=== PATIENT | female | born 1995 | race Caucasian/White ===

== ENCOUNTER 2017-02-25 19:06 | Emergency (ER) | payer MEDICAID ==
[2017-02-25] MEDS ORDERED: Zofran 4 MG/2 ML VIAL IV ONE (20:08)
[2017-02-25] MEDS ORDERED: TORAdol 30 mg Injection IV ONE (20:08)
[2017-02-25] MEDS ORDERED: Pepcid 20 MG VIAL IV ONE ×3 (20:08→20:23)
[2017-02-25] MEDS ORDERED: Zofran 4 MG/2 ML VIAL ONE ×2 (20:15→20:23)
[2017-02-25] MEDS ORDERED: TORAdol 30 mg Injection ONE ×2 (20:15→20:23)
[2017-02-25 20:37] LABS: BASOPHIL % 0.1 % (0.0-0.4); Eosinophil % 0.1 % (0.00-5.0); Granulocytes % 88.4 % (36.0-66.0); Lymphocytes % 6.4 % (24.0-44.0); Mean Cell Volume 87.2 fl (78-100); Mean Corpuscular Hemoglobin 28.2 pg (26-32); Mean Platelet Volume 10.1 fl (6-9.5); Platelet Count 272 K/mm3 (150-450); Red Blood Count 4.68 M/mm3 (4.1-5.4); White Blood Count 14.8 K/mm3 (4.0-10.5)
[2017-02-25 20:43] LABS: Bilirubin NEGATIVE (NEGATIVE); Blood TRACE NON-HEM Ery/ul (0-5); COMPLETE URINE MICROSCOPIC? YES; Collection Type VOID; Glucose NEGATIVE (NEGATIVE); Leukocyte Esterase NEGATIVE (NEGATIVE); Mucus MODERATE /HPF (NEGATIVE); WBC 0-2 /HPF (0-5)
[2017-02-25 20:44] LABS: ADD URINE CULTURE? YES (NO); Bacteria MODERATE /HPF (NEGATIVE); Epithelial Cells MODERATE /HPF (FEW)
--- NOTE | 2017-02-25 20:49 | ERPHSYRPT ---
- History of Present Illness Time Seen by Provider: 02/25/17 19:35 Historian: patient Exam Limitations: no limitations Patient Subjective Stated Complaint: alert. has a bunch of concerns. vomiting and nausea. states low abdominal pain with vaginal odor. states talked with MD office and they were suppose to call out a prescription for clindamycin and diflucan. states RX was not there. vaginal drainage yellow. has burning with urinating. Triage Nursing Assessment: alert with low abdominal pain. period at thanksgiving. has had vaginal odor. abdomen soft non tender. + BSx4 states dysuria. able to obtain a small urine. Physician History: Pt started c/o lower abdominal cramps 4 days ago, started vomiting today, developed diarrhea, also c/o foul smelling vaginal discharge for few days. She apparently called her doctor, and antibiotics and Diflucan was called in , she was unable to fill. She denies fever, bloody or black stools, urinary complaints , her last MP was 2 weeks ago, normal, denies current vaginal bleeding. Timing/Duration: day(s) (4), intermittent Activities at Onset: none Quality: cramping Abdominal Pain Onset Location: periumbilical Pain Radiation: no radiation Severity of Pain-Max: severe Severity of Pain-Current: mild Modifying Factors: Improves With: nothing Associated Symptoms: diarrhea, nausea, vomiting Previous symptoms: no prior history Allergies/Adverse Reactions: amitriptyline [From Elavil] Allergy (Verified 02/25/17 20:03) amoxicillin [Amoxicillin] Allergy (Verified 02/25/17 20:03) metronidazole [From Flagyl] Allergy (Verified 02/25/17 20:03) Metronidazole HCl [From Flagyl] Allergy (Verified 02/25/17 20:03) ofloxacin [From Floxin] Allergy (Verified 02/25/17 20:03) Stcakmx-[id number]-[id number] Reductase Inhibitor Allergy (Verified 02/25/17 20:04) caffeine Adverse Reaction (Verified 02/25/17 20:03) codeine Adverse Reaction (Verified 02/25/17 20:03) Home Medications: Famotidine 20 mg [Pepcid 20 MG] 20 mg PO BID 02/25/17 [History] Hctz/Triamteren 37.5 mg/25 mg* [Maxzide-25MG Tablet] 1 tab PO DAILY 02/25/17 [History] Hydroxychloroquine Sulfate [Plaquenil] 200 mg PO BID 02/25/17 [History] Oxcarbazepine [Trileptal] 600 mg PO BID 02/25/17 [History] PANTOPRAZOLE 40 mg Tablet [Protonix 40MG Tablet] 40 mg PO QPM 02/25/17 [ History] Propranolol HCl 80 mg PO BID 02/25/17 [History] Sertraline HCl [Zoloft] 150 mg PO DAILY 02/25/17 [History] Trazodone HCl [Desyrel] 75 mg PO DAILY 02/25/17 [History] Verapamil HCl [Verapamil ER] 240 mg PO DAILY 02/25/17 [History] Hx Tetanus, Diphtheria Vaccination/Date Given: Yes Hx Influenza Vaccination/Date Given: No Hx Pneumococcal Vaccination/Date Given: No Immunizations Up to Date: (unknown) - Review of Systems Constitutional: No Symptoms Abdominal/Gastrointestinal: Abdominal Pain, Nausea, Vomiting, Diarrhea Genitourinary Symptoms: Vaginal Discharge All Other Systems: Reviewed and Negative - Past Medical History Pertinent Past Medical History: Yes Neurological History: No Pertinent History ENT History: No Pertinent History Cardiac History: High Cholesterol, Hypertension Respiratory History: No Pertinent History Endocrine Medical History: No Pertinent History Musculoskeletal History: No Pertinent History GI Medical History: Other History: No Pertinent History Psycho-Social History: Anxiety, Bipolar, Depression Female Reproductive Disorders: No Pertinent History - Past Surgical History Past Surgical History: Yes Neuro Surgical History: No Pertinent History Cardiac: No Pertinent History Respiratory: No Pertinent History Gastrointestinal: No Pertinent History Genitourinary: No Pertinent History Musculoskeletal: No Pertinent History Female Surgical History: No Pertinent History Other Surgical History: EAR SURG - Social History Smoking Status: Never smoker Exposure to second hand smoke: No Drug Use: none Patient Lives Alone: No Significant Family History: no pertinent family hx - Female History Hx Last Menstrual Period: 01/12/2017 Hx Now: No - Nursing Vital Signs Nursing Vital Signs: Initial Vital Signs Temperature 98.7 F 02/25/17 19:44 Pulse Rate 94 H 02/25/17 19:44 Respiratory Rate 18 02/25/17 19:44 Blood Pressure 126/75 02/25/17 19:44 O2 Sat by Pulse Oximetry 97 02/25/17 19:44 Pain Scale Pain Intensity 5 - Physical Exam General Appearance: no apparent distress Eye Exam: eyes nml inspection Ears, Nose, Throat Exam: normal ENT inspection Neck Exam: normal inspection, non-tender, supple Respiratory Exam: normal breath sounds, lungs clear Cardiovascular Exam: regular rate/rhythm, normal heart sounds, normal peripheral pulses, No murmur Gastrointestinal/Abdomen Exam: soft, normal bowel sounds, tenderness (diffuse, mild), No ecchymosis, No rebound, No hernia, No organomegaly Pelvic Exam: normal external exam, adnexal tenderness (mild, right), vaginal discharge (mild, white, thick), other (no foreign body found), No adnexal mass, No cervical motion tenderness, No vaginal bleeding, No uterine tenderness Extremity Exam: normal inspection, No calf tenderness Neurologic Exam: alert, oriented x 3, normal mood/affect Skin Exam: normal color, warm, dry, No rash Lymphatic Exam: No adenopathy SpO2: 97 Oxygen Delivery: Room Air - CT Exams Abdomen/Pelvis CT Interpretation: Negative Ordered Tests: Active Orders 24 hr Category Date Time Status Clean Catch Urine Specimen STAT Care 02/25/17 20:06 Active ABDOMEN AND PELVIS W CONTRAST [CT] Stat Exams 02/25/17 20:06 Taken CBC W DIFF Stat Lab 02/25/17 20:34 Completed CMP Stat Lab 02/25/17 20:34 Completed CULTURE,URINE Stat Lab 02/25/17 20:15 Received HCG,QUALITATIVE URINE Stat Lab 02/25/17 20:15 Completed LIPASE Stat Lab 02/25/17 20:34 Completed UA W/ MICROSCOPIC Stat Lab 02/25/17 20:15 Completed Wet Prep Stat Lab 02/25/17 22:00 Completed Medication Summary Discontinued Medications Generic Name Dose Route Start Last Admin Trade Name Emmy PRN Reason Stop Dose Admin Azithromycin 1,000 mg 02/25/17 22:23 02/25/17 22:26 Zithromax 250 Mg Tablet PO 02/25/17 22:24 1,000 mg STAT ONE Administration Azithromycin Confirm 02/25/17 22:25 Zithromax 250 Mg Tablet Administered 02/25/17 22:26 Dose 1,000 mg .ROUTE .STK-MED ONE Famotidine 20 mg 02/25/17 20:08 02/25/17 20:42 Pepcid 20 Mg Vial IV 02/25/17 20:09 20 mg STAT ONE Administration Famotidine Confirm 02/25/17 20:15 Pepcid 20 Mg Vial Administered 02/25/17 20:16 Dose 20 mg IV .STK-MED ONE Famotidine Confirm 02/25/17 20:23 Pepcid 20 Mg Vial Administered 02/25/17 20:24 Dose 20 mg IV .STK-MED ONE Ketorolac Tromethamine 30 mg 02/25/17 20:08 02/25/17 20:42 Toradol 30 Mg Injection IV 02/25/17 20:09 30 mg STAT ONE Administration Ketorolac Tromethamine Confirm 02/25/17 20:15 Toradol 30 Mg Injection Administered 02/25/17 20:16 Dose 30 mg .ROUTE .STK-MED ONE Ketorolac Tromethamine Confirm 02/25/17 20:23 Toradol 30 Mg Injection Administered 02/25/17 20:24 Dose 30 mg .ROUTE .STK-MED ONE Ondansetron HCl 4 mg 02/25/17 20:08 02/25/17 20:42 Zofran 4 Mg/2 Ml Vial IV 02/25/17 20:09 4 mg STAT ONE Administration Ondansetron HCl Confirm 02/25/17 20:15 Zofran 4 Mg/2 Ml Vial Administered 02/25/17 20:16 Dose 4 mg .ROUTE .STK-MED ONE Ondansetron HCl Confirm 02/25/17 20:23 Zofran 4 Mg/2 Ml Vial Administered 02/25/17 20:24 Dose 4 mg .ROUTE .STK-MED ONE Lab/Rad Data: Laboratory Result Diagrams 02/25/17 20:34 02/25/17 20:34 Laboratory Results 02/25/17 02/25/17 02/25/17 Range/Units 22:00 20:34 20:34 WBC 14.8 H (4.0-10.5) K/mm3 RBC 4.68 (4.1-5.4) M/mm3 Hgb 13.2 (12.0-16.0) gm/dl Hct 40.8 (35-47) % MCV 87.2 (78-100) fl MCH 28.2 (26-32) pg MCHC 32.4 (32-36) g/dl RDW 14.0 (11.5-14.0) % Plt Count 272 (150-450) K/mm3 MPV 10.1 H (6-9.5) fl Gran % 88.4 H (36.0-66.0) % Lymphocytes % 6.4 L (24.0-44.0) % Monocytes % 5.0 (0.0-12.0) % Eosinophils % 0.1 (0.00-5.0) % Basophils % 0.1 (0.0-0.4) % Basophils # 0.02 (0-0.4) Sodium 139 (136-145) mEq/L Potassium 3.7 (3.5-5.1) mEq/L Chloride 104 (98-107) mEq/L Carbon Dioxide 21.0 (21-32) mEq/L Anion Gap 17.6 H (5-15) MEQ/L BUN 11 (9-20) mg/dL Creatinine 0.92 (0.55-1.30) mg/dl Estimated GFR > 60 ML/MIN Glucose 92 (70-110) MG/DL Calcium 9.2 (8.5-10.1) mg/dL Total Bilirubin 0.50 (0.2-1.0) mg/dL AST 22 (15-37) U/L ALT 13 (12-78) U/L Alkaline Phosphatase 86 (46-116) U/L Serum Total Protein 7.8 (6.4-8.2) gm/dL Albumin 3.7 (3.4-5.0) g/dL Lipase 123 (73-393) U/L Ur Collection Type Urine Color (YELLOW) Urine Appearance (CLEAR) Urine pH (5-6) Ur Specific [place] (1.005-1.025) Urine Protein (Negative) Urine Ketones (NEGATIVE) Urine Blood (0-5) Lon/ul Urine Nitrite (NEGATIVE) Urine Bilirubin (NEGATIVE) Urine Urobilinogen (0-1) mg/dL Ur Leukocyte Esterase (NEGATIVE) Urine Microscopic RBC (0-2) /HPF Urine Microscopic WBC (0-5) /HPF Ur Epithelial Cells (FEW) /HPF Urine Bacteria (NEGATIVE) /HPF Urine Mucus (NEGATIVE) /HPF Urine Culture Reflexed (NO) Urine Glucose (NEGATIVE) mg/dL Urine HCG, Qual (Negative) WBC (Wet Prep) Rare RBC (Wet Prep) None Seen Epi Cells (Wet Prep) Few Bacteria (Wet Prep) Few Clue Cells (Wet Prep) Rare Trichomonas (Wet Prep) None Seen Budding Yeast (Wet Prp) None Seen Specimen Received 02/25/17 02/25/17 Range/Units 20:15 20:15 WBC (4.0-10.5) K/mm3 RBC (4.1-5.4) M/mm3 Hgb (12.0-16.0) gm/dl Hct (35-47) % MCV (78-100) fl MCH (26-32) pg MCHC (32-36) g/dl RDW (11.5-14.0) % Plt Count (150-450) K/mm3 MPV (6-9.5) fl Gran % (36.0-66.0) % Lymphocytes % (24.0-44.0) % Monocytes % (0.0-12.0) % Eosinophils % (0.00-5.0) % Basophils % (0.0-0.4) % Basophils # (0-0.4) Sodium (136-145) mEq/L Potassium (3.5-5.1) mEq/L Chloride (98-107) mEq/L Carbon Dioxide (21-32) mEq/L Anion Gap (5-15) MEQ/L BUN (9-20) mg/dL Creatinine (0.55-1.30) mg/dl Estimated GFR ML/MIN Glucose (70-110) MG/DL Calcium (8.5-10.1) mg/dL Total Bilirubin (0.2-1.0) mg/dL AST (15-37) U/L ALT (12-78) U/L Alkaline Phosphatase (46-116) U/L Serum Total Protein (6.4-8.2) gm/dL Albumin (3.4-5.0) g/dL Lipase (73-393) U/L Ur Collection Type VOID Urine Color YELLOW (YELLOW) Urine Appearance CLEAR (CLEAR) Urine pH 5.0 (5-6) Ur Specific [place] 1.020 (1.005-1.025) Urine Protein TRACE (Negative) Urine Ketones NEGATIVE (NEGATIVE) Urine Blood TRACE NON-HEM (0-5) Lon/ul Urine Nitrite NEGATIVE (NEGATIVE) Urine Bilirubin NEGATIVE (NEGATIVE) Urine Urobilinogen NORMAL (0-1) mg/dL Ur Leukocyte Esterase NEGATIVE (NEGATIVE) Urine Microscopic RBC 2-5 (0-2) /HPF Urine Microscopic WBC 0-2 (0-5) /HPF Ur Epithelial Cells MODERATE (FEW) /HPF Urine Bacteria MODERATE (NEGATIVE) /HPF Urine Mucus MODERATE (NEGATIVE) /HPF Urine Culture Reflexed YES (NO) Urine Glucose NEGATIVE (NEGATIVE) mg/dL Urine HCG, Qual NEGATIVE (Negative) WBC (Wet Prep) RBC (Wet Prep) Epi Cells (Wet Prep) Bacteria (Wet Prep) Clue Cells (Wet Prep) Trichomonas (Wet Prep) Budding Yeast (Wet Prp) Specimen Received 02/25/172019 - Progress Progress: improved Progress Note: 02/25/17 22:29 Improved, did not vomit, afebrile, PO Zithromax given, pt is allergic to Flagyl , discussed results with her and her mother, she agreed with the plan to discharge her on PO Doxycycline, and to follow up with [facility]. - Departure Time of Disposition: 22:30 Departure Disposition: Home Clinical Impression: Pelvic inflammatory disease (PID) Condition: Stable Critical Care Time: No Referrals: HANNAH AMAYA [Primary Care Provider] - Instructions: Pelvic Inflammatory Disease Additional Instructions: Rest x 2-3 days, drink plenty of fluids, return if severe pain, bleeding, vomiting, fever> 103 F, follow up with [facility] in 1 week!
[2017-02-25 21:03] LABS: ALBUMIN 3.7 g/dL (3.4-5.0); ALKALINE PHOSPHATASE 86 U/L (46-116); ANION GAP 17.6 MEQ/L (5-15); BLOOD UREA NITROGEN 11 mg/dL (9-20); CHLORIDE 104 mEq/L (98-107); Glucose 92 MG/DL (70-110); LIPASE 123 U/L (73-393); Potassium 3.7 mEq/L (3.5-5.1); SGOT/AST 22 U/L (15-37); SGPT/ALT 13 U/L (12-78); SODIUM 139 mEq/L (136-145); Total Protein 7.8 gm/dL (6.4-8.2)
[2017-02-25 22:04] VITALS: BP 117/55; PULSE 78
[2017-02-25 22:15] LABS: Bacteria Few; Clue Cells Rare; Trichomonas None Seen; Yeast None Seen
[2017-02-25] MEDS ORDERED: Zithromax 250 MG TABLET PO ONE (22:23)
[2017-02-25] MEDS ORDERED: Zithromax 250 MG TABLET ONE (22:25)
[2017-02-25 22:32] VITALS: O2SAT 97
[2017-02-25 23:34] LABS: CHLAMYDIA DNA NEGATIVE
--- NOTE | 2017-02-26 08:36 | XRAY ---
Indication: Upper abdominal pain, nausea, vomiting, and diarrhea. Multiple contiguous axial images obtained through the abdomen and pelvis using 80 cc Isovue 370 contrast only. Comparison: October 06, 2016. Lung bases are clear. Heart is not enlarged. Noncontrasted stomach and bowel loops appear nonobstructed. Normal appendix. No free fluid/air. Minimal sigmoid diverticulosis. Previous cholecystectomy. Spleen is borderline enlarged measuring 12.1 cm in greatest axial dimension. Remaining liver, pancreas, spleen, adrenal glands, kidneys, ureters, bladder, uterus, and aorta appear unremarkable. No pathologic retroperitoneal lymphadenopathy. Osseous structures intact. Impression: 1. Minimal sigmoid diverticulosis and borderline splenomegaly. 2. Remaining CT abdomen/pelvis with contrast exam is negative. CT DI 23.68
== END 2017-02-25 22:36 | disposition home or self-care (01) ==
LOC: ED 19:06
DX: N73.9 Female pelvic inflammatory disease, unspecified (principal); R11.2 Nausea with vomiting, unspecified; R10.30 Lower abdominal pain, unspecified; R19.7 Diarrhea, unspecified
CPT/HCPCS: 36000; 36415; 74177; 80053; 81000; 83690; 84703; 85025; 87086; 87210; 87490; 87590; 99284; J1885; J2405; A9270-GY

== ENCOUNTER 2017-08-28 11:25 | Emergency (ER) | payer MEDICAID ==
[2017-08-28 11:35] VITALS: BP 144/79; PULSE 60
[2017-08-28 11:44] VITALS: O2SAT 98
--- NOTE | 2017-08-28 12:12 | ERPHSYRPT ---
- History of Present Illness Time Seen by Provider: 08/28/17 12:02 Source: patient Exam Limitations: no limitations Patient Subjective Stated Complaint: Right Ear and Jaw Pain, itching skin around neck and upper back. Triage Nursing Assessment: Pt presents to the ED with complaints of rash to face and neck. No obvious rash noted. Pt states "I can feel a rash but I can't see anything." Pt states onset yesterday. Pt also states right ear and jaw pain x2 days. No distress noted, denies SOB, skin PWD. Physician History: 22-year-old white female who states she has a history of lupus, hyperlipidemia, anxiety, high blood pressure, depression She arrives with complaints that she has a rash on the side of her face on her ears and on her neck symptoms since yesterday. She also states that she feels like she has swelling inferior to her right ear and posterior to the angle of her right mandible symptoms for 2 days. Patient has not had a fever. Past medical history includes hyperlipidemia, high blood pressure, anxiety, depression. Past surgical history includes ear surgery Patient states she is on her menstrual period at this time. Timing/Duration: yesterday Severity: mild Associated Symptoms: rash (stated rash), No denies symptoms, No nausea, No vomiting, No abdominal pain, No shortness of breath, No heartburn, No diaphoresis, No cough, No chills, No chest pain, No fever, No headaches, No loss of appetite, No syncope, No seizure, No weakness Allergies/Adverse Reactions: amitriptyline [From Elavil] Allergy (Verified 02/25/17 20:03) amoxicillin [Amoxicillin] Allergy (Verified 02/25/17 20:03) metronidazole [From Flagyl] Allergy (Verified 02/25/17 20:03) Metronidazole HCl [From Flagyl] Allergy (Verified 02/25/17 20:03) ofloxacin [From Floxin] Allergy (Verified 02/25/17 20:03) Okmpcvp-Ezo-Hyc Reductase Inhibitor Allergy (Verified 02/25/17 20:04) caffeine Adverse Reaction (Verified 02/25/17 20:03) codeine Adverse Reaction (Verified 02/25/17 20:03) Home Medications: Famotidine 20 mg [Pepcid 20 MG] 20 mg PO BID 02/25/17 [History] Hctz/Triamteren 37.5 mg/25 mg* [Maxzide-25MG Tablet] 1 tab PO DAILY 02/25/17 [History] Oxcarbazepine [Trileptal] 600 mg PO BID 02/25/17 [History] PANTOPRAZOLE 40 mg Tablet [Protonix 40MG Tablet] 40 mg PO QPM 02/25/17 [ History] Propranolol HCl 80 mg PO BID 02/25/17 [History] Sertraline HCl [Zoloft] 150 mg PO DAILY 02/25/17 [History] Trazodone HCl [Desyrel] 75 mg PO DAILY 02/25/17 [History] Verapamil HCl [Verapamil ER] 240 mg PO DAILY 02/25/17 [History] Hx Tetanus, Diphtheria Vaccination/Date Given: Yes (2014) Hx Influenza Vaccination/Date Given: No Hx Pneumococcal Vaccination/Date Given: No Immunizations Up to Date: No - Review of Systems Constitutional: No Fever, No Chills Eyes: No Symptoms Ears, Nose, & Throat: Other (patient with sensation of swelling posterior to the mandible and inferior to right ear), No Ear Pain, No Ear Discharge, No Hearing Changes, No Tinnitus, No Nose Pain, No Nose Congestion, No Nose Discharge, No Sinus Drainage, No Epistaxis, No Mouth Pain, No Mouth Swelling, No Loose Teeth, No Throat Pain, No Throat Swelling, No Hoarse, No Painful Swallowing, No Snoring, No Stridor Respiratory: No Cough, No Dyspnea Cardiac: No Chest Pain, No Edema, No Syncope Abdominal/Gastrointestinal: No Abdominal Pain, No Nausea, No Vomiting, No Diarrhea Genitourinary Symptoms: No Dysuria Musculoskeletal: No Back Pain, No Neck Pain Skin: Rash (patient states she has a rash on her ears, on her neck in on the right side of her face) Neurological: No Dizziness, No Focal Weakness, No Sensory Changes Psychological: No Symptoms Endocrine: No Symptoms All Other Systems: Reviewed and Negative - Past Medical History Pertinent Past Medical History: Yes Neurological History: No Pertinent History ENT History: No Pertinent History Cardiac History: High Cholesterol, Hypertension Respiratory History: No Pertinent History Endocrine Medical History: No Pertinent History Musculoskeletal History: No Pertinent History GI Medical History: Other History: No Pertinent History Psycho-Social History: Anxiety, Bipolar, Depression Female Reproductive Disorders: No Pertinent History - Past Surgical History Past Surgical History: Yes Neuro Surgical History: No Pertinent History Cardiac: No Pertinent History Respiratory: No Pertinent History Gastrointestinal: No Pertinent History Genitourinary: No Pertinent History Musculoskeletal: No Pertinent History Female Surgical History: No Pertinent History Other Surgical History: EAR SURG - Social History Smoking Status: Never smoker Exposure to second hand smoke: No Drug Use: none Patient Lives Alone: No Significant Family History: no pertinent family hx - Female History Hx Last Menstrual Period: 08/25/2017 Hx Now: No - Nursing Vital Signs Nursing Vital Signs: Initial Vital Signs Temperature 98.2 F 08/28/17 11:31 Pulse Rate 60 08/28/17 11:31 Respiratory Rate 16 08/28/17 11:31 Blood Pressure 144/79 08/28/17 11:31 O2 Sat by Pulse Oximetry 97 08/28/17 11:31 Pain Scale Pain Intensity 8 - Physical Exam General Appearance: no apparent distress, alert Eye Exam: PERRL/EOMI, eyes nml inspection Ears, Nose, Throat Exam: normal ENT inspection, TMs normal, pharynx normal, moist mucous membranes, other (mild tenderness inferior to right ear and posterior to mandible with palpation questionable slight edema in this area) Neck Exam: normal inspection, non-tender, supple, full range of motion Respiratory Exam: normal breath sounds, lungs clear, No respiratory distress Cardiovascular Exam: regular rate/rhythm, normal heart sounds, normal peripheral pulses Gastrointestinal/Abdomen Exam: soft, normal bowel sounds, No tenderness, No mass Back Exam: normal inspection, normal range of motion, No CVA tenderness, No vertebral tenderness Extremity Exam: normal inspection, normal range of motion, pelvis stable Neurologic Exam: alert, oriented x 3, cooperative, tactical/mobile watch officer II-XII nml as tested, normal mood/affect, nml cerebellar function, nml station & gait, sensation nml, No motor deficits Skin Exam: normal color, warm, dry, other (I really do not appreciate a rash), No rash SpO2 Interpretation: normal (98%) SpO2: 98 Oxygen Delivery: Room Air - Course Nursing assessment & vital signs reviewed: Yes - Progress Progress: improved Progress Note: 08/28/17 12:13 This is a 22-year-old white female she arrives with complaint of a rash which she states she feels on the top of her ears on the side of her face and on her neck I do not really appreciate this and I cannot see a rash. She has some tenderness just posterior to the angle of the mandible on the right side of her neck. She feels like this is a swollen, I really am having a hard time seeing this as well however possibly could have a trace enlargement in the nodes in this area. Patient really stable vital signs she has no fever. She does have a carious tooth however this really does not appear to be bothering her in the right mandibular region and she has no tenderness corresponding to the tooth on the side of the mandible corresponding to this. Patient could have a mild viral infection with some adenopathy. Will have patient return home Benadryl 50 mg orally every 6 hours as needed for 2-3 days for rash, plenty of fluids, Tylenol every 4-6 hours as needed for pain. - Departure Time of Disposition: 12:16 Departure Disposition: Home Clinical Impression: subjective rash face/neck, Cervical lymphadenopathy Condition: Fair Critical Care Time: No Referrals: HANNAH AMAYA [Primary Care Provider] - Additional Instructions: Return home Benadryl 50 mg orally every 6 hours as needed for 2-3 days. Plenty of fluids. Tylenol every 4 hours as needed for pain. Follow-up with your family doctor if symptoms are worse, no better in 48 hours, or persist longer than one week. Return for acute distress or for severe symptoms.
== END 2017-08-28 12:26 | disposition home or self-care (01) ==
LOC: ED 11:25
DX: R21 Rash and other nonspecific skin eruption (principal); R59.1 Generalized enlarged lymph nodes; Z79.899 Other long term (current) drug therapy
CPT/HCPCS: 99283

== ENCOUNTER 2018-10-05 11:17 | Emergency (ER) | payer MEDICAID ==
[2018-10-05 12:06] LABS: BASOPHIL % 0.2 % (0.0-0.4); Basophil (Absolute #) 0.02 (0-0.4); Eosinophil % 1.3 % (0.00-5.0); Eosinophil (Absolute #) 0.14 (0-0.5); Granulocyte Absolute (ANC) 7.46 (1.4-6.9); Hematocrit 41.3 % (35-47); Hemoglobin 14.1 gm/dl (12.0-16.0); Lymphocyte (Absolute #) 2.72 (1.0-4.6); Lymphocytes % 24.8 % (24.0-44.0); Mean Cell Volume 89.2 fl (78-100); Mean Corpuscular Hemoglobin 30.5 pg (26-32); Mean Corpuscular Hgb Concent. 34.1 g/dl (32-36); Mean Platelet Volume 9.4 fl (6-9.5); Monocyte (Absolute #) 0.63 (0.0-1.3); Monocytes % 5.7 % (0.0-12.0); Platelet Count 249 K/mm3 (150-450); Red Blood Count 4.63 M/mm3 (4.1-5.4); Red Cell Distribution Width 13.8 % (11.5-14.0)
[2018-10-05 12:21] LABS: ALBUMIN 4.2 g/dL (3.5-5.0); ALKALINE PHOSPHATASE 89 U/L (38-126); ANION GAP 11.7 MEQ/L (5-15); BLOOD UREA NITROGEN 16 mg/dL (7-17); CHLORIDE 108 mmol/L (98-107); Calcium 9.6 mg/dL (8.4-10.2); Carbon Dioxide 26 mmol/L (22-30); Creatinine 1 0.74 mg/dL (0.52-1.04); Glucose 98 mg/dL (74-106); Potassium 4.5 mmol/L (3.5-5.1); SGOT/AST 25 U/L (14-36); SGPT/ALT 27 U/L (0-35); SODIUM 141 mmol/L (137-145); Total Protein 7.6 g/dL (6.3-8.2)
--- NOTE | 2018-10-05 16:11 | ERPHSYRPT ---
- History of Present Illness Historian: patient Exam Limitations: no limitations Patient Subjective Stated Complaint: STATES STARTED HAVING CHEST PAIN APPROX ONE HOUR AGO. HX LUPUS BUT STATES THIS PAIN IS DIFFERENT Triage Nursing Assessment: AMBULATED TO ROOM PER SELF. SKIN W/D, COLOR NORMAL, RESP NONLABORED. STATES PAIN IS INTERMITTENT. Physician History: Pt is a 23 y/o that presented to the ED with chest pain. The pain is reproducible, and is radiating to L arm and back. Pt denies F/C/S. No SOB or cough. No N/V/D or abdominal pain. Pt denies dysuria, frequency and urgency. Timing/Duration: today Activities at Onset: none Quality: aching, stabbing, throbbing Location: shoulder (Left chest) Severity of Pain-Max: moderate Severity of Pain-Current: mild Modifying Factors: Improves With: breathing, lying down, change in position Associated Symptoms: denies symptoms Prior Chest Pain/Cardiac Workup: no prior cardiac workup Nitro Today/Relief: no nitro taken today Aspirin Treatment Today: no aspirin today Allergies/Adverse Reactions: amitriptyline [From Elavil] Allergy (Verified 10/05/18 11:44) amoxicillin [Amoxicillin] Allergy (Verified 10/05/18 11:44) metronidazole [From Flagyl] Allergy (Verified 10/05/18 11:44) Metronidazole HCl [From Flagyl] Allergy (Verified 10/05/18 11:44) ofloxacin [From Floxin] Allergy (Verified 10/05/18 11:44) Ctymxfr-Wyr-Fmn Reductase Inhibitor Allergy (Verified 10/05/18 11:44) caffeine Adverse Reaction (Verified 10/05/18 11:44) codeine Adverse Reaction (Verified 10/05/18 11:44) Home Medications: Famotidine 20 mg [Pepcid 20 MG] 20 mg PO BID 02/25/17 [History] Oxcarbazepine [Trileptal] 600 mg PO BID 02/25/17 [History] PANTOPRAZOLE 40 mg Tablet [Protonix 40MG Tablet] 40 mg PO QPM 02/25/17 [ History] Propranolol HCl 80 mg PO BID 02/25/17 [History] Trazodone HCl [Desyrel] 75 mg PO DAILY 02/25/17 [History] Verapamil HCl [Verapamil ER] 240 mg PO DAILY 02/25/17 [History] Fluvoxamine Maleate [Fluvoxamine Maleate ER] 100 mg PO DAILY 10/05/18 [History] Hx Tetanus, Diphtheria Vaccination/Date Given: Yes Hx Influenza Vaccination/Date Given: No Hx Pneumococcal Vaccination/Date Given: No - Review of Systems Constitutional: No Fever, No Chills Eyes: No Symptoms Ears, Nose, & Throat: No Symptoms Respiratory: No Cough, No Dyspnea Cardiac: Chest Pain Abdominal/Gastrointestinal: No Abdominal Pain, No Nausea, No Vomiting, No Diarrhea Genitourinary Symptoms: No Dysuria Musculoskeletal: Other (Pain over L chest and arm) Skin: No Rash Neurological: No Dizziness, No Focal Weakness, No Sensory Changes - Past Medical History Pertinent Past Medical History: Yes Neurological History: No Pertinent History ENT History: No Pertinent History Cardiac History: High Cholesterol, Hypertension Respiratory History: No Pertinent History Endocrine Medical History: No Pertinent History Musculoskeletal History: No Pertinent History GI Medical History: Other History: No Pertinent History Psycho-Social History: Anxiety, Bipolar, Depression Female Reproductive Disorders: No Pertinent History Other Medical History: LUPUS - Past Surgical History Past Surgical History: Yes Neuro Surgical History: No Pertinent History Cardiac: No Pertinent History Respiratory: No Pertinent History Gastrointestinal: Cholecystectomy Genitourinary: No Pertinent History Musculoskeletal: Orthopedic Surgery Female Surgical History: No Pertinent History Other Surgical History: EAR SURG, FOOT SURGERY - Social History Smoking Status: Never smoker Exposure to second hand smoke: No Drug Use: none Patient Lives Alone: No Significant Family History: no pertinent family hx - Female History Hx Last Menstrual Period: TWO WEEKS AGO Hx Now: No - Nursing Vital Signs Nursing Vital Signs: Initial Vital Signs Temperature 98.3 F 10/05/18 11:31 Pulse Rate 80 10/05/18 11:31 Respiratory Rate 16 10/05/18 11:31 Blood Pressure 111/92 10/05/18 11:31 O2 Sat by Pulse Oximetry 98 10/05/18 11:31 Pain Scale Pain Intensity 6 - Physical Exam General Appearance: mild distress Eye Exam: PERRL/EOMI, eyes nml inspection Ears, Nose, Throat Exam: normal ENT inspection, moist mucous membranes Neck Exam: normal inspection, non-tender, supple, full range of motion Respiratory Exam: normal breath sounds, lungs clear, No respiratory distress Cardiovascular Exam: regular rate/rhythm, normal heart sounds Gastrointestinal/Abdomen Exam: soft, No tenderness, No mass Back Exam: normal inspection, No CVA tenderness, No vertebral tenderness Extremity Exam: normal inspection, normal range of motion Neurologic Exam: alert, oriented x 3, cooperative, normal mood/affect, sensation nml, No motor deficits SpO2 Interpretation: normal SpO2: 99 O2 Delivery: Room Air - Course Nursing assessment & vital signs reviewed: Yes EKG Interpreted by Me: RATE (72bpm), Sinus Rhythm, NORMAL INTERVALS, NORMAL QRS , NORMAL ST-T Ordered Tests: Active Orders 24 hr Category Date Time Status CBC W DIFF Stat Lab 10/05/18 11:55 Completed CMP Stat Lab 10/05/18 11:55 Completed D-DIMER QUANTITATION Stat Lab 10/05/18 11:55 Completed HCG,QUALITATIVE URINE Stat Lab 10/05/18 12:13 Completed TROPONIN Q3H Lab 10/05/18 11:55 Completed TROPONIN Q3H Lab 10/05/18 15:00 Completed TROPONIN Q3H Lab 10/05/18 18:00 Ordered TROPONIN Q3H Lab 10/05/18 21:00 Ordered TROPONIN Q3H Lab 10/06/18 00:00 Ordered Lab/Rad Data: Laboratory Result Diagrams 10/05/18 11:55 10/05/18 11:55 Laboratory Results 10/05/18 10/05/18 10/05/18 Range/Units 15:00 12:13 11:55 WBC (4.0-10.5) K/mm3 RBC (4.1-5.4) M/mm3 Hgb (12.0-16.0) gm/dl Hct (35-47) % MCV (78-100) fl MCH (26-32) pg MCHC (32-36) g/dl RDW (11.5-14.0) % Plt Count (150-450) K/mm3 MPV (6-9.5) fl Gran % (36.0-66.0) % Eos # (Auto) (0-0.5) Absolute Lymphs (auto) (1.0-4.6) Absolute Monos (auto) (0.0-1.3) Lymphocytes % (24.0-44.0) % Monocytes % (0.0-12.0) % Eosinophils % (0.00-5.0) % Basophils % (0.0-0.4) % Absolute Granulocytes (1.4-6.9) Basophils # (0-0.4) D-Dimer (215-500) ng/mL Sodium (137-145) mmol/L Potassium (3.5-5.1) mmol/L Chloride (98-107) mmol/L Carbon Dioxide (22-30) mmol/L Anion Gap (5-15) MEQ/L BUN (7-17) mg/dL Creatinine (0.52-1.04) mg/dL Estimated GFR ML/MIN Glucose (74-106) mg/dL Calcium (8.4-10.2) mg/dL Total Bilirubin (0.2-1.3) mg/dL AST (14-36) U/L ALT (0-35) U/L Alkaline Phosphatase (38-126) U/L Troponin I < 0.012 < 0.012 (0.000-0.034) ng/mL Serum Total Protein (6.3-8.2) g/dL Albumin (3.5-5.0) g/dL Urine HCG, Qual NEGATIVE (Negative) 10/05/18 10/05/18 10/05/18 Range/Units 11:55 11:55 11:55 WBC 11.0 H (4.0-10.5) K/mm3 RBC 4.63 (4.1-5.4) M/mm3 Hgb 14.1 (12.0-16.0) gm/dl Hct 41.3 (35-47) % MCV 89.2 (78-100) fl MCH 30.5 (26-32) pg MCHC 34.1 (32-36) g/dl RDW 13.8 (11.5-14.0) % Plt Count 249 (150-450) K/mm3 MPV 9.4 (6-9.5) fl Gran % 68.0 H (36.0-66.0) % Eos # (Auto) 0.14 (0-0.5) Absolute Lymphs (auto) 2.72 (1.0-4.6) Absolute Monos (auto) 0.63 (0.0-1.3) Lymphocytes % 24.8 (24.0-44.0) % Monocytes % 5.7 (0.0-12.0) % Eosinophils % 1.3 (0.00-5.0) % Basophils % 0.2 (0.0-0.4) % Absolute Granulocytes 7.46 H (1.4-6.9) Basophils # 0.02 (0-0.4) D-Dimer 437 (215-500) ng/mL Sodium 141 (137-145) mmol/L Potassium 4.5 (3.5-5.1) mmol/L Chloride 108 H (98-107) mmol/L Carbon Dioxide 26 (22-30) mmol/L Anion Gap 11.7 (5-15) MEQ/L BUN 16 (7-17) mg/dL Creatinine 0.74 (0.52-1.04) mg/dL Estimated GFR > 60.0 ML/MIN Glucose 98 (74-106) mg/dL Calcium 9.6 (8.4-10.2) mg/dL Total Bilirubin 0.40 (0.2-1.3) mg/dL AST 25 (14-36) U/L ALT 27 (0-35) U/L Alkaline Phosphatase 89 (38-126) U/L Troponin I (0.000-0.034) ng/mL Serum Total Protein 7.6 (6.3-8.2) g/dL Albumin 4.2 (3.5-5.0) g/dL Urine HCG, Qual (Negative) - Progress Progress: improved Air Movement: good Progress Note: 10/05/18 16:09 Pt was seen and examined. She had chest pain that was reproducible in the area between deltoid and chest. EKG was normal. Lab work was normal, with a little elevation of WBCs (maybe because of pt's SLE). Pt is safe for d/c and should f/ u with her PCP. Blood Culture(s) Obtained: No Antibiotics given: No Discussed with : Sharon Amaya Will see patient in: office Counseled pt/family regarding: need for follow-up - Departure Departure Disposition: Home Clinical Impression: Chest pain Condition: Stable Critical Care Time: No Referrals: HANNAH AMAYA [Primary Care Provider] - Additional Instructions: F/U with PCP.
[2018-10-05 16:26] VITALS: BP 129/68; PULSE 88; O2SAT 98
== END 2018-10-05 16:27 | disposition home or self-care (01) ==
LOC: ED 11:17
DX: R07.9 Chest pain, unspecified (principal); Z79.899 Other long term (current) drug therapy
CPT/HCPCS: 36000; 36415; 80053; 84484; 84703; 85025; 85379; 99284

== ENCOUNTER 2019-03-10 10:44 | Emergency (ER) | payer MEDICAID ==
--- NOTE | 2019-03-10 10:54 | ERPHSYRPT ---
- History of Present Illness Time Seen by Provider: 03/10/19 10:54 Source: patient Exam Limitations: no limitations Physician History: 23 y/o obese white female presents with 4 day h/o head cold including mild nasal congestion and cough. those sx resolved. however, 2 days ago, pt began having vomiting and diarrhea with associated mild cramping. denies cp, denies soa and denies abd pain. Timing/Duration: day(s) (4) Cough Quality/Degree: no cough Possible Cause: no prior episodes Associated Symptoms: fever, muscle aches, No chest pain/soreness, No cough, No shortness of breath Allergies/Adverse Reactions: amitriptyline [From Elavil] Allergy (Verified 03/10/19 11:13) amoxicillin [Amoxicillin] Allergy (Verified 03/10/19 11:13) metronidazole [From Flagyl] Allergy (Verified 03/10/19 11:13) Metronidazole HCl [From Flagyl] Allergy (Verified 03/10/19 11:13) ofloxacin [From Floxin] Allergy (Verified 03/10/19 11:13) Liydios-Fmg-Rzw Reductase Inhibitor Allergy (Verified 03/10/19 11:13) caffeine Adverse Reaction (Verified 03/10/19 11:13) codeine Adverse Reaction (Verified 03/10/19 11:13) Home Medications: Famotidine 20 mg [Pepcid 20 MG] 20 mg PO BID 02/25/17 [History] Oxcarbazepine [Trileptal] 1,200 mg PO HS 02/25/17 [History] PANTOPRAZOLE 40 mg Tablet [Protonix 40MG Tablet] 40 mg PO QPM 02/25/17 [ History] Propranolol HCl 40 mg PO BID 02/25/17 [History] Trazodone HCl [Desyrel] 75 mg PO DAILY 02/25/17 [History] Verapamil HCl [Verapamil ER] 240 mg PO DAILY 02/25/17 [History] Fluvoxamine Maleate [Fluvoxamine Maleate ER] 150 mg PO DAILY 10/05/18 [History] Cariprazine HCl [Vraylar] 1.5 mg PO DAILY 03/10/19 [History] Etonogestrel [Nexplanon] 68 mg SQ UD 03/10/19 [History] Hx Tetanus, Diphtheria Vaccination/Date Given: Yes Hx Influenza Vaccination/Date Given: No Hx Pneumococcal Vaccination/Date Given: No - Review of Systems Constitutional: Fever Eyes: No Symptoms Ears, Nose, & Throat: Nose Congestion Respiratory: No Symptoms Cardiac: No Symptoms Abdominal/Gastrointestinal: Abdominal Pain (mild diffuse cramping), Nausea, Vomiting, Diarrhea Genitourinary Symptoms: No Symptoms Musculoskeletal: Arthralgias, Myalgias Skin: No Symptoms Neurological: No Symptoms Psychological: No Symptoms Endocrine: No Symptoms Hematologic/Lymphatic: No Symptoms Immunological/Allergic: No Symptoms All Other Systems: Reviewed and Negative - Past Medical History Pertinent Past Medical History: Yes Neurological History: No Pertinent History ENT History: No Pertinent History Cardiac History: High Cholesterol, Hypertension Respiratory History: No Pertinent History Endocrine Medical History: No Pertinent History Musculoskeletal History: No Pertinent History GI Medical History: Other History: No Pertinent History Psycho-Social History: Anxiety, Bipolar, Depression Female Reproductive Disorders: No Pertinent History Other Medical History: LUPUS - Past Surgical History Past Surgical History: Yes Neuro Surgical History: No Pertinent History Cardiac: No Pertinent History Respiratory: No Pertinent History Gastrointestinal: Cholecystectomy Genitourinary: No Pertinent History Musculoskeletal: Orthopedic Surgery Female Surgical History: No Pertinent History Other Surgical History: EAR SURG, FOOT SURGERY - Social History Smoking Status: Never smoker Exposure to second hand smoke: No Drug Use: none Patient Lives Alone: No Significant Family History: no pertinent family hx - Nursing Vital Signs Nursing Vital Signs: Initial Vital Signs Temperature 98.5 F 03/10/19 10:55 Pulse Rate 99 H 03/10/19 10:55 Respiratory Rate 18 03/10/19 10:55 Blood Pressure 138/92 03/10/19 10:55 O2 Sat by Pulse Oximetry 98 03/10/19 10:55 Pain Scale Pain Intensity 0 - Physical Exam General Appearance: no apparent distress, alert, anxiety Eye Exam: PERRL/EOMI, eyes nml inspection Ears, Nose, Throat Exam: normal ENT inspection, moist mucous membranes Neck Exam: normal inspection, non-tender, supple, full range of motion Respiratory Exam: normal breath sounds, lungs clear, airway intact, No chest tenderness, No respiratory distress Cardiovascular Exam: regular rate/rhythm, normal heart sounds, normal peripheral pulses Gastrointestinal/Abdomen Exam: soft, normal bowel sounds, No tenderness, No guarding, No rebound Pelvic Exam: not done Rectal Exam: not done Back Exam: normal inspection, normal range of motion, No CVA tenderness, No vertebral tenderness Extremity Exam: normal inspection, normal range of motion, pelvis stable Neurologic Exam: alert, oriented x 3, cooperative, handcrew foreman II-XII nml as tested Skin Exam: normal color, warm, dry Lymphatic Exam: No adenopathy SpO2 Interpretation: normal O2 Delivery: Room Air - Course Nursing assessment & vital signs reviewed: Yes Ordered Tests: Active Orders 24 hr Category Date Time Status IV Insertion STAT Care 03/10/19 11:00 Active AMYLASE Stat Lab 03/10/19 11:00 Completed CBC W DIFF Stat Lab 03/10/19 11:00 Completed CMP Stat Lab 03/10/19 11:00 Completed CULTURE,URINE Stat Lab 03/10/19 12:30 Received HCG,QUALITATIVE URINE Stat Lab 03/10/19 12:45 Completed LIPASE Stat Lab 03/10/19 11:00 Completed Lactic Acid Stat Lab 03/10/19 11:15 Completed Manual Differential NC Stat Lab 03/10/19 11:00 Completed [place] Screen Stat Lab 03/10/19 11:00 Completed UA W/RFX UR CULTURE Stat Lab 03/10/19 12:30 Completed Medication Summary Generic Name Dose Route Start Last Admin Trade Name Freq PRN Reason Stop Dose Admin Sodium Chloride 1,000 mls @ 999 mls/hr 03/10/19 12:23 03/10/19 12:44 Sodium Chloride 0.9% 1000 Ml IV 03/10/19 13:23 999 mls/hr .Q1H1M STA Administration Discontinued Medications Generic Name Dose Route Start Last Admin Trade Name Freq PRN Reason Stop Dose Admin Sodium Chloride 1,000 mls @ 999 mls/hr 03/10/19 11:00 03/10/19 12:09 Sodium Chloride 0.9% 1000 Ml IV 03/10/19 12:00 Infused .Q1H1M STA Infusion Sodium Chloride Confirm 03/10/19 11:06 Sodium Chloride 0.9% 1000 Ml Administered 03/10/19 11:07 Dose 1,000 mls @ ud .ROUTE .STK-MED ONE Sodium Chloride Confirm 03/10/19 12:37 Sodium Chloride 0.9% 1000 Ml Administered 03/10/19 12:38 Dose 1,000 mls @ ud .ROUTE .STK-MED ONE Ondansetron HCl 4 mg 03/10/19 11:00 03/10/19 11:07 Zofran 4 Mg/2 Ml Vial IV 03/10/19 11:01 4 mg STAT ONE Administration Ondansetron HCl Confirm 03/10/19 11:06 Zofran 4 Mg/2 Ml Vial Administered 03/10/19 11:07 Dose 4 mg .ROUTE .STK-MED ONE Lab/Rad Data: Laboratory Result Diagrams 03/10/19 11:00 03/10/19 11:00 Laboratory Results 03/10/19 03/10/19 03/10/19 Range/Units 12:45 12:30 11:25 WBC (4.0-10.5) K/mm3 RBC (4.1-5.4) M/mm3 Hgb (12.0-16.0) gm/dl Hct (35-47) % MCV (78-100) fl MCH (26-32) pg MCHC (32-36) g/dl RDW (11.5-14.0) % Plt Count (150-450) K/mm3 MPV (6-9.5) fl Segmented Neutrophils (36.0-66.0) % Band Neutrophils (0.0-2.0) % Lymphocytes (Manual) (24-44) % Monocytes (Manual) (0.0-12.0) % Platelet Estimate (NORMAL) RBC Morphology Sodium (137-145) mmol/L Potassium (3.5-5.1) mmol/L Chloride (98-107) mmol/L Carbon Dioxide (22-30) mmol/L Anion Gap (5-15) MEQ/L BUN (7-17) mg/dL Creatinine (0.52-1.04) mg/dL Estimated GFR ML/MIN Glucose (74-106) mg/dL Lactic Acid (0.4-2.0) Calcium (8.4-10.2) mg/dL Total Bilirubin (0.2-1.3) mg/dL AST (14-36) U/L ALT (0-35) U/L Alkaline Phosphatase (38-126) U/L Serum Total Protein (6.3-8.2) g/dL Albumin (3.5-5.0) g/dL Amylase (30-110) U/L Lipase (23-300) U/L Urine Color YELLOW (YELLOW) Urine Appearance SLIGHTLY CLOUDY (CLEAR) Urine pH 8.0 (5-6) Ur Specific Gillespie 1.021 (1.005-1.025) Urine Protein NEGATIVE (Negative) Urine Ketones NEGATIVE (NEGATIVE) Urine Blood NEGATIVE (0-5) Lon/ul Urine Nitrite NEGATIVE (NEGATIVE) Urine Bilirubin NEGATIVE (NEGATIVE) Urine Urobilinogen NEGATIVE (0-1) mg/dL Ur Leukocyte Esterase TRACE (NEGATIVE) Urine WBC (Auto) 0-2 (0-5) /HPF Urine RBC (Auto) 0-2 (0-2) /HPF U Epithel Cells (Auto) FEW (FEW) /HPF Urine Bacteria (Auto) MODERATE (NEGATIVE) /HPF Urine Mucus (Auto) SLIGHT (NEGATIVE) /HPF Urine Culture Reflexed YES (NO) Urine Glucose NEGATIVE (NEGATIVE) mg/dL Urine HCG, Qual NEGATIVE (Negative) Monoscreen (Negative) Influenza Type A Ag NEGATIVE (NEGATIVE) Influenza Type B Ag NEGATIVE (NEGATIVE) RSV (PCR) NEGATIVE (Negative) Group A Strep Antibody NEGATIVE (NEGATIVE) 03/10/19 03/10/19 03/10/19 Range/Units 11:15 11:00 11:00 WBC (4.0-10.5) K/mm3 RBC (4.1-5.4) M/mm3 Hgb (12.0-16.0) gm/dl Hct (35-47) % MCV (78-100) fl MCH (26-32) pg MCHC (32-36) g/dl RDW (11.5-14.0) % Plt Count (150-450) K/mm3 MPV (6-9.5) fl Segmented Neutrophils (36.0-66.0) % Band Neutrophils (0.0-2.0) % Lymphocytes (Manual) (24-44) % Monocytes (Manual) (0.0-12.0) % Platelet Estimate (NORMAL) RBC Morphology Sodium 141 (137-145) mmol/L Potassium 4.3 (3.5-5.1) mmol/L Chloride 107 (98-107) mmol/L Carbon Dioxide 24 (22-30) mmol/L Anion Gap 14.5 (5-15) MEQ/L BUN 10 (7-17) mg/dL Creatinine 0.75 (0.52-1.04) mg/dL Estimated GFR > 60.0 ML/MIN Glucose 100 (74-106) mg/dL Lactic Acid 0.9 (0.4-2.0) Calcium 9.9 (8.4-10.2) mg/dL Total Bilirubin 0.60 (0.2-1.3) mg/dL AST 25 (14-36) U/L ALT 20 (0-35) U/L Alkaline Phosphatase 111 (38-126) U/L Serum Total Protein 8.4 H (6.3-8.2) g/dL Albumin 4.5 (3.5-5.0) g/dL Amylase 96 (30-110) U/L Lipase 65 (23-300) U/L Urine Color (YELLOW) Urine Appearance (CLEAR) Urine pH (5-6) Ur Specific Gillespie (1.005-1.025) Urine Protein (Negative) Urine Ketones (NEGATIVE) Urine Blood (0-5) Lon/ul Urine Nitrite (NEGATIVE) Urine Bilirubin (NEGATIVE) Urine Urobilinogen (0-1) mg/dL Ur Leukocyte Esterase (NEGATIVE) Urine WBC (Auto) (0-5) /HPF Urine RBC (Auto) (0-2) /HPF U Epithel Cells (Auto) (FEW) /HPF Urine Bacteria (Auto) (NEGATIVE) /HPF Urine Mucus (Auto) (NEGATIVE) /HPF Urine Culture Reflexed (NO) Urine Glucose (NEGATIVE) mg/dL Urine HCG, Qual (Negative) Monoscreen NEGATIVE (Negative) Influenza Type A Ag (NEGATIVE) Influenza Type B Ag (NEGATIVE) RSV (PCR) (Negative) Group A Strep Antibody (NEGATIVE) 03/10/19 Range/Units 11:00 WBC 11.6 H (4.0-10.5) K/mm3 RBC 4.98 (4.1-5.4) M/mm3 Hgb 14.0 (12.0-16.0) gm/dl Hct 43.7 (35-47) % MCV 87.8 (78-100) fl MCH 28.1 (26-32) pg MCHC 32.0 (32-36) g/dl RDW 14.6 H (11.5-14.0) % Plt Count 264 (150-450) K/mm3 MPV 10.1 H (6-9.5) fl Segmented Neutrophils 62 (36.0-66.0) % Band Neutrophils 2 (0.0-2.0) % Lymphocytes (Manual) 33 (24-44) % Monocytes (Manual) 3 (0.0-12.0) % Platelet Estimate NORMAL (NORMAL) RBC Morphology NORMAL Sodium (137-145) mmol/L Potassium (3.5-5.1) mmol/L Chloride (98-107) mmol/L Carbon Dioxide (22-30) mmol/L Anion Gap (5-15) MEQ/L BUN (7-17) mg/dL Creatinine (0.52-1.04) mg/dL Estimated GFR ML/MIN Glucose (74-106) mg/dL Lactic Acid (0.4-2.0) Calcium (8.4-10.2) mg/dL Total Bilirubin (0.2-1.3) mg/dL AST (14-36) U/L ALT (0-35) U/L Alkaline Phosphatase (38-126) U/L Serum Total Protein (6.3-8.2) g/dL Albumin (3.5-5.0) g/dL Amylase (30-110) U/L Lipase (23-300) U/L Urine Color (YELLOW) Urine Appearance (CLEAR) Urine pH (5-6) Ur Specific Gillespie (1.005-1.025) Urine Protein (Negative) Urine Ketones (NEGATIVE) Urine Blood (0-5) Lon/ul Urine Nitrite (NEGATIVE) Urine Bilirubin (NEGATIVE) Urine Urobilinogen (0-1) mg/dL Ur Leukocyte Esterase (NEGATIVE) Urine WBC (Auto) (0-5) /HPF Urine RBC (Auto) (0-2) /HPF U Epithel Cells (Auto) (FEW) /HPF Urine Bacteria (Auto) (NEGATIVE) /HPF Urine Mucus (Auto) (NEGATIVE) /HPF Urine Culture Reflexed (NO) Urine Glucose (NEGATIVE) mg/dL Urine HCG, Qual (Negative) Monoscreen (Negative) Influenza Type A Ag (NEGATIVE) Influenza Type B Ag (NEGATIVE) RSV (PCR) (Negative) Group A Strep Antibody (NEGATIVE) - Progress Progress: improved Air Movement: good Progress Note: 03/10/19 13:13 pt states she has taken keflex in the past with occas nausea. no vomiting and no rash or resp issues when taking it. Blood Culture(s) Obtained: No Antibiotics given: No Counseled pt/family regarding: lab results, diagnosis, need for follow-up - Departure Departure Disposition: Home Clinical Impression: Vomiting and diarrhea, UTI (urinary tract infection) Condition: Stable Critical Care Time: No Referrals: HANNAH AMAYA [Primary Care Provider] - Additional Instructions: drink plenty of clear liquids. tylenol and ibuprofen for pain and fever. follow up with primary doctor for further management Prescriptions: Ondansetron ODT 4 MG [Zofran Odt 4 mg] 4 mg PO Q6H PRN PRN #10 tab.rapdis PRN Reason: Vomiting Cephalexin Mh 500 mg [Keflex 500 mg] 500 mg PO TID #21 capsule
[2019-03-10] MEDS ORDERED: Zofran 4 MG/2 ML VIAL IV ONE (11:00)
[2019-03-10] MEDS ORDERED: Sodium Chloride 0.9% 1000 ML 1,000 ML IV STA ×2 (11:00→12:23)
[2019-03-10] MEDS ORDERED: Zofran 4 MG/2 ML VIAL ONE (11:06)
[2019-03-10] MEDS ORDERED: Sodium Chloride 0.9% 1000 ML 1,000 ML ONE ×2 (11:06→12:37)
[2019-03-10 11:32] LABS: Hematocrit 43.7 % (35-47); Mean Cell Volume 87.8 fl (78-100); Mean Corpuscular Hemoglobin 28.1 pg (26-32); Mean Platelet Volume 10.1 fl (6-9.5); Platelet Count 264 K/mm3 (150-450); Red Blood Count 4.98 M/mm3 (4.1-5.4); Red Cell Distribution Width 14.6 % (11.5-14.0); White Blood Count 11.6 K/mm3 (4.0-10.5)
[2019-03-10 11:43] LABS: ALBUMIN 4.5 g/dL (3.5-5.0); ALKALINE PHOSPHATASE 111 U/L (38-126); AMYLASE 96 U/L (30-110); ANION GAP 14.5 MEQ/L (5-15); BLOOD UREA NITROGEN 10 mg/dL (7-17); CHLORIDE 107 mmol/L (98-107); Calcium 9.9 mg/dL (8.4-10.2); Carbon Dioxide 24 mmol/L (22-30); Creatinine 1 0.75 mg/dL (0.52-1.04); Glucose 100 mg/dL (74-106); LIPASE 65 U/L (23-300); Potassium 4.3 mmol/L (3.5-5.1); SGOT/AST 25 U/L (14-36); SGPT/ALT 20 U/L (0-35); SODIUM 141 mmol/L (137-145); Total Protein 8.4 g/dL (6.3-8.2)
[2019-03-10 11:53] VITALS: O2SAT 100
[2019-03-10 12:08] LABS: Group A Strep NEGATIVE (NEGATIVE)
[2019-03-10 12:14] LABS: INFLUENZA A NEGATIVE (NEGATIVE); INFLUENZA B NEGATIVE (NEGATIVE); RESPIRATORY SYNCTIAL VIRUS NEGATIVE (Negative)
[2019-03-10 12:37] LABS: BAND 2 % (0.0-2.0); Lymphocytes 33 % (24-44); Monocyte 3 % (0.0-12.0); Neutrophils 62 % (36.0-66.0); Platelet Estimate NORMAL (NORMAL); Total Cells Counted 100
[2019-03-10 12:49] VITALS: BP 127/81; PULSE 77
[2019-03-10 12:56] LABS: Appearance SLIGHTLY CLOUDY (CLEAR); Bacteria MODERATE /HPF (NEGATIVE); Bilirubin NEGATIVE (NEGATIVE); Blood NEGATIVE Ery/ul (0-5); Epithelial Cells FEW /HPF (FEW); Glucose NEGATIVE (NEGATIVE); Ketones NEGATIVE (NEGATIVE); Leukocyte Esterase TRACE (NEGATIVE); Mucus SLIGHT /HPF (NEGATIVE); Nitrite NEGATIVE (NEGATIVE); Protein,Urine Dip NEGATIVE (Negative); RBC 0-2 /HPF (0-2); Specific Gravity 1.021 (1.005-1.025); Urobilinogen NEGATIVE mg/dL (0-1); WBC 0-2 /HPF (0-5)
== END 2019-03-10 13:41 | disposition home or self-care (01) ==
LOC: ED 10:44
DX: R11.10 Vomiting, unspecified (principal); R19.7 Diarrhea, unspecified; N39.0 Urinary tract infection, site not specified; R50.9 Fever, unspecified; Z79.899 Other long term (current) drug therapy
CPT/HCPCS: 36000; 36415; 80053; 81001; 82150; 83605; 83690; 84703; 85025; 86308; 87086; 87631; 87651; 96360; 96361; 96374; 99284; J2405

== ENCOUNTER 2019-03-31 17:04 | Emergency (ER) | payer MEDICAID ==
--- NOTE | 2019-03-31 17:27 | ERPHSYRPT ---
- History of Present Illness Source: patient Exam Limitations: no limitations Timing/Duration: week(s) (3), intermittent, worse Cough Quality/Degree: moderate, dry cough Possible Cause: occasional episodes Modifying Factors: Improves With: coughing Associated Symptoms: cough, muscle aches Hx Tetanus, Diphtheria Vaccination/Date Given: Yes Hx Influenza Vaccination/Date Given: No Hx Pneumococcal Vaccination/Date Given: No <JARED ZAPATA - Last Filed: 03/31/19 18:52> <AYLEEN JOHNSON - Last Filed: 03/31/19 20:29> - History of Present Illness Time Seen by Provider: 03/31/19 17:27 Physician History: 23 y/o white female presents with 3 week h/o intermittent coughing, sore throat , n/v/d. pt here on 03/10/19 for similar complaints. at the visit, pt was dx with uti and given an rx for zofran and keflex. sx improved but in the last 3 to 4 days pts sx of weakness, coughing, headache and sore throat and aches all over. pt has multiple drug allergies but states she can take z pack , steroids, hydrocodone cough medicine, and rocephin/keflex. (JARED ZAPATA) Allergies/Adverse Reactions: amitriptyline [From Elavil] Allergy (Verified 03/10/19 11:13) amoxicillin [Amoxicillin] Allergy (Verified 03/10/19 11:13) metronidazole [From Flagyl] Allergy (Verified 03/10/19 11:13) Metronidazole HCl [From Flagyl] Allergy (Verified 03/10/19 11:13) ofloxacin [From Floxin] Allergy (Verified 03/10/19 11:13) Awtabld-Tye-Anm Reductase Inhibitor Allergy (Verified 03/10/19 11:13) caffeine Adverse Reaction (Verified 03/10/19 11:13) codeine Adverse Reaction (Verified 03/10/19 11:13) Home Medications: Famotidine 20 mg [Pepcid 20 MG] 20 mg PO BID 02/25/17 [History] Oxcarbazepine [Trileptal] 1,200 mg PO HS 02/25/17 [History] PANTOPRAZOLE 40 mg Tablet [Protonix 40MG Tablet] 40 mg PO QPM 12/06/17 [ History] Propranolol HCl 40 mg PO BID 02/25/17 [History] Trazodone HCl [Desyrel] 75 mg PO DAILY 02/25/17 [History] Verapamil HCl [Verapamil ER] 240 mg PO DAILY 02/25/17 [History] Fluvoxamine Maleate [Fluvoxamine Maleate ER] 150 mg PO DAILY 10/05/18 [History] Cariprazine HCl [Vraylar] 1.5 mg PO DAILY 03/10/19 [History] Etonogestrel [Nexplanon] 68 mg SQ UD 03/10/19 [History] - Review of Systems Constitutional: Fever, Weakness Eyes: No Symptoms Ears, Nose, & Throat: Throat Pain Respiratory: Cough, No Stridor, No Wheezing Cardiac: No Symptoms Abdominal/Gastrointestinal: No Symptoms, Nausea Genitourinary Symptoms: No Symptoms Musculoskeletal: No Symptoms Skin: No Symptoms Neurological: No Symptoms Psychological: No Symptoms Endocrine: No Symptoms Hematologic/Lymphatic: No Symptoms Immunological/Allergic: No Symptoms All Other Systems: Reviewed and Negative <JARED ZAPATA - Last Filed: 03/31/19 18:52> - Past Medical History Pertinent Past Medical History: Yes Neurological History: No Pertinent History ENT History: No Pertinent History Cardiac History: High Cholesterol, Hypertension Respiratory History: No Pertinent History Endocrine Medical History: No Pertinent History Musculoskeletal History: No Pertinent History GI Medical History: Other History: No Pertinent History Psycho-Social History: Anxiety, Bipolar, Depression Female Reproductive Disorders: No Pertinent History Other Medical History: LUPUS - Past Surgical History Past Surgical History: Yes Neuro Surgical History: No Pertinent History Cardiac: No Pertinent History Respiratory: No Pertinent History Gastrointestinal: Cholecystectomy Genitourinary: No Pertinent History Musculoskeletal: Orthopedic Surgery Female Surgical History: No Pertinent History Other Surgical History: EAR SURG, FOOT SURGERY - Social History Smoking Status: Never smoker Exposure to second hand smoke: No Drug Use: none Patient Lives Alone: No Significant Family History: no pertinent family hx <JARED ZAPATA - Last Filed: 03/31/19 18:52> - Physical Exam General Appearance: mild distress, alert, anxiety, obese Eye Exam: PERRL/EOMI, eyes nml inspection Ears, Nose, Throat Exam: normal ENT inspection, moist mucous membranes, No pharyngeal erythema, No tonsillar exudate Neck Exam: normal inspection, non-tender, supple, full range of motion Respiratory Exam: normal breath sounds, lungs clear, No chest tenderness, No respiratory distress, No accessory muscle use, No rhonchi, No wheezing, No stridor Cardiovascular Exam: regular rate/rhythm, normal heart sounds, normal peripheral pulses Gastrointestinal/Abdomen Exam: soft, normal bowel sounds, No tenderness Pelvic Exam: not done Rectal Exam: not done Back Exam: normal inspection, normal range of motion, No CVA tenderness, No vertebral tenderness Extremity Exam: normal inspection, normal range of motion, No pelvis stable Neurologic Exam: alert, oriented x 3, cooperative, 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 Skin Exam: normal color, warm, dry Lymphatic Exam: No adenopathy SpO2 Interpretation: normal O2 Delivery: Room Air <JARED ZAPATA - Last Filed: 03/31/19 18:52> - Nursing Vital Signs Nursing Vital Signs: Initial Vital Signs Temperature 98.8 F 03/31/19 17:36 Pulse Rate 93 H 03/31/19 17:36 Respiratory Rate 16 03/31/19 17:36 Blood Pressure 132/99 03/31/19 17:36 O2 Sat by Pulse Oximetry 99 03/31/19 17:36 Pain Scale Pain Intensity 5 - Course Nursing assessment & vital signs reviewed: Yes <JARED ZAPATA - Last Filed: 03/31/19 18:52> Ordered Tests: Active Orders 24 hr Category Date Time Status IV Insertion STAT Care 03/31/19 18:35 Active CHEST 1 VIEW (PORTABLE) Stat Exams 03/31/19 19:15 Taken BLOOD CULTURE Stat Lab 03/31/19 19:11 Received HCG,QUALITATIVE URINE Stat Lab 03/31/19 19:55 Completed Lactic Acid Stat Lab 03/31/19 18:35 Ordered UA W/RFX UR CULTURE Stat Lab 03/31/19 19:55 Ordered Medication Summary Discontinued Medications Generic Name Dose Route Start Last Admin Trade Name Freq PRN Reason Stop Dose Admin Sodium Chloride 1,000 mls @ 999 mls/hr 03/31/19 18:35 03/31/19 18:57 Sodium Chloride 0.9% 1000 Ml IV 03/31/19 19:35 999 mls/hr .Q1H1M STA Administration Sodium Chloride Confirm 03/31/19 18:49 Sodium Chloride 0.9% 1000 Ml Administered 03/31/19 18:50 Dose 1,000 mls @ ud .ROUTE .STK-MED ONE Sodium Chloride 1,000 mls @ 999 mls/hr 03/31/19 19:22 03/31/19 20:00 Sodium Chloride 0.9% 1000 Ml IV 03/31/19 20:22 999 mls/hr .Q1H1M STA Administration Sodium Chloride Confirm 03/31/19 19:59 Sodium Chloride 0.9% 1000 Ml Administered 03/31/19 20:00 Dose 1,000 mls @ ud .ROUTE .STK-MED ONE Ondansetron HCl 4 mg 03/31/19 18:35 03/31/19 18:57 Zofran 4 Mg/2 Ml Vial IV 03/31/19 18:36 4 mg STAT STA Administration Ondansetron HCl Confirm 03/31/19 18:49 Zofran 4 Mg/2 Ml Vial Administered 03/31/19 18:50 Dose 4 mg .ROUTE .STK-MED ONE Lab/Rad Data: Laboratory Results 03/31/19 03/31/19 Range/Units 19:55 19:11 Urine HCG, Qual NEGATIVE (Negative) Influenza Type A Ag POSITIVE (NEGATIVE) Influenza Type B Ag NEGATIVE (NEGATIVE) RSV (PCR) NEGATIVE (Negative) Group A Strep Antibody NEGATIVE (NEGATIVE) <JARED ZAPATA - Last Filed: 03/31/19 18:52> - Progress Air Movement: good <AYLEEN JOHNSON - Last Filed: 03/31/19 20:29> - Progress Progress Note: 03/31/19 18:[address] Johnson. he accepts (JARED ZAPATA) 03/31/19 20:27 On reevalutation, patient is feeling improved. negative and influenza A positive. She is out of the tamiflu window. We will not start this today. ( AYLEEN JOHNSON) <JARED ZAPATA - Last Filed: 03/31/19 18:52> - Departure Departure Disposition: Home Critical Care Time: No <AYLEEN JOHNSON - Last Filed: 03/31/19 20:29> - Departure Clinical Impression: Influenza A Condition: Stable Referrals: HANNAH AMAYA [Primary Care Provider] - Instructions: Cough, Adult (DC)
[2019-03-31] MEDS ORDERED: Zofran 4 MG/2 ML VIAL IV STA (18:35)
[2019-03-31] MEDS ORDERED: Sodium Chloride 0.9% 1000 ML 1,000 ML IV STA ×2 (18:35→19:22)
[2019-03-31] MEDS ORDERED: Zofran 4 MG/2 ML VIAL ONE (18:49)
[2019-03-31] MEDS ORDERED: Sodium Chloride 0.9% 1000 ML 1,000 ML ONE ×2 (18:49→19:59)
[2019-03-31 19:47] LABS: INFLUENZA A POSITIVE (NEGATIVE); INFLUENZA B NEGATIVE (NEGATIVE); RESPIRATORY SYNCTIAL VIRUS NEGATIVE (Negative)
[2019-03-31 20:27] LABS: Appearance SLIGHTLY CLOUDY (CLEAR); Bacteria RARE /HPF (NEGATIVE); Bilirubin NEGATIVE (NEGATIVE); Blood NEGATIVE Ery/ul (0-5); Epithelial Cells FEW /HPF (FEW); Glucose NEGATIVE (NEGATIVE); Ketones NEGATIVE (NEGATIVE); Leukocyte Esterase TRACE (NEGATIVE); Mucus SLIGHT /HPF (NEGATIVE); Nitrite NEGATIVE (NEGATIVE); Protein,Urine Dip NEGATIVE (Negative); RBC 0-2 /HPF (0-2); Specific Gravity 1.024 (1.005-1.025); Urobilinogen NEGATIVE mg/dL (0-1); WBC 0-2 /HPF (0-5)
[2019-03-31 21:26] VITALS: BP 105/89; PULSE 87; O2SAT 98
--- NOTE | 2019-04-01 08:40 | XRAY ---
Indication: Fever and cough 3 weeks. Comparison: December 28, 2018. Portable apical lordotic chest again demonstrates normal heart, lungs, and bony thorax.
== END 2019-03-31 21:26 | disposition home or self-care (01) ==
LOC: ED 17:04
DX: J09.X2 Influenza due to identified novel influenza A virus with other respiratory manifestations (principal)
CPT/HCPCS: 36000; 36415; 71045; 81001; 84703; 87040; 87631; 87651; 96360; 96361; 96374; 99284; J2405

== ENCOUNTER 2019-06-17 19:18 | Emergency (ER) | payer MEDICAID ==
[2019-06-17 19:39] VITALS: O2SAT 98
[2019-06-17] MEDS ORDERED: SODIUM SULAMYD EYE DROPS 15 ML OP ONE ×2 (20:04→20:05)
--- NOTE | 2019-06-17 20:16 | ERPHSYRPT ---
- History of Present Illness Time Seen by Provider: 06/17/19 19:51 Source: patient Exam Limitations: no limitations Patient Subjective Stated Complaint: pt states she was diagnosed with bronchitis yesterday, states she has had drainage and pain from her lt eye since yesterday and ahs increased pain today. Triage Nursing Assessment: pt alert and oriented, answers questions approp. pt ambulatory with steady gait noted. respirations nonlabored with occasional nonproductive cough noted. skin pink warm and dry. redness noted to lt alexander with green thick discharge. Physician History: 24 years old presented in the ER with a chief complaint of left eye redness and discharge gradually worsening for the last 3 days. Patient reports foreign body sensation in sensitivity to light but some blurry vision. Patient reports matting of lids and yellow-green discharge. She is recently been seen outpatient in the ER, diagnosed with bronchitis and currently on antibiotics. She was also running fever until this morning and is better now. Timing/Duration: day(s) (3) Location: left eye Severity: moderate Apparent Injury: no Associated Symptoms: pain, burning, itching, sensitivity to light, redness, matting, foreign body sensation, No decreased vision, No blurred vision Visual Assistive Devices: None Chemical Exposure: No Trauma: No Welding Arc/Tanning Bed Exposure: No Allergies/Adverse Reactions: amitriptyline [From Elavil] Allergy (Verified 06/17/19 19:40) amoxicillin [Amoxicillin] Allergy (Verified 06/17/19 19:40) metronidazole [From Flagyl] Allergy (Verified 06/17/19 19:40) Metronidazole HCl [From Flagyl] Allergy (Verified 06/17/19 19:40) ofloxacin [From Floxin] Allergy (Verified 06/17/19 19:40) Aczanfw-Nza-Sct Reductase Inhibitor Allergy (Verified 06/17/19 19:40) caffeine Adverse Reaction (Verified 06/17/19 19:40) codeine Adverse Reaction (Verified 06/17/19 19:40) Home Medications: Famotidine 20 mg [Pepcid 20 MG] 20 mg PO BID 02/25/17 [History] OXcarbazepine [Trileptal] 1,200 mg PO HS 02/25/17 [History] PANTOPRAZOLE 40 mg Tablet [Protonix 40MG Tablet] 40 mg PO QPM 02/25/17 [ History] Propranolol HCl 40 mg PO DAILY 02/25/17 [History] Trazodone HCl [Desyrel] 75 mg PO DAILY 02/25/17 [History] Fluvoxamine Maleate [Fluvoxamine Maleate ER] 150 mg PO DAILY 10/05/18 [History] Cariprazine HCl [Vraylar] 1.5 mg PO DAILY 03/10/19 [History] Etonogestrel [Nexplanon] 68 mg SQ UD 03/10/19 [History] Cephalexin Mh 500 mg [Keflex 500 mg] 500 mg PO QID 06/17/19 [History] Methylprednisolone Packet [Medrol Dosepack] 4 mg PO UD 06/17/19 [History] Hx Tetanus, Diphtheria Vaccination/Date Given: Yes Hx Influenza Vaccination/Date Given: No Hx Pneumococcal Vaccination/Date Given: No Immunizations Up to Date: Yes Travel Risk - International Travel Have you traveled outside of the country in past 3 weeks: No Have you or anyone close to you been diagnosed with or: No Do your reside in a community with a known COVID-19 case?: Yes If Yes where:: [facility] - Coronavirus Screening Has patient experienced Coronavirus symptoms: Yes Symptoms experienced: fever(equal or > 100.4 F), respiratory symptoms ( i.e.[place],shortness of breath) Date of fever onset:: 06/13/19 Date of respiratory symptoms onset:: 06/13/19 - Review of Systems Constitutional: Fever, Chills, Fatigue, Malaise Eyes: Eye Pain, Eye Redness, Itchy, Photophobia, Vision Changes, Foreign Body Sensation Ears, Nose, & Throat: Nose Congestion, Throat Pain Respiratory: Cough Abdominal/Gastrointestinal: No Symptoms Genitourinary Symptoms: No Symptoms Musculoskeletal: No Symptoms Skin: No Symptoms Neurological: No Symptoms Psychological: No Symptoms Endocrine: No Symptoms Hematologic/Lymphatic: No Symptoms Immunological/Allergic: No Symptoms - Past Medical History Pertinent Past Medical History: Yes Neurological History: No Pertinent History ENT History: No Pertinent History Cardiac History: High Cholesterol, Hypertension Respiratory History: No Pertinent History Endocrine Medical History: No Pertinent History Musculoskeletal History: No Pertinent History GI Medical History: Other History: No Pertinent History Psycho-Social History: Anxiety, Bipolar, Depression Female Reproductive Disorders: No Pertinent History Other Medical History: LUPUS - Past Surgical History Past Surgical History: Yes Neuro Surgical History: No Pertinent History Cardiac: No Pertinent History Respiratory: No Pertinent History Gastrointestinal: Cholecystectomy Genitourinary: No Pertinent History Musculoskeletal: Orthopedic Surgery Female Surgical History: No Pertinent History Other Surgical History: EAR SURG, FOOT SURGERY - Social History Smoking Status: Never smoker Exposure to second hand smoke: Yes Drug Use: none Patient Lives Alone: No Significant Family History: no pertinent family hx - Female History Hx Last Menstrual Period: nexplanon- irreg Hx Now: No - Nursing Vital Signs Nursing Vital Signs: Initial Vital Signs Temperature 98.1 F 06/17/19 19:27 Pulse Rate 83 06/17/19 19:27 Respiratory Rate 16 06/17/19 19:27 Blood Pressure 140/75 06/17/19 19:27 O2 Sat by Pulse Oximetry 98 06/17/19 19:27 Pain Scale Pain Intensity 5 - Physical Exam General Appearance: no apparent distress, alert Vision Acuity Degree Evaluation Phase: Corrected Vision Acuity Right Eye: 20/30 Vision Acuity Left Eye: 20/70 Eye Exam: right eye: normal inspection, PERRL, EOMI, left eye: conjunctival hemorrhage, conjunctival inflammation, vision changes, other (Yellowish-green discharge) Ears, Nose, Throat Exam: pharyngeal erythema Neck Exam: normal inspection, non-tender, supple, full range of motion Respiratory Exam: normal breath sounds, lungs clear Cardiovascular Exam: regular rate/rhythm, normal heart sounds Gastrointestinal Exam: soft Extremity Exam: normal inspection Neurologic: alert, oriented x 3, cooperative, bar roller II-XII nml as tested Skin Exam: normal color SpO2 Interpretation: normal SpO2: 98 O2 Delivery: Room Air - Course Nursing assessment & vital signs reviewed: Yes Ordered Tests: Medication Summary Discontinued Medications Generic Name Dose Route Start Last Admin Trade Name Freq PRN Reason Stop Dose Admin Sulfacetamide Sodium 15 ml 06/17/19 20:04 06/17/19 20:12 Sodium Sulamyd Eye Drops 15 Ml OP 06/17/19 20:05 15 ml STAT ONE Administration Sulfacetamide Sodium Confirm 06/17/19 20:05 Sodium Sulamyd Eye Drops 15 Ml Administered 06/17/19 20:06 Dose 15 ml OP .STK-MED ONE - Progress Progress: pain not gone completely Progress Note: 06/17/19 20:1 I believe patient has bacterial6 conjunctivitis. Started on Polytrim eyedrops. Recommended continue with antibiotics and steroids which she is on. She is recommended social distancing, droplet/contact precautions for 14 days and outpatient follow-up. Discussed signs symptoms of worsening needing return to ER which she seems understanding. - Departure Departure Disposition: Home Clinical Impression: Bacterial conjunctivitis of left eye Condition: Stable Critical Care Time: No Referrals: HANNAH AMAYA [Primary Care Provider] - Follow Up with PCP/3 days Instructions: Conjunctivitis ([place]) Additional Instructions: With primary care physician for reevaluation. Keep eyes clean. Frequent wash. Continue with antibiotics orally and eyedrops. Stay at home for 14 days with social distancing, contact and droplet precautions. Return to ER for any worsening.
[2019-06-17 20:41] VITALS: BP 114/81; PULSE 71
== END 2019-06-17 20:31 | disposition home or self-care (01) ==
LOC: ED 19:18
DX: H10.32 Unspecified acute conjunctivitis, left eye (principal); I10 Essential (primary) hypertension; E78.00 Pure hypercholesterolemia, unspecified; F41.9 Anxiety disorder, unspecified; F31.9 Bipolar disorder, unspecified
CPT/HCPCS: 99283; A9270-GY

== ENCOUNTER 2019-09-11 21:41 | Inpatient (IN) | payer MEDICAID ==
[2019-09-11] MEDS ORDERED: Zofran 4 MG/2 ML VIAL IM ONE (22:09)
[2019-09-11] MEDS ORDERED: Zofran 4 MG/2 ML VIAL ONE (22:18)
[2019-09-11 22:28] LABS: Appearance CLOUDY (CLEAR); Bilirubin NEGATIVE (NEGATIVE); Blood NEGATIVE Ery/ul (0-5); Epithelial Cells RARE /HPF (FEW); Glucose NEGATIVE (NEGATIVE); Ketones NEGATIVE (NEGATIVE); Leukocyte Esterase TRACE (NEGATIVE); Mucus SLIGHT /HPF (NEGATIVE); Nitrite NEGATIVE (NEGATIVE); Protein,Urine Dip NEGATIVE (Negative); Specific Gravity 1.019 (1.005-1.025); Urobilinogen NEGATIVE mg/dL (0-1)
[2019-09-11 22:31] LABS: Budding Yeast Few /HPF (NEGATIVE)
--- NOTE | 2019-09-11 23:02 | ERPHSYRPT ---
- History of Present Illness Time Seen by Provider: 09/11/19 21:48 Historian: patient Exam Limitations: no limitations Patient Subjective Stated Complaint: pt states that she was woke up with back pain late night, pt states that the rt side of her back has been in creasing with pain the past couple of days, pt states that she orginially thought she had slept on it wrong, pt states that she has had no relief with tylenol, pt states that pain is dull ache and then sharp, pt states that when pain is severe she vomits, pt states that she has burning with urination Triage Nursing Assessment: pt ambulated into ther er, pt is axo x3, pt c/o rt back pain, pt denies any injury to back, c/o burning with urination, c/o N/V, pain with palpation to rt back, c/o dull pain to lower abdomen, hypertensive, pain 8/10 to rt back Physician History: 24-year-old patient ending to the ED for evaluation of right-sided back pain for the past 4 days Patient states that she was on vacation when her back started hurting, thought it could be musculoskeletal in origin and had tried some Flexeril and ibuprofen which helped some but the pain States that 2 days ago she developed burning with urination-she started taking cranberry juice Rates the back pain is 8/10, remittent sharp pain that increases with movement, no relieving factors, associated with dysuria, denies frequency of urination or hematuria, associated with nausea no vomiting Patient denies fever Patient states that she has an Implanon and denies history of kidney stones At this time she does not want anything for pain but she would like something for vomiting Timing/Duration: day(s) (3) Activities at Onset: none Quality: dullness Abdominal Pain Onset Location: flank Pain Radiation: no radiation Severity of Pain-Max: severe Severity of Pain-Current: moderate Modifying Factors: Improves With: analgesics Associated Symptoms: denies symptoms Previous symptoms: no prior history Allergies/Adverse Reactions: amitriptyline [From Elavil] Allergy (Verified 06/17/19 19:40) amoxicillin [Amoxicillin] Allergy (Verified 06/17/19 19:40) metronidazole [From Flagyl] Allergy (Verified 06/17/19 19:40) Metronidazole HCl [From Flagyl] Allergy (Verified 06/17/19 19:40) ofloxacin [From Floxin] Allergy (Verified 06/17/19 19:40) Fsxqbyv-Qph-Wam Reductase Inhibitor Allergy (Verified 06/17/19 19:40) caffeine Adverse Reaction (Verified 06/17/19 19:40) codeine Adverse Reaction (Verified 06/17/19 19:40) Home Medications: Famotidine 20 mg [Pepcid 20 MG] 20 mg PO BID 02/25/17 [History] OXcarbazepine [Trileptal] 1,200 mg PO HS 02/25/17 [History] PANTOPRAZOLE 40 mg Tablet [Protonix 40MG Tablet] 40 mg PO QPM 02/25/17 [History] Propranolol HCl 40 mg PO DAILY 02/25/17 [History] Trazodone HCl [Desyrel] 75 mg PO DAILY 02/25/17 [History] Fluvoxamine Maleate [Fluvoxamine Maleate ER] 150 mg PO DAILY 10/05/18 [History] Cariprazine HCl [Vraylar] 1.5 mg PO DAILY 03/10/19 [History] Etonogestrel [Nexplanon] 68 mg SQ UD 03/10/19 [History] Cephalexin Mh 500 mg [Keflex 500 mg] 500 mg PO QID 06/17/19 [History] Methylprednisolone Packet [Medrol Dosepack] 4 mg PO UD 06/17/19 [History] Hx Tetanus, Diphtheria Vaccination/Date Given: Yes Hx Influenza Vaccination/Date Given: No Hx Pneumococcal Vaccination/Date Given: No Travel Risk - International Travel Have you traveled outside of the country in past 3 weeks: No - Coronavirus Screening Are you exhibiting any of the following symptoms?: No Close contact with a COVID-19 positive Pt in past 14-21 Days: No - Review of Systems Constitutional: No Symptoms Eyes: No Symptoms Ears, Nose, & Throat: No Symptoms Respiratory: No Symptoms Cardiac: No Symptoms Abdominal/Gastrointestinal: Abdominal Pain, Nausea, No Vomiting, No Diarrhea, No Constipation, No Appetite Changes Genitourinary Symptoms: Dysuria, No Frequency, No Hematuria, No , No Vaginal Bleeding, No Vaginal Discharge Musculoskeletal: No Symptoms Skin: No Symptoms Neurological: No Symptoms Psychological: No Symptoms Endocrine: No Symptoms All Other Systems: Reviewed and Negative - Past Medical History Pertinent Past Medical History: Yes Neurological History: No Pertinent History ENT History: No Pertinent History Cardiac History: High Cholesterol, Hypertension Respiratory History: No Pertinent History Endocrine Medical History: No Pertinent History Musculoskeletal History: No Pertinent History GI Medical History: Other History: No Pertinent History Psycho-Social History: Anxiety, Bipolar, Depression Female Reproductive Disorders: No Pertinent History Other Medical History: LUPUS - Past Surgical History Past Surgical History: Yes Neuro Surgical History: No Pertinent History Cardiac: No Pertinent History Respiratory: No Pertinent History Gastrointestinal: Cholecystectomy Genitourinary: No Pertinent History Musculoskeletal: Orthopedic Surgery Female Surgical History: No Pertinent History Other Surgical History: EAR SURG, FOOT SURGERY - Social History Smoking Status: Never smoker Exposure to second hand smoke: Yes Drug Use: none Patient Lives Alone: No Significant Family History: no pertinent family hx - Female History Hx Now: No (has implanon) - Nursing Vital Signs Nursing Vital Signs: Initial Vital Signs Temperature 98 F 09/11/19 22:26 Pulse Rate 70 09/11/19 22:26 Respiratory Rate 22 09/11/19 22:26 Blood Pressure 176/87 09/11/19 22:26 O2 Sat by Pulse Oximetry 97 09/11/19 22:26 Pain Scale Pain Intensity [Right 8 Posterior Back] Pain Intensity 8 - Physical Exam General Appearance: no apparent distress Eye Exam: PERRL/EOMI, eyes nml inspection Ears, Nose, Throat Exam: normal ENT inspection, TMs normal, pharynx normal Neck Exam: normal inspection, non-tender, supple, full range of motion Respiratory Exam: normal breath sounds Cardiovascular Exam: regular rate/rhythm, normal heart sounds, normal peripheral pulses Gastrointestinal/Abdomen Exam: soft, normal bowel sounds, tenderness (LLQ, suprapubic and RLQ) Back Exam: normal inspection, normal range of motion, No CVA tenderness Extremity Exam: normal inspection, normal range of motion Neurologic Exam: alert, oriented x 3, cooperative, market president II-XII nml as tested Skin Exam: normal color, warm, dry Lymphatic Exam: No adenopathy SpO2 Interpretation: normal SpO2: 97 O2 Delivery: Room Air Ordered Tests: Active Orders 24 hr Category Date Time Status ABDOMEN AND PELVIS W/0 CONTRAS [CT] Stat Exams 09/11/19 22:10 Ordered CBC W DIFF Stat Lab 09/11/19 23:05 Completed CMP Stat Lab 09/11/19 23:05 Completed CULTURE,URINE Stat Lab 09/11/19 22:15 Received HCG QUALITATIVE,SERUM Stat Lab 09/11/19 23:05 Completed LIPASE Stat Lab 09/11/19 23:05 Completed UA W/RFX UR CULTURE Stat Lab 09/11/19 22:15 Completed Medication Summary Discontinued Medications Generic Name Dose Route Start Last Admin Trade Name Hayednq PRN Reason Stop Dose Admin Ondansetron HCl 4 mg 09/11/19 22:09 09/11/19 22:20 Zofran 4 Mg/2 Ml Vial IM 09/11/19 22:10 4 mg STAT ONE Administration Ondansetron HCl Confirm 09/11/19 22:18 Zofran 4 Mg/2 Ml Vial Administered 09/11/19 22:19 Dose 4 mg .ROUTE .STK-MED ONE Lab/Rad Data: Laboratory Result Diagrams 09/11/19 23:05 09/11/19 23:05 Laboratory Results 09/11/19 09/11/19 09/11/19 Range/Units 23:05 23:05 23:05 WBC 15.2 H (4.0-10.5) K/mm3 RBC 4.61 (4.1-5.4) M/mm3 Hgb 13.2 (12.0-16.0) gm/dl Hct 41.3 (35-47) % MCV 89.6 (78-100) fl MCH 28.6 (26-32) pg MCHC 32.0 (32-36) g/dl RDW 14.1 H (11.5-14.0) % Plt Count 254 (150-450) K/mm3 MPV 9.7 (7.5-11.0) fl Gran % 64.2 (36.0-66.0) % Eos # (Auto) 0.17 (0-0.5) Absolute Lymphs (auto) 4.36 (1.0-4.6) Absolute Monos (auto) 0.90 (0.0-1.3) Lymphocytes % 28.6 (24.0-44.0) % Monocytes % 5.9 (0.0-12.0) % Eosinophils % 1.1 (0.00-5.0) % Basophils % 0.2 (0.0-0.4) % Absolute Granulocytes 9.77 H (1.4-6.9) Basophils # 0.03 (0-0.4) Sodium 140 (137-145) mmol/L Potassium 3.8 (3.5-5.1) mmol/L Chloride 105 (98-107) mmol/L Carbon Dioxide 26 (22-30) mmol/L Anion Gap 13.2 (5-15) MEQ/L BUN 13 (7-17) mg/dL Creatinine 0.76 (0.52-1.04) mg/dL Estimated GFR > 60.0 ML/MIN Glucose 91 (74-106) mg/dL Calcium 9.5 (8.4-10.2) mg/dL Total Bilirubin 0.30 (0.2-1.3) mg/dL AST 24 (14-36) U/L ALT 25 (0-35) U/L Alkaline Phosphatase 101 (38-126) U/L Serum Total Protein 7.4 (6.3-8.2) g/dL Albumin 4.1 (3.5-5.0) g/dL Lipase 89 (23-300) U/L Serum , Qual NEGATIVE (Negative) Urine Color (YELLOW) Urine Appearance (CLEAR) Urine pH (5-6) Ur Specific [place] (1.005-1.025) Urine Protein (Negative) Urine Ketones (NEGATIVE) Urine Blood (0-5) Lon/ul Urine Nitrite (NEGATIVE) Urine Bilirubin (NEGATIVE) Urine Urobilinogen (0-1) mg/dL Ur Leukocyte Esterase (NEGATIVE) Urine WBC (Auto) (0-5) /HPF Urine RBC (Auto) (0-2) /HPF U Epithel Cells (Auto) (FEW) /HPF Urine Bacteria (Auto) (NEGATIVE) /HPF Urine Mucus (Auto) (NEGATIVE) /HPF Urine Yeast (Budding) (NEGATIVE) /HPF Urine Culture Reflexed (NO) Urine Glucose (NEGATIVE) mg/dL 09/11/19 Range/Units 22:15 WBC (4.0-10.5) K/mm3 RBC (4.1-5.4) M/mm3 Hgb (12.0-16.0) gm/dl Hct (35-47) % MCV (78-100) fl MCH (26-32) pg MCHC (32-36) g/dl RDW (11.5-14.0) % Plt Count (150-450) K/mm3 MPV (7.5-11.0) fl Gran % (36.0-66.0) % Eos # (Auto) (0-0.5) Absolute Lymphs (auto) (1.0-4.6) Absolute Monos (auto) (0.0-1.3) Lymphocytes % (24.0-44.0) % Monocytes % (0.0-12.0) % Eosinophils % (0.00-5.0) % Basophils % (0.0-0.4) % Absolute Granulocytes (1.4-6.9) Basophils # (0-0.4) Sodium (137-145) mmol/L Potassium (3.5-5.1) mmol/L Chloride (98-107) mmol/L Carbon Dioxide (22-30) mmol/L Anion Gap (5-15) MEQ/L BUN (7-17) mg/dL Creatinine (0.52-1.04) mg/dL Estimated GFR ML/MIN Glucose (74-106) mg/dL Calcium (8.4-10.2) mg/dL Total Bilirubin (0.2-1.3) mg/dL AST (14-36) U/L ALT (0-35) U/L Alkaline Phosphatase (38-126) U/L Serum Total Protein (6.3-8.2) g/dL Albumin (3.5-5.0) g/dL Lipase (23-300) U/L Serum , Qual (Negative) Urine Color YELLOW (YELLOW) Urine Appearance CLOUDY (CLEAR) Urine pH 7.0 (5-6) Ur Specific [place] 1.019 (1.005-1.025) Urine Protein NEGATIVE (Negative) Urine Ketones NEGATIVE (NEGATIVE) Urine Blood NEGATIVE (0-5) Lon/ul Urine Nitrite NEGATIVE (NEGATIVE) Urine Bilirubin NEGATIVE (NEGATIVE) Urine Urobilinogen NEGATIVE (0-1) mg/dL Ur Leukocyte Esterase TRACE (NEGATIVE) Urine WBC (Auto) 6-10 (0-5) /HPF Urine RBC (Auto) NONE (0-2) /HPF U Epithel Cells (Auto) RARE (FEW) /HPF Urine Bacteria (Auto) NONE (NEGATIVE) /HPF Urine Mucus (Auto) SLIGHT (NEGATIVE) /HPF Urine Yeast (Budding) Few (NEGATIVE) /HPF Urine Culture Reflexed YES (NO) Urine Glucose NEGATIVE (NEGATIVE) mg/dL - Progress Progress Note: 09/11/19 23:00 24-year-old patient presenting to the ED for evaluation of right flank pain Seen and evaluated in ED room 10 Vital signs stable on arrival Workup Labs: CBC, CMP, lipase, UA, test Results:CBC reveals leukocytosis with WBC 15.2, all other labs WNL Imaging CT abdomen pelvis witout contrast no renal stones, no diverticulitis, s/p cholecystectomy, no appendicitis Medications given - 4 mg IM zofran 09/12/19 00:25 Discussed labs and imaging with patient, given leukocytosis, abdominal pain, pt. requesting admission d/w who has agreed to take over further care- pt. will be admitted for abdominal pain, leukocytosis, possible UTI given symptom of dysuria Discussed with Dr.: Sandy Will see patient in: hospital (observation) - Departure Departure Disposition: Observation Clinical Impression: Abdominal pain, Leukocytosis, Dysuria Condition: Stable Critical Care Time: No Referrals: HANNAH AMAYA [Primary Care Provider] -
[2019-09-11 23:16] LABS: Absolute Neutrophil Ct (ANC) 9.77 (1.4-6.9); BASOPHIL % 0.2 % (0.0-0.4); Basophil (Absolute #) 0.03 (0-0.4); Eosinophil % 1.1 % (0.00-5.0); Eosinophil (Absolute #) 0.17 (0-0.5); Hematocrit 41.3 % (35-47); Hemoglobin 13.2 gm/dl (12.0-16.0); Lymphocyte (Absolute #) 4.36 (1.0-4.6); Lymphocytes % 28.6 % (24.0-44.0); Mean Cell Volume 89.6 fl (78-100); Mean Corpuscular Hemoglobin 28.6 pg (26-32); Mean Platelet Volume 9.7 fl (7.5-11.0); Monocytes % 5.9 % (0.0-12.0); Neutrophil % 64.2 % (36.0-66.0); Platelet Count 254 K/mm3 (150-450); Red Blood Count 4.61 M/mm3 (4.1-5.4); Red Cell Distribution Width 14.1 % (11.5-14.0); White Blood Count 15.2 K/mm3 (4.0-10.5)
[2019-09-11 23:29] LABS: ALBUMIN 4.1 g/dL (3.5-5.0); ALKALINE PHOSPHATASE 101 U/L (38-126); ANION GAP 13.2 MEQ/L (5-15); BLOOD UREA NITROGEN 13 mg/dL (7-17); CHLORIDE 105 mmol/L (98-107); Calcium 9.5 mg/dL (8.4-10.2); Carbon Dioxide 26 mmol/L (22-30); Creatinine 1 0.76 mg/dL (0.52-1.04); Glucose 91 mg/dL (74-106); LIPASE 89 U/L (23-300); Potassium 3.8 mmol/L (3.5-5.1); SGOT/AST 24 U/L (14-36); SGPT/ALT 25 U/L (0-35); SODIUM 140 mmol/L (137-145); Total Protein 7.4 g/dL (6.3-8.2)
[2019-09-12] MEDS ORDERED: Macrobid 100MG Capsule PO ONE (00:37)
[2019-09-12] MEDS ORDERED: Macrobid 100MG Capsule ONE (00:42)
[2019-09-12 05:13] LABS: Absolute Neutrophil Ct (ANC) 8.53 (1.4-6.9); BASOPHIL % 0.1 % (0.0-0.4); Basophil (Absolute #) 0.02 (0-0.4); Eosinophil % 1.4 % (0.00-5.0); Hematocrit 40.3 % (35-47); Hemoglobin 12.7 gm/dl (12.0-16.0); Lymphocyte (Absolute #) 4.48 (1.0-4.6); Mean Corpuscular Hemoglobin 28.3 pg (26-32); Mean Corpuscular Hgb Concent. 31.5 g/dl (32-36); Monocyte (Absolute #) 0.79 (0.0-1.3); Monocytes % 5.6 % (0.0-12.0); Neutrophil % 60.9 % (36.0-66.0); Platelet Count 235 K/mm3 (150-450); Red Blood Count 4.48 M/mm3 (4.1-5.4)
[2019-09-12 05:42] LABS: ALKALINE PHOSPHATASE 94 U/L (38-126); ANION GAP 13.2 MEQ/L (5-15); BLOOD UREA NITROGEN 13 mg/dL (7-17); CHLORIDE 105 mmol/L (98-107); Calcium 9.2 mg/dL (8.4-10.2); Carbon Dioxide 25 mmol/L (22-30); Creatinine 1 0.77 mg/dL (0.52-1.04); Glucose 112 mg/dL (74-106); Potassium 3.5 mmol/L (3.5-5.1); SGOT/AST 23 U/L (14-36); SGPT/ALT 24 U/L (0-35); SODIUM 139 mmol/L (137-145); Total Protein 7.2 g/dL (6.3-8.2)
--- NOTE | 2019-09-12 09:15 | XRAY ---
Indication: Right flank/back pain. Dysuria, nausea, and emesis. Multiple contiguous axial images obtained through the abdomen and pelvis without contrast as ordered. Comparison: February 25, 2017. Lung bases clear of infiltrate/effusion. Minimal bibasilar fibrosis/scarring and stable tiny left costophrenic angle noncalcified nodule. Heart is not enlarged. Noncontrasted stomach and bowel loops appear nonobstructed. Normal appendix. Mild scattered colonic fecal debris throughout with stable minimal sigmoid diverticulosis and cholecystectomy. New 1.6 cm right ovary cyst. No free fluid/air. Again incidental borderline splenomegaly today measuring 12.4 cm. Remaining liver, pancreas, spleen, adrenal glands, kidneys, ureters, bladder, uterus, and aorta appear unremarkable for noncontrast exam. Osseous structures intact. No ventral or inguinal hernias. Impression: 1. Mild fecal stasis without obstruction. 2. New 1.6 cm right ovary cyst. Pelvic sonogram may yield further information if clinically warranted. 3. Again minimal sigmoid diverticulosis, borderline splenomegaly, and benign left costophrenic angle noncalcified micronodule. Comment: Preliminary interpretation was made by [facility]. No critical discrepancy.
[2019-09-12] MEDS: TORAdol 30 mg Injection IM PRN (09:30)
[2019-09-12] MEDS: ZOFRAN ODT 4 MG PO PRN ×2 (10:16→18:49)
[2019-09-12] MEDS ORDERED: ETONOGESTREL 68 MG SQ SCH (12:45)
[2019-09-12] MEDS ORDERED: MEDICATION INTERVENTION MC SCH ×2 (13:00)
[2019-09-12] MEDS: Pepcid 20 MG PO SCH (13:07)
[2019-09-12] MEDS: Inderal 20 MG PO SCH (13:08)
[2019-09-12] MEDS: Cyclobenzaprine 10 MG PO PRN ×2 (13:11→18:46)
[2019-09-12] MEDS: Trileptal 300 MG Tablet PO SCH (21:56)
[2019-09-12] MEDS: Protonix 40MG Tablet PO SCH ×2 (21:56→21:57)
[2019-09-12] MEDS: DESYREL 50 MG PO SCH (21:58)
[2019-09-12] MEDS ORDERED: OXCARBAZEPINE 1200 MG PO SCH (22:00)
--- NOTE | 2019-09-12 22:12 | PCM.NOTE ---
Date and Time: 09/12/192210 OBJECTIVE DATA Vital Signs: Vital Signs - 24 hr Temp Pulse Resp BP Pulse Ox 09/12/19 20:00 98.4 F 66 20 130/74 96 09/12/19 12:00 99.0 F 74 16 136/73 09/12/19 07:38 98.5 F 77 16 129/75 97 09/12/19 04:00 98 F 74 170/93 97 09/12/19 01:37 98 F 74 170/93 97 09/12/19 01:30 98.4 F 72 18 132/69 98 09/12/19 00:28 97 09/12/19 00:18 74 170/93 100 09/11/19 22:26 98 F 70 22 176/87 97 Pain Assessment - Last Documented Pain Intensity [Right 8 Posterior Back] Pain Intensity 0 Pain Scale Used FLACC Intake and Output: Intake & Output 09/10/19 09/11/19 09/12/19 09/13/19 11:59 11:59 11:59 11:59 Intake Total 340 360 Balance 340 360 Weight 111 kg Lab Results: Lab Results-Last 24 Hours 09/11/19 09/11/19 09/11/19 Range/Units 22:15 23:05 23:05 WBC 15.2 H (4.0-10.5) K/mm3 RBC 4.61 (4.1-5.4) M/mm3 Hgb 13.2 (12.0-16.0) gm/dl Hct 41.3 (35-47) % MCV 89.6 (78-100) fl MCH 28.6 (26-32) pg MCHC 32.0 (32-36) g/dl RDW 14.1 H (11.5-14.0) % Plt Count 254 (150-450) K/mm3 MPV 9.7 (7.5-11.0) fl Gran % 64.2 (36.0-66.0) % Eos # (Auto) 0.17 (0-0.5) Absolute Lymphs (auto) 4.36 (1.0-4.6) Absolute Monos (auto) 0.90 (0.0-1.3) Lymphocytes % 28.6 (24.0-44.0) % Monocytes % 5.9 (0.0-12.0) % Eosinophils % 1.1 (0.00-5.0) % Basophils % 0.2 (0.0-0.4) % Absolute Granulocytes 9.77 H (1.4-6.9) Basophils # 0.03 (0-0.4) Sodium 140 (137-145) mmol/L Potassium 3.8 (3.5-5.1) mmol/L Chloride 105 (98-107) mmol/L Carbon Dioxide 26 (22-30) mmol/L Anion Gap 13.2 (5-15) MEQ/L BUN 13 (7-17) mg/dL Creatinine 0.76 (0.52-1.04) mg/dL Estimated GFR > 60.0 ML/MIN Glucose 91 (74-106) mg/dL Calcium 9.5 (8.4-10.2) mg/dL Total Bilirubin 0.30 (0.2-1.3) mg/dL AST 24 (14-36) U/L ALT 25 (0-35) U/L Alkaline Phosphatase 101 (38-126) U/L Serum Total Protein 7.4 (6.3-8.2) g/dL Albumin 4.1 (3.5-5.0) g/dL Lipase 89 (23-300) U/L Serum , Qual (Negative) Urine Color YELLOW (YELLOW) Urine Appearance CLOUDY (CLEAR) Urine pH 7.0 (5-6) Ur Specific [place] 1.019 (1.005-1.025) Urine Protein NEGATIVE (Negative) Urine Ketones NEGATIVE (NEGATIVE) Urine Blood NEGATIVE (0-5) Lon/ul Urine Nitrite NEGATIVE (NEGATIVE) Urine Bilirubin NEGATIVE (NEGATIVE) Urine Urobilinogen NEGATIVE (0-1) mg/dL Ur Leukocyte Esterase TRACE (NEGATIVE) Urine WBC (Auto) 6-10 (0-5) /HPF Urine RBC (Auto) NONE (0-2) /HPF U Epithel Cells (Auto) RARE (FEW) /HPF Urine Bacteria (Auto) NONE (NEGATIVE) /HPF Urine Mucus (Auto) SLIGHT (NEGATIVE) /HPF Urine Yeast (Budding) Few (NEGATIVE) /HPF Urine Culture Reflexed YES (NO) Urine Glucose NEGATIVE (NEGATIVE) mg/dL 09/11/19 09/12/19 09/12/19 Range/Units 23:05 04:28 04:28 WBC 14.0 H (4.0-10.5) K/mm3 RBC 4.48 (4.1-5.4) M/mm3 Hgb 12.7 (12.0-16.0) gm/dl Hct 40.3 (35-47) % MCV 90.0 (78-100) fl MCH 28.3 (26-32) pg MCHC 31.5 L (32-36) g/dl RDW 14.0 (11.5-14.0) % Plt Count 235 (150-450) K/mm3 MPV 10.0 (7.5-11.0) fl Gran % 60.9 (36.0-66.0) % Eos # (Auto) 0.20 (0-0.5) Absolute Lymphs (auto) 4.48 (1.0-4.6) Absolute Monos (auto) 0.79 (0.0-1.3) Lymphocytes % 32.0 (24.0-44.0) % Monocytes % 5.6 (0.0-12.0) % Eosinophils % 1.4 (0.00-5.0) % Basophils % 0.1 (0.0-0.4) % Absolute Granulocytes 8.53 H (1.4-6.9) Basophils # 0.02 (0-0.4) Sodium 139 (137-145) mmol/L Potassium 3.5 (3.5-5.1) mmol/L Chloride 105 (98-107) mmol/L Carbon Dioxide 25 (22-30) mmol/L Anion Gap 13.2 (5-15) MEQ/L BUN 13 (7-17) mg/dL Creatinine 0.77 (0.52-1.04) mg/dL Estimated GFR > 60.0 ML/MIN Glucose 112 H (74-106) mg/dL Calcium 9.2 (8.4-10.2) mg/dL Total Bilirubin 0.40 (0.2-1.3) mg/dL AST 23 (14-36) U/L ALT 24 (0-35) U/L Alkaline Phosphatase 94 (38-126) U/L Serum Total Protein 7.2 (6.3-8.2) g/dL Albumin 4.0 (3.5-5.0) g/dL Lipase (23-300) U/L Serum , Qual NEGATIVE (Negative) Urine Color (YELLOW) Urine Appearance (CLEAR) Urine pH (5-6) Ur Specific [place] (1.005-1.025) Urine Protein (Negative) Urine Ketones (NEGATIVE) Urine Blood (0-5) Lon/ul Urine Nitrite (NEGATIVE) Urine Bilirubin (NEGATIVE) Urine Urobilinogen (0-1) mg/dL Ur Leukocyte Esterase (NEGATIVE) Urine WBC (Auto) (0-5) /HPF Urine RBC (Auto) (0-2) /HPF U Epithel Cells (Auto) (FEW) /HPF Urine Bacteria (Auto) (NEGATIVE) /HPF Urine Mucus (Auto) (NEGATIVE) /HPF Urine Yeast (Budding) (NEGATIVE) /HPF Urine Culture Reflexed (NO) Urine Glucose (NEGATIVE) mg/dL Radiology Exams: Radiology Procedures Category Date Time Status ABDOMEN AND PELVIS W/0 CONTRAS [CT] Stat Exams 09/11/19 22:10 Completed
[2019-09-13] MEDS: Cyclobenzaprine 10 MG PO PRN (01:14)
[2019-09-13] MEDS: ZOFRAN ODT 4 MG PO PRN ×2 (08:31→17:22)
[2019-09-13] MEDS: TORAdol 30 mg Injection IM PRN (09:55)
[2019-09-13] MEDS: Inderal 20 MG PO SCH (09:55)
[2019-09-13] MEDS: Sodium Chloride 0.9% 1000 ML 1,000 ML IV SCH (09:55)
[2019-09-13] MEDS: Pepcid 20 MG PO SCH (09:55)
[2019-09-13] MEDS ORDERED: CARIPRAZINE HCL 1.5 MG PO SCH (10:00)
[2019-09-13] MEDS ORDERED: NON-FORMULARY ITEM (Propranolol Hcl [Propranolol Hcl] 40 MG) PO SCH (10:00)
[2019-09-13] MEDS ORDERED: FLUVOXAMINE MALEATE 150 MG PO SCH (10:00)
[2019-09-13 10:09] LABS: ALBUMIN 4.1 g/dL (3.5-5.0); ALKALINE PHOSPHATASE 109 U/L (38-126); ANION GAP 9.7 MEQ/L (5-15); BLOOD UREA NITROGEN 15 mg/dL (7-17); CHLORIDE 107 mmol/L (98-107); Calcium 9.3 mg/dL (8.4-10.2); Carbon Dioxide 27 mmol/L (22-30); Creatinine 1 1.07 mg/dL (0.52-1.04); Glucose 89 mg/dL (74-106); Potassium 4.4 mmol/L (3.5-5.1); SGOT/AST 28 U/L (14-36); SGPT/ALT 28 U/L (0-35); SODIUM 140 mmol/L (137-145); Total Protein 7.6 g/dL (6.3-8.2)
[2019-09-13 10:14] LABS: Absolute Neutrophil Ct (ANC) 7.43 (1.4-6.9); BASOPHIL % 0.3 % (0.0-0.4); Basophil (Absolute #) 0.03 (0-0.4); Eosinophil % 1.9 % (0.00-5.0); Eosinophil (Absolute #) 0.22 (0-0.5); Hematocrit 40.8 % (35-47); Hemoglobin 13.1 gm/dl (12.0-16.0); Lymphocyte (Absolute #) 3.09 (1.0-4.6); Lymphocytes % 26.8 % (24.0-44.0); Mean Cell Volume 89.9 fl (78-100); Mean Corpuscular Hemoglobin 28.9 pg (26-32); Mean Corpuscular Hgb Concent. 32.1 g/dl (32-36); Monocyte (Absolute #) 0.74 (0.0-1.3); Monocytes % 6.4 % (0.0-12.0); Neutrophil % 64.6 % (36.0-66.0); Platelet Count 239 K/mm3 (150-450); Red Blood Count 4.54 M/mm3 (4.1-5.4); Red Cell Distribution Width 13.9 % (11.5-14.0); White Blood Count 11.5 K/mm3 (4.0-10.5)
[2019-09-13] MEDS: PATIENT OWN MEDICATION PO SCH ×2 (11:15→11:16)
[2019-09-13] MEDS ORDERED: Cipro 500 MG PO SCH (13:30)
[2019-09-13] MEDS ORDERED: Flagyl 500 MG PO SCH (13:30)
[2019-09-13] MEDS ORDERED: PHARMACY DOSING REQUIRED: VANCOMYCIN IV STA (14:04)
[2019-09-13] MEDS ORDERED: PHARMACY DOSING REQUEST MC ONE (14:06)
[2019-09-13 14:39] LABS: CHLAMYDIA DNA NOT DETECTED (NEGATIVE); GC DNA Probe NOT DETECTED (NEGATIVE)
[2019-09-13] MEDS: NORCO 5/325 MG PO PRN ×2 (14:39→20:36)
[2019-09-13] MEDS: Merrem 1 GM 1 G in Sodium Chloride 100ML MINI-BAG PLUS 100 ML IV SCH ×2 (14:40→21:34)
[2019-09-13] MEDS: VANCOMYCIN 1.5 GRAM/300 ML BAG 1.5 GM/300 ML PIGGYBACK IV SCH (15:32)
[2019-09-13] MEDS ORDERED: VANCOMYCIN 1.5 GRAM/300 ML BAG 1.5 GM/300 ML PIGGYBACK IV SCH (18:00)
[2019-09-13] MEDS: Trileptal 300 MG Tablet PO SCH (21:29)
[2019-09-13] MEDS: DESYREL 50 MG PO SCH (21:30)
[2019-09-13] MEDS: Protonix 40MG Tablet PO SCH (21:32)
--- NOTE | 2019-09-13 22:13 | PCM.NOTE ---
Date and Time: 09/13/192212 Subjective Assessment: 24 yr old female seen this am. Patient reports she continues to have the lower R sided back pain. She reports she continues to have a decrease appetite. She still has nausea. No other episodes of diarrhea. No fevers. Patient did not reports any dysuria today. - Review of Systems Constitutional: No Fever Eyes: No Symptoms Ears, Nose, & Throat: No Symptoms Respiratory: No Cough, No Short Of Breath, No Wheezing Cardiac: No Chest Pain, No Edema Abdominal/Gastrointestinal: Abdominal Pain, Nausea, No Vomiting, No Diarrhea, No Constipation Genitourinary Symptoms: No Dysuria, No Frequency, No Hematuria Musculoskeletal: Back Pain Skin: No Symptoms Neurological: No Headache, No Parasthesia Psychological: Anxiety, Depression, Other (Hx of bipolar), No Alcohol Abuse, No Drug Abuse Objective Exam General Appearance: no apparent distress, obese Neurologic Exam: alert, oriented x 3, 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, 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, normal mood/affect, No disoriented, No confusion, No agitation Skin Exam: normal color, warm, dry, No rash Eye Exam: eyes nml inspection, No scleral icterus Ears, Nose, Throat Exam: moist mucous membranes Neck Exam: normal inspection Respiratory Exam: normal breath sounds, lungs clear, No respiratory distress, No diminished breath sounds, No wheezing Cardiovascular Exam: regular rate/rhythm, normal heart sounds, No murmur, No friction rub, No gallop Gastrointestinal/Abdomen Exam: soft, normal bowel sounds, tenderness (mild), No distention, No guarding, No rebound Extremity Exam: normal inspection, No pedal edema, No swelling Back Exam: other (Tender to palpation R sided lower back/pelvis) OBJECTIVE DATA Vital Signs: Vital Signs - 24 hr Temp Pulse Resp BP Pulse Ox 09/13/19 20:00 98.0 F 68 16 118/58 97 09/13/19 16:00 97.1 F 58 L 16 117/66 96 09/13/19 12:00 98.0 F 56 L 16 117/69 96 09/13/19 07:38 98.3 F 88 16 133/68 95 09/13/19 04:00 99.0 F 75 16 129/60 97 09/13/19 00:00 97.4 F 76 18 108/58 96 Pain Assessment - Last Documented Pain Intensity [Right 8 Posterior Back] Pain Intensity 5 Pain Scale Used 0-10 Pain Scale Intake and Output: Intake & Output 09/11/19 09/12/19 09/13/19 09/14/19 11:59 11:59 11:59 11:59 Intake Total 490 172 9791 Output Total 300 Balance 724 064 9252 Weight 111 kg Lab Results: Lab Results-Last 24 Hours 09/13/19 09/13/19 09/13/19 Range/Units 08:48 09:45 11:19 WBC 11.5 H (4.0-10.5) K/mm3 RBC 4.54 (4.1-5.4) M/mm3 Hgb 13.1 (12.0-16.0) gm/dl Hct 40.8 (35-47) % MCV 89.9 (78-100) fl MCH 28.9 (26-32) pg MCHC 32.1 (32-36) g/dl RDW 13.9 (11.5-14.0) % Plt Count 239 (150-450) K/mm3 MPV 10.0 (7.5-11.0) fl Gran % 64.6 (36.0-66.0) % Eos # (Auto) 0.22 (0-0.5) Absolute Lymphs (auto) 3.09 (1.0-4.6) Absolute Monos (auto) 0.74 (0.0-1.3) Lymphocytes % 26.8 (24.0-44.0) % Monocytes % 6.4 (0.0-12.0) % Eosinophils % 1.9 (0.00-5.0) % Basophils % 0.3 (0.0-0.4) % Absolute Granulocytes 7.43 H (1.4-6.9) Basophils # 0.03 (0-0.4) Sodium 140 (137-145) mmol/L Potassium 4.4 D (3.5-5.1) mmol/L Chloride 107 (98-107) mmol/L Carbon Dioxide 27 (22-30) mmol/L Anion Gap 9.7 (5-15) MEQ/L BUN 15 (7-17) mg/dL Creatinine 1.07 H (0.52-1.04) mg/dL Estimated GFR > 60.0 ML/MIN Glucose 89 (74-106) mg/dL Calcium 9.3 (8.4-10.2) mg/dL Total Bilirubin 0.30 (0.2-1.3) mg/dL AST 28 (14-36) U/L ALT 28 (0-35) U/L Alkaline Phosphatase 109 (38-126) U/L Serum Total Protein 7.6 (6.3-8.2) g/dL Albumin 4.1 (3.5-5.0) g/dL Chlamydia DNA Probe NOT DETECTED (NEGATIVE) N.gonorrhoeae DNA Probe NOT DETECTED (NEGATIVE) Radiology Exams: Radiology Procedures Category Date Time Status ABDOMEN AND PELVIS W/0 CONTRAS [CT] Stat Exams 09/11/19 22:10 Completed Multi-Disciplinary Progress Notes: Multi-Disciplinary Progress Notes 09/13/19 15:49 Case Management Note by Yesy Leiva NO CHANGE IN DC PLANS AT THIS TIME Initialized on 09/13/19 15:49 - END OF NOTE Assessment/Plan (1) Abdominal pain Status: Acute Assessment & Plan: It appears to be slowly improving. She has been eating a PO diet. No diarrhea or vomiting but continues to have nausea. Patient has no fevers. My suspicion for diverticulitis and UTI are low. Will still await culture and treat possible UTI. WBC count trending down. Code(s): R10.9 - UNSPECIFIED ABDOMINAL PAIN (2) Bipolar disorder Status: Acute Assessment & Plan: Will continue routine home meds. Code(s): F31.9 - BIPOLAR DISORDER, UNSPECIFIED (3) Dysuria Status: Acute Assessment & Plan: Patient was not complaining of dysuria this am but continues to have R lower back pain. Will continue to tx for possible UTI Code(s): R30.0 - DYSURIA (4) Leukocytosis Status: Acute Assessment & Plan: Trending down. Multiple reasons for elevated WBC. Patient is on antibiotics for possible UTI. Will continue to trend Code(s): D72.829 - ELEVATED WHITE BLOOD CELL COUNT, UNSPECIFIED (5) Low back pain Status: Acute Assessment & Plan: Still present and is now her main complaint. Patient has pain medication and muscle relaxer. She states it helps but it is still there. Code(s): M54.5 - LOW BACK PAIN (6) Lupus Status: Acute Assessment & Plan: Patient is not on any meds. Plan is to get her an appt with a different rheum that is a better fit for her. Code(s): M32.9 - SYSTEMIC LUPUS ERYTHEMATOSUS, UNSPECIFIED (7) UTI (urinary tract infection) Status: Acute Assessment & Plan: Again suspicion is low for UTI no growth to date on culture but patient symptoms appear to be improving so will continue with current tx plan and follow up on culture. Code(s): N39.0 - URINARY TRACT INFECTION, SITE NOT SPECIFIED
[2019-09-14] MEDS: VANCOMYCIN 1.5 GRAM/300 ML BAG 1.5 GM/300 ML PIGGYBACK IV SCH ×2 (03:06→16:09)
[2019-09-14] MEDS: Merrem 1 GM 1 G in Sodium Chloride 100ML MINI-BAG PLUS 100 ML IV SCH ×3 (06:10→21:20)
[2019-09-14 07:35] LABS: Absolute Neutrophil Ct (ANC) 6.03 (1.4-6.9); BASOPHIL % 0.2 % (0.0-0.4); Basophil (Absolute #) 0.02 (0-0.4); Eosinophil % 2.4 % (0.00-5.0); Eosinophil (Absolute #) 0.26 (0-0.5); Hematocrit 37.2 % (35-47); Hemoglobin 11.9 gm/dl (12.0-16.0); Lymphocytes % 35.3 % (24.0-44.0); Mean Cell Volume 89.9 fl (78-100); Mean Corpuscular Hemoglobin 28.7 pg (26-32); Mean Platelet Volume 9.6 fl (7.5-11.0); Monocyte (Absolute #) 0.65 (0.0-1.3); Neutrophil % 56.1 % (36.0-66.0); Platelet Count 209 K/mm3 (150-450); Red Blood Count 4.14 M/mm3 (4.1-5.4); Red Cell Distribution Width 13.7 % (11.5-14.0); White Blood Count 10.8 K/mm3 (4.0-10.5)
[2019-09-14 07:54] LABS: ALBUMIN 3.3 g/dL (3.5-5.0); ALKALINE PHOSPHATASE 83 U/L (38-126); ANION GAP 8.7 MEQ/L (5-15); BLOOD UREA NITROGEN 12 mg/dL (7-17); CHLORIDE 109 mmol/L (98-107); Calcium 8.4 mg/dL (8.4-10.2); Carbon Dioxide 24 mmol/L (22-30); Creatinine 1 0.78 mg/dL (0.52-1.04); Glucose 90 mg/dL (74-106); Potassium 4.6 mmol/L (3.5-5.1); SGOT/AST 26 U/L (14-36); SGPT/ALT 29 U/L (0-35); SODIUM 137 mmol/L (137-145); Total Protein 6.3 g/dL (6.3-8.2)
[2019-09-14] MEDS: ZOFRAN ODT 4 MG PO PRN ×3 (09:38→21:19)
[2019-09-14] MEDS: NORCO 5/325 MG PO PRN ×2 (09:39→17:15)
[2019-09-14] MEDS: Pepcid 20 MG PO SCH (09:41)
[2019-09-14] MEDS: Inderal 20 MG PO SCH (09:41)
[2019-09-14] MEDS: PATIENT OWN MEDICATION PO SCH ×2 (09:42→09:43)
[2019-09-14] MEDS: Sodium Chloride 0.9% 1000 ML 1,000 ML IV SCH (10:54)
[2019-09-14] MEDS ORDERED: Zofran 4 MG/2 ML VIAL IV PRN (11:35)
[2019-09-14] MEDS ORDERED: Neurontin 100 MG PO ONE (11:45)
[2019-09-14] MEDS: DESYREL 50 MG PO SCH (23:59)
[2019-09-15] MEDS: Trileptal 300 MG Tablet PO SCH ×2 (00:01→21:41)
[2019-09-15] MEDS: Protonix 40MG Tablet PO SCH ×2 (00:01→21:40)
[2019-09-15] MEDS: Cyclobenzaprine 10 MG PO PRN (00:01)
[2019-09-15] MEDS: Sodium Chloride 0.9% 1000 ML 1,000 ML IV SCH ×2 (01:09→14:27)
[2019-09-15] MEDS: VANCOMYCIN 1.5 GRAM/300 ML BAG 1.5 GM/300 ML PIGGYBACK IV SCH ×2 (04:48→15:36)
[2019-09-15] MEDS: Merrem 1 GM 1 G in Sodium Chloride 100ML MINI-BAG PLUS 100 ML IV SCH ×3 (07:02→21:30)
[2019-09-15] MEDS: Inderal 20 MG PO SCH (08:30)
[2019-09-15] MEDS: Pepcid 20 MG PO SCH (08:30)
[2019-09-15] MEDS: PATIENT OWN MEDICATION PO SCH ×2 (08:32)
[2019-09-15] MEDS: NORCO 5/325 MG PO PRN (08:37)
[2019-09-15] MEDS: ZOFRAN ODT 4 MG PO PRN ×4 (08:37→21:39)
--- NOTE | 2019-09-15 15:06 | XRAY ---
Indication: Right back pain. Comparison: None 2 view abdomen nonacute and nonobstructed with mild diffuse scattered colonic fecal debris, tiny right pelvic phlebolith, and cholecystectomy clips. Remaining solid organs and osseous structures unremarkable with incidental minimal levoscoliosis.
[2019-09-15] MEDS: MOTRIN 400 MG PO PRN ×2 (15:10→23:37)
[2019-09-15] MEDS ORDERED: Colace 100 MG ONE (15:35)
[2019-09-15] MEDS: Colace 100 MG PO SCH ×2 (15:36→21:39)
[2019-09-15] MEDS: Neurontin 100 MG PO SCH ×2 (16:21→21:40)
--- NOTE | 2019-09-15 20:01 | PCM.HP ---
History of Present Illness - Chief Complaint Chief Complaint: Abdominal pain Date: 09/12/19 History of Present Illness: is a 24 year old female seen and examined following ER admission for UTI and flank pain. Patient presented to ED for evaluation of right-sided back pain for the past 4 days. ER doctor reported that patient was on vacation when her back started hurting, thought it could be musculoskeletal in origin and had tried some Flexeril and ibuprofen which helped some but the pain got worse. States that 2 days ago she developed burning with urination-she started taking cranberry juice. Rates the back pain is 8/10, remittent sharp pain that increa ses with movement, no relieving factors, associated with dysuria, denies frequency of urination or hematuria, associated with nausea no vomiting Patient denies fever. Patient states that she has an Implanon and denies history of kidney stones. Patient does have a reported hx of lupus and patient's mother was wondering if this could be a flare. She was on medication for lupus in the past but it was causing some negative side effects and she has not followed up with her rheum doctor. Patient reports she did have two episodes of diarrhea today. She continues to have nausea and decreased appetite but no vomiting. Does not have GB and has not noticed increased pain with eating certain foods. She has constant pain and then episodes of sharp pain. Patient denies diagnosis of endometriosis but mother reports that it does run in the family. - Review of Systems Constitutional: No Fever, No Chills Eyes: No Symptoms Ears, Nose, & Throat: No Symptoms Respiratory: No Cough, No Short Of Breath, No Wheezing Cardiac: No Chest Pain, No Edema, No Palpitations Abdominal/Gastrointestinal: Abdominal Pain, Nausea, Diarrhea, Appetite Changes, No Vomiting, No Constipation, No Hematemesis, No Hematochezia, No Melena Genitourinary Symptoms: Dysuria, Flank Pain, No Frequency, No Hematuria, No Incontinence, No Vaginal Discharge Musculoskeletal: Back Pain, Other (Hx of lupus), No Fall, No Injury Neurological: No Dizziness, No Headache, No Parasthesia Psychological: Anxiety, Depression, No Alcohol Abuse, No Drug Abuse, No Suicidal Ideations, No Homicidal Ideations Endocrine: No Polyuria, No Polydipsia Hematologic/Lymphatic: No Anemia Medications & Allergies Home Medications: Home Medication List Famotidine 20 mg [Pepcid 20 MG] 20 mg PO DAILY 02/25/17 [History Confirmed 09/18/19] OXcarbazepine [Trileptal] 1,200 mg PO HS 02/25/17 [History Confirmed 09/18/19] PANTOPRAZOLE 40 mg Tablet [Protonix 40MG Tablet] 40 mg PO QPM 02/25/17 [History Confirmed 09/18/19] Propranolol HCl 40 mg PO DAILY 02/25/17 [History Confirmed 09/18/19] Trazodone HCl [Desyrel] 75 mg PO QHS 02/25/17 [History Confirmed 09/18/19] Fluvoxamine Maleate [Fluvoxamine Maleate ER] 150 mg PO DAILY 10/05/18 [History Confirmed 09/18/19] Cariprazine HCl [Vraylar] 1.5 mg PO DAILY 03/10/19 [History Confirmed 09/18/19] Etonogestrel [Nexplanon] 68 mg SQ UD 03/10/19 [History Confirmed 09/18/19] Docusate Sodium 100 mg [Colace 100 MG] 100 mg PO DAILY #30 cap 09/16/19 [Rx Confirmed 09/18/19] Gabapentin 200 mg PO TID 30 Days #180 capsule 09/16/19 [Rx Confirmed 09/18/19] Hydrocodone/APAP 5-325 Tab^^^ [[place] 5-325 Tablet^^^] 1 each PO Q6HPRN PRN 7 Days #6 tablet MDD 2 09/16/19 [Rx Confirmed 09/18/19] Ibuprofen 800 mg PO Q8HPRN PRN 10 Days #30 tablet 09/16/19 [Rx Confirmed 09/18/19] Ondansetron ODT 4 MG [Zofran Odt 4 mg] 4 mg PO Q6H PRN PRN #16 tab.rapdis 09/16/19 [Rx Confirmed 09/18/19] Promethazine HCl 25 mg [Phenergan 25 mg] 25 mg PO Q8H PRN PRN #10 tablet 09/18/19 [Rx] Allergies/Adverse Reactions: Allergies Allergy/AdvReac Type Severity Reaction Status Date / Time amitriptyline [From [facility]] Allergy Verified 09/18/19 18:46 amoxicillin [Amoxicillin] Allergy Verified 09/18/19 18:46 metronidazole [From Flagyl] Allergy Verified 09/18/19 18:46 Metronidazole HCl Allergy Verified 09/18/19 18:46 [From Flagyl] ofloxacin [From Floxin] Allergy Verified 09/18/19 18:46 Qrqthuo-Thy-Cbb Reductase Allergy Verified 09/18/19 18:46 Inhibitor caffeine AdvReac Verified 09/18/19 18:46 codeine AdvReac Verified 09/18/19 18:46 - Past Medical History Past Medical History: Yes Neurological History: No Pertinent History ENT History: No Pertinent History Cardiac History: High Cholesterol, Hypertension Respiratory History: No Pertinent History Endocrine Medical History: No Pertinent History Musculoskelatal History: No Pertinent History GI Medical History: Other History: No Pertinent History Pyscho-Social History: Anxiety, Bipolar, Depression Reproductive Disorders: No Pertinent History Comment: LUPUS - Female History Are you now?: No (has implanon) - Past Surgical History Past Surgical History: Yes Neuro Surgical History: No Pertinent History Cardiac History: No Pertinent History Respiratory Surgery: No Pertinent History GI Surgical History: Cholecystectomy Genitourinary Surgical Hx: No Pertinent History Musculskeletal Surgical Hx: Orthopedic Surgery Female Surgical History: No Pertinent History Other Surgical History: EAR SURG, FOOT SURGERY - Social History Smoking Status: Never smoker Exposure to second hand smoke: No Alcohol: Occasionally Drug Use: none Significant Family History: no pertinent family hx - Physical Exam Vital Signs: Vital Signs - 24 hr Temp Pulse Resp BP Pulse Ox 09/15/19 19:35 98.0 F 70 20 103/51 97 09/15/19 16:00 97.6 F 65 16 118/61 98 09/15/19 12:00 98.6 F 63 16 121/58 94 L 09/15/19 07:37 98.1 F 85 16 126/75 98 09/15/19 04:00 98.6 F 79 20 112/59 99 09/15/19 00:00 98.5 F 82 18 121/68 98 General Appearance: mild distress, anxiety, obese Neurologic Exam: alert, oriented x 3, 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, 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, No disoriented, No confusion, No agitation Eye Exam: eyes nml inspection, No scleral icterus Ears, Nose, Throat Exam: moist mucous membranes Neck Exam: normal inspection Respiratory Exam: normal breath sounds, lungs clear, No chest tenderness, No respiratory distress, No diminished breath sounds, No wheezing Cardiovascular Exam: regular rate/rhythm, normal heart sounds, No murmur, No friction rub, No gallop Gastrointestinal/Abdomen Exam: soft, normal bowel sounds, tenderness, No distention, No mass, No guarding, No rebound Pelvic Exam: not done Rectal Exam: not done Back Exam: other (Patient was extremely tender R side gluteal muscle extremely tender with palpation), No CVA tenderness (her pain appears to lower down) Extremity Exam: normal inspection, normal range of motion, No pedal edema, No swelling, No tenderness Skin Exam: normal color, warm, dry, No rash Results - Labs Lab/Micro Results: Lab Results-Last 24 Hours 09/14/19 09/15/19 Range/Units 07:15 03:55 C-React Prot High Sens 8.77 H (0.00-3.00) mg/L Vancomycin Trough 11.30 (10-20) ug/mL Microbiology 09/11/19 22:15 Urine Culture - Final Urine, Void NO GROWTH - Radiology Impressions Radiology Exams & Impressions: Radiology Procedures Category Date Time Status ABDOMEN 2 VIEW Urgent Exams 09/15/19 14:53 Completed Assessment/Plan (1) UTI (urinary tract infection) Status: Acute Assessment & Plan: Patient was initially admitted for abdominal pain leukocytosis and possible UTI. Patient was started on antibiotics. Her UA was fairly benign but will wait until culture results are available. Her WBC has already trended down Code(s): N39.0 - URINARY TRACT INFECTION, SITE NOT SPECIFIED (2) Low back pain Status: Acute Assessment & Plan: Patient has R sided low back pain. Not really CVA as pain is much lower. Pain could be related to possible UTI, diverticulitis, PID, endometriosis or MSK. Patient has symptoms related to all of these. Will get magda/chlamy urine test. Will get ESR and CRP. Will continuing treating for UTI and will consider starting antibiotics for diverticulitis. Patient is getting muscle relaxer which helps some and narcotic pain medication as well. Code(s): M54.5 - LOW BACK PAIN (3) Lupus Status: Acute Assessment & Plan: Self reported hx of lupus however it appears to be untreated. This could be MSK symptom related to lupus flare. Patient was on medication for lupus but had some neg side effects. She has not follow up with rheum Code(s): M32.9 - SYSTEMIC LUPUS ERYTHEMATOSUS, UNSPECIFIED (4) Bipolar disorder Status: Acute Assessment & Plan: Will continue routine meds Code(s): F31.9 - BIPOLAR DISORDER, UNSPECIFIED (5) Abdominal pain Status: Acute Assessment & Plan: Patient has R sided lower back pain that radiates to her abdomen. No suprapubic tenderness on exam. Patient has had nausea and x2 episodes of diarrhea. Patient is already on medication for GERD. She is also getting pain medication and zofran for nausea. She was getting toradol but she didnt feel that it was helping her much. No kidney stone noted on imaging no diverticulitis or diverticulosis noted on imaging Code(s): R10.9 - UNSPECIFIED ABDOMINAL PAIN (6) Leukocytosis Status: Acute Assessment & Plan: Improving no specific cause for leukocytosis. Patient is being treated for UTI so will continue at this time. Code(s): D72.829 - ELEVATED WHITE BLOOD CELL COUNT, UNSPECIFIED
--- NOTE | 2019-09-15 20:02 | PCM.NOTE ---
Date and Time: 09/15/192001 Subjective Assessment: Patient reports some improvement with her back and her abdominal pain. She reports that the gabapentin helps take the edge off. She still has not had a BM yet. We discussed doing mag citrate. She still reports decreased appetite but attributes it to her constipation. Patient did not have any other concerns at this time. - Review of Systems Constitutional: No Symptoms Eyes: No Symptoms Ears, Nose, & Throat: No Symptoms Respiratory: No Symptoms Cardiac: No Symptoms Abdominal/Gastrointestinal: Abdominal Pain, Nausea, Constipation, No Vomiting, No Diarrhea Genitourinary Symptoms: No Symptoms Musculoskeletal: Back Pain Skin: No Symptoms Neurological: No Symptoms Psychological: Anxiety, Depression Objective Exam General Appearance: no apparent distress, anxiety, obese Neurologic Exam: alert, oriented x 3, cooperative, No disoriented, No confusion, No agitation, No depressed mood/affect Skin Exam: normal color, warm, dry, No rash Eye Exam: eyes nml inspection, No scleral icterus Ears, Nose, Throat Exam: moist mucous membranes Respiratory Exam: normal breath sounds, lungs clear, No respiratory distress, No diminished breath sounds Cardiovascular Exam: regular rate/rhythm, normal heart sounds, No murmur, No friction rub, No gallop Gastrointestinal/Abdomen Exam: soft, normal bowel sounds, tenderness (mild tenderness with palpation mainly R sided), No distention, No mass, No guarding, No rebound Extremity Exam: normal inspection, No pedal edema, No swelling Back Exam: other (Low back/pelvic pain R sided gluteal muscles) Pelvic Exam: deferred Rectal Exam: deferred OBJECTIVE DATA Vital Signs: Vital Signs - 24 hr Temp Pulse Resp BP Pulse Ox 09/15/19 19:35 98.0 F 70 20 103/51 97 09/15/19 16:00 97.6 F 65 16 118/61 98 09/15/19 12:00 98.6 F 63 16 121/58 94 L 09/15/19 07:37 98.1 F 85 16 126/75 98 09/15/19 04:00 98.6 F 79 20 112/59 99 09/15/19 00:00 98.5 F 82 18 121/68 98 Pain Assessment - Last Documented Pain Intensity [Right 8 Posterior Back] Pain Intensity 4 Pain Scale Used 0-10 Pain Scale Intake and Output: Intake & Output 09/13/19 09/14/19 09/15/1920 11:59 11:59 11:59 11:59 Intake Total 960 4654 5072 720 Output Total 800 1441 Balance 960 1644 3631 720 Weight 115.3 kg 115.3 kg Lab Results: Lab Results-Last 24 Hours 09/14/19 09/15/19 Range/Units 07:15 03:55 C-React Prot High Sens 8.77 H (0.00-3.00) mg/L Vancomycin Trough 11.30 (10-20) ug/mL Radiology Exams: Radiology Procedures Category Date Time Status ABDOMEN 2 VIEW Urgent Exams 09/15/19 14:53 Completed Multi-Disciplinary Progress Notes: Multi-Disciplinary Progress Notes 09/15/19 11:50 Case Management Note by Yesy Leiva PATIENT CONTINUES TO DENY ANY NEEDS REGARDING DC AT THIS TIME Initialized on 09/15/19 11:50 - END OF NOTE Assessment/Plan (1) Abdominal pain Status: Acute Assessment & Plan: UTI culture was neg, patient did not have any fevers or diarrhea to indicate the presence of diverticulitis. Patient is doing fair on pain meds. She continues to tolerate PO diet. Patient continues to have constipation. Will add mag citrate if she does not have a BM. Plan for DC tomorrow. If patient has worsening symptoms will have her follow up with GI specialist. Code(s): R10.9 - UNSPECIFIED ABDOMINAL PAIN (2) Bipolar disorder Status: Acute Assessment & Plan: Routine home meds Code(s): F31.9 - BIPOLAR DISORDER, UNSPECIFIED (3) Dysuria Status: Acute Assessment & Plan: Resolved and culture did not indicate presence of UTI Code(s): R30.0 - DYSURIA (4) Leukocytosis Status: Acute Assessment & Plan: Continues to trend down. Will continue to monitor Code(s): D72.829 - ELEVATED WHITE BLOOD CELL COUNT, UNSPECIFIED (5) Low back pain Status: Acute Assessment & Plan: R sided low back pain tender to palpation but is improved. Will plan for DC tomorrow. Patient was transitioned to ibuprofen and gabapentin with prn norco if pain gets worse Code(s): M54.5 - LOW BACK PAIN (6) Lupus Status: Acute Assessment & Plan: Patient is going to establish with new rheum. Hopefully she will get on medications that can help her. Code(s): M32.9 - SYSTEMIC LUPUS ERYTHEMATOSUS, UNSPECIFIED (7) UTI (urinary tract infection) Status: Acute Assessment & Plan: Culture was neg. Patient will not require any more antibiotics. Code(s): N39.0 - URINARY TRACT INFECTION, SITE NOT SPECIFIED
--- NOTE | 2019-09-15 20:02 | PCM.NOTE ---
Date and Time: 09/14/192001 Subjective Assessment: Patient seen and examined this morning. Again she reports minimal improvement with her back pain. She reports she still has a decreased appetite. She continues to have nausea. She has developed some constipation likely due to the pain medication. She has no other reported concerns. - Review of Systems Constitutional: No Symptoms Eyes: No Symptoms Ears, Nose, & Throat: No Symptoms Respiratory: No Symptoms Cardiac: No Symptoms Abdominal/Gastrointestinal: Abdominal Pain, Nausea, Constipation, No Vomiting, No Diarrhea Genitourinary Symptoms: No Dysuria Musculoskeletal: Back Pain Skin: No Symptoms Neurological: No Symptoms Psychological: Anxiety, Depression OBJECTIVE DATA Vital Signs: Vital Signs - 24 hr Temp Pulse Resp BP Pulse Ox 09/15/19 19:35 98.0 F 70 20 103/51 97 09/15/19 16:00 97.6 F 65 16 118/61 98 09/15/19 12:00 98.6 F 63 16 121/58 94 L 09/15/19 07:37 98.1 F 85 16 126/75 98 09/15/19 04:00 98.6 F 79 20 112/59 99 09/15/19 00:00 98.5 F 82 18 121/68 98 Pain Assessment - Last Documented Pain Intensity [Right 8 Posterior Back] Pain Intensity 4 Pain Scale Used 0-10 Pain Scale Intake and Output: Intake & Output 09/13/19 09/14/19 09/15/19 09/16/19 11:59 11:59 11:59 11:59 Intake Total 960 2444 5072 720 Output Total 800 1441 Balance 960 1644 3631 720 Weight 115.3 kg 115.3 kg Lab Results: Lab Results-Last 24 Hours 09/14/19 09/15/19 Range/Units 07:15 03:55 C-React Prot High Sens 8.77 H (0.00-3.00) mg/L Vancomycin Trough 11.30 (10-20) ug/mL Radiology Exams: Radiology Procedures Category Date Time Status ABDOMEN 2 VIEW Urgent Exams 09/15/19 14:53 Completed Multi-Disciplinary Progress Notes: Multi-Disciplinary Progress Notes 09/15/19 11:50 Case Management Note by Yesy Leiva PATIENT CONTINUES TO DENY ANY NEEDS REGARDING DC AT THIS TIME Initialized on 09/15/19 11:50 - END OF NOTE Assessment/Plan (1) Abdominal pain Status: Acute Assessment & Plan: Still present but slightly improved. Patient reports decreased appetite was well but staff is reporting patient is eating most of her meal items but not completely. Patient is still afebrile. She does report constipation now. Will start on stool softener. She will continue with current pain medication. Code(s): R10.9 - UNSPECIFIED ABDOMINAL PAIN (2) Dysuria Status: Acute Assessment & Plan: Patient is no longer complaining of dysuria. She is still on antibiotics waiting for final culture results. Code(s): R30.0 - DYSURIA (3) Leukocytosis Status: Acute Assessment & Plan: Still trending down. Will continue with our current management of her other problems as this is resolving. Patient is afebrile Code(s): D72.829 - ELEVATED WHITE BLOOD CELL COUNT, UNSPECIFIED (4) Low back pain Status: Acute Assessment & Plan: This remains patient's main complaint. Will continue with pain medication. She states it is slightly improved but still present.Will consider adding additional meds like gabapentin for her back pain to see if she also has some neuropathy Code(s): M54.5 - LOW BACK PAIN (5) Lupus Status: Acute Code(s): M32.9 - SYSTEMIC LUPUS ERYTHEMATOSUS, UNSPECIFIED (6) UTI (urinary tract infection) Status: Acute Assessment & Plan: culture is still negative. We will plan for discontinuation of antibiotics. Code(s): N39.0 - URINARY TRACT INFECTION, SITE NOT SPECIFIED
[2019-09-15] MEDS: DESYREL 50 MG PO SCH (21:39)
[2019-09-15] MEDS ORDERED: Colace 100 MG PO SCH (22:00)
[2019-09-16] MEDS: Sodium Chloride 0.9% 1000 ML 1,000 ML IV SCH (04:23)
[2019-09-16] MEDS: VANCOMYCIN 1.5 GRAM/300 ML BAG 1.5 GM/300 ML PIGGYBACK IV SCH ×2 (04:23→17:17)
[2019-09-16] MEDS: Merrem 1 GM 1 G in Sodium Chloride 100ML MINI-BAG PLUS 100 ML IV SCH ×2 (06:43→17:16)
[2019-09-16] MEDS: ZOFRAN ODT 4 MG PO PRN ×2 (08:25→12:27)
[2019-09-16] MEDS: NORCO 5/325 MG PO PRN (08:26)
[2019-09-16] MEDS: Colace 100 MG PO SCH (08:28)
[2019-09-16] MEDS ORDERED: CITROMA 296 ML PO ONE (09:17)
[2019-09-16] MEDS: PATIENT OWN MEDICATION PO SCH (09:36)
[2019-09-16] MEDS: Pepcid 20 MG PO SCH (09:37)
[2019-09-16] MEDS: Neurontin 100 MG PO SCH ×2 (09:37→15:40)
[2019-09-16] MEDS: Inderal 20 MG PO SCH (09:37)
--- NOTE | 2019-09-16 10:45 | PCM.DS ---
Discharge Summary Date of Admission: 09/13/19 15:00 Date of Discharge: 09/16/2019 Admitting Physician: AVELINA LEUNG Primary Care Provider: HANNAH AMAYA Allergies Allergies amitriptyline [From Elavil] Allergy (Verified 09/18/19 18:46) PT STATES MAKES HER GO "CRAZY AND WENT TO PSYCH DENT" amoxicillin [Amoxicillin] Allergy (Verified 09/18/19 18:46) metronidazole [From Flagyl] Allergy (Verified 09/18/19 18:46) Metronidazole HCl [From Flagyl] Allergy (Verified 09/18/19 18:46) ofloxacin [From Floxin] Allergy (Verified 09/18/19 18:46) Knhcyys-Tff-Gme Reductase Inhibitor Allergy (Verified 09/18/19 18:46) caffeine Adverse Reaction (Verified 09/18/19 18:46) codeine Adverse Reaction (Verified 09/18/19 18:46) Hospital Summary - Hospital Course Hospital Course: is a 24 year old female seen and examined following ER admission for UTI and flank pain. Patient presented to ED for evaluation of right-sided back pain for the past 4 days. ER doctor reported that patient was on vacation when her back started hurting, thought it could be musculoskeletal in origin and had tried some Flexeril and ibuprofen which helped some but the pain got worse. States that 2 days ago she developed burning with urination-she started taking cranberry juice. Rates the back pain is 8/10, remittent sharp pain that increases with movement, no relieving factors, associated with dysuria, denies frequency of urination or hematuria, associated with nausea no vomiting Patient denies fever. Patient states that she has an Implanon and denies history of kidney stones. Patient was admitted to inpatient. She continued to have R sided low back pain but not true flank pain. She had a UA with culture that was neg. She had gotten antibiotics for this. Patient was also initially treated for possible diverticulitis as the cause for her abdominal pain but those were also discontinued as patient didnt have symptoms to support this diagnosis. She was given narcotic pain medication for her R sided low back pain. It appeared to be more MSK. Patient also mentioned she has untreated lupus. Patient had elevated reactive markers. Her WBC was initially elevated but trended down. She was tolerating PO diet even though her appetite was still decreased and she was still have nausea. Those symptoms appeared to improve. She was given ibuprofen and gabapentin in addition to norco for her back pain and those medications seemed to help. She required stool softeners and mag citrate and finally had a BM which again alleviated some of her abdomen pain. Patient was stable enough that she could go home and follow up with PCP and rheum. - Vitals & Intake/Output Vital Signs: Vital Signs Temperature 97.8 F 09/16/19 08:00 Pulse Rate 85 09/16/19 08:00 Respiratory Rate 18 09/16/19 08:00 Blood Pressure 113/59 09/16/19 08:00 O2 Sat by Pulse Oximetry 96 09/16/19 08:00 Intake & Output: Intake & Output 09/13/19 09/14/19 09/15/19 09/16/19 11:59 11:59 11:59 11:59 Intake Total 960 2444 5072 3340 Output Total 800 1441 1000 Balance 960 1644 3631 2340 Weight 115.3 kg 115.5 kg - Lab Result Diagrams: 09/14/19 07:15 09/14/19 07:15 Lab Results-Last 24 Hrs: Lab Results-Last 24 Hours 09/14/19 Range/Units 07:15 C-React Prot High Sens 8.77 H (0.00-3.00) mg/L Micro Results-Entire Visit: Microbiology 09/11/19 22:15 Urine Culture - Final Urine, Void NO GROWTH - Radiology Exams Ordered Rad Exams-Entire Visit: Radiology Procedures Category Date Time Status ABDOMEN 2 VIEW Urgent Exams 09/15/19 14:53 Completed Discharge Exam General Appearance: no apparent distress, anxiety, obese Neurologic Exam: alert, oriented x 3, 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, 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, normal mood/affect, nml station & gait, No disoriented, No confusion, No agitation Eye Exam: eyes nml inspection, No scleral icterus Ears, Nose, Throat Exam: moist mucous membranes Neck Exam: normal inspection Respiratory Exam: normal breath sounds, lungs clear, No respiratory distress, No diminished breath sounds, No wheezing Cardiovascular Exam: regular rate/rhythm, normal heart sounds, No edema Gastrointestinal/Abdomen Exam: soft, normal bowel sounds, No tenderness, No distention, No mass, No guarding, No rebound Pelvic Exam: deferred Rectal Exam: deferred Back Exam: other (R lower back/pelvic pain with palpation) Extremity Exam: normal inspection Skin Exam: normal color, warm, dry, No rash Final Diagnosis/Problem List - Final Discharge Diagnosis/Problem (1) Abdominal pain Status: Acute Assessment & Plan: Patient was having abdominal pain. It improved throughout hospital course. She was initially treated for UTI and Diverticulitis as potential causes but they were ruled out. Patient was tolerating PO and still had mild nausea. She will follow up with PCP Code(s): R10.9 - UNSPECIFIED ABDOMINAL PAIN (2) Leukocytosis Status: Acute Assessment & Plan: Trended down close to wnl. Patient had elevated WBC esr and crp so likely had an inflammatory process and not infectious. Code(s): D72.829 - ELEVATED WHITE BLOOD CELL COUNT, UNSPECIFIED (3) Low back pain Status: Acute Assessment & Plan: Still present. Unsure if this is related to her lupus. She did have elevated reactive markers. She tolerated ibuprofen, flexiril, gabapentin and norco. Will discharge on short course of pain meds and gabapentin and ibuprofen. Code(s): M54.5 - LOW BACK PAIN (4) Lupus Status: Acute Assessment & Plan: Patient has follow up appt with a new rheum. Code(s): M32.9 - SYSTEMIC LUPUS ERYTHEMATOSUS, UNSPECIFIED - Discharge Disposition: Home, Self-Care Condition: Stable Prescriptions: New Docusate Sodium 100 mg [Colace 100 MG] 100 mg PO DAILY #30 cap Gabapentin 200 mg PO TID 30 Days #180 capsule Ibuprofen 800 mg PO Q8HPRN PRN 10 Days #30 tablet PRN Reason: Mild To Moderate Pain Hydrocodone/APAP 5-325 Tab^^^ [[place] 5-325 Tablet^^^] 1 each PO Q6HPRN PRN 7 Days #6 tablet MDD 2 PRN Reason: Mild To Moderate Pain Ondansetron ODT 4 MG [Zofran Odt 4 mg] 4 mg PO Q6H PRN PRN #16 tab.ra pdis PRN Reason: Nausea/Vomiting Continue Propranolol HCl 40 mg PO DAILY OXcarbazepine [Trileptal] 1,200 mg PO HS Trazodone HCl [Desyrel] 75 mg PO QHS Famotidine 20 mg [Pepcid 20 MG] 20 mg PO DAILY PANTOPRAZOLE 40 mg Tablet [Protonix 40MG Tablet] 40 mg PO QPM Fluvoxamine Maleate [Fluvoxamine Maleate ER] 150 mg PO DAILY Cariprazine HCl [Vraylar] 1.5 mg PO DAILY Etonogestrel [Nexplanon] 68 mg SQ UD No Action Promethazine HCl 25 mg [Phenergan 25 mg] 25 mg PO Q8H PRN PRN #10 tablet PRN Reason: Nausea/Vomiting Instructions: Diverticulosis (DC), Gabapentin Additional Instructions: Patient is to follow up with Rheumatology for possible sle flare. She was on plaquinil and that caused some negative side effects. She likely needs to be on routine meds for sle. Call Dr Steven Granados, [employer] Technician, Thursday morning to make appointment for possible SLE flare. [phone]. Follow up with: HANNAH AMAYA [Primary Care Provider] - 09/22/19 3:00 pm
[2019-09-16 11:55] VITALS: O2SAT 97
[2019-09-16] MEDS: MOTRIN 400 MG PO PRN (15:40)
[2019-09-16 16:30] VITALS: BP 114/56; PULSE 71
== END 2019-09-16 18:32 | disposition home or self-care (01) | DRG 392 ==
LOC: ED 21:41 → MED SURG 09-12 00:59 → OBSVTOIN 09-13 15:00
PROVIDERS: ADMIT Family Medicine; ATTEND Family Medicine
DX: K57.30 Diverticulosis of large intestine without perforation or abscess without bleeding (principal); I10 Essential (primary) hypertension; F31.9 Bipolar disorder, unspecified; E78.00 Pure hypercholesterolemia, unspecified; Z79.899 Other long term (current) drug therapy
CPT/HCPCS: 36415; 74021; 74176; 80053; 80202; 81001; 81025; 83036; 83690; 85025; 85652; 86141; 87086; 87491; 87591; 96372; 99285; G0378; J1885; J2405; Q0162; A9270-GY; J3370

== ENCOUNTER 2019-09-18 18:21 | Emergency (ER) | payer MEDICAID ==
--- NOTE | 2019-09-18 18:26 | ERPHSYRPT ---
- History of Present Illness Time Seen by Provider: 09/18/19 18:25 Historian: patient, family Exam Limitations: no limitations Physician History: This is a 24-year-old obese white female who has a history of lupus. 1 week ago the patient was having some flank pain as well as some abdominal pain. This worsened and she began having vomiting episodes. Onset of the symptoms was approximately 9 days ago but they were worse 1 week ago. She sought medical attention emergency department. A CAT scan of the abdomen pelvis did not show anything acute intra-abdominal he. Patient has a history of elevated cholesterol, gastroesophageal reflux disease, hypertension, anxiety, bipolar diagnosis and depression. Patient has had a cholecystectomy. Patient does have a lot porter and a lamp shades supervisor. She is going to call a new lamp shades supervisor on Thursday. Her lot porter is Dr. Marie out of [facility]. She sees him for esophageal dilation as well as excision of polyps in her esophagus. Patient cannot hold any food fluid or medication down. She is concerned that she is getting dehydrated. Timing/Duration: week(s) (1), intermittent, worse Quality: aching, cramping Abdominal Pain Onset Location: generalized abdomen Pain Radiation: no radiation Severity of Pain-Max: moderate Severity of Pain-Current: moderate Associated Symptoms: loss of appetite, nausea, vomiting, No diarrhea Previous symptoms: same symptoms as today Allergies/Adverse Reactions: amitriptyline [From Elavil] Allergy (Verified 09/18/19 18:46) PT STATES MAKES HER GO "CRAZY AND WENT TO PSYCH DENT" amoxicillin [Amoxicillin] Allergy (Verified 09/18/19 18:46) metronidazole [From Flagyl] Allergy (Verified 09/18/19 18:46) Metronidazole HCl [From Flagyl] Allergy (Verified 09/18/19 18:46) ofloxacin [From Floxin] Allergy (Verified 09/18/19 18:46) Yyokble-Lar-Emc Reductase Inhibitor Allergy (Verified 09/18/19 18:46) caffeine Adverse Reaction (Verified 09/18/19 18:46) codeine Adverse Reaction (Verified 09/18/19 18:46) Home Medications: Famotidine 20 mg [Pepcid 20 MG] 20 mg PO DAILY 02/25/17 [History] OXcarbazepine [Trileptal] 1,200 mg PO HS 02/25/17 [History] PANTOPRAZOLE 40 mg Tablet [Protonix 40MG Tablet] 40 mg PO QPM 02/25/17 [History] Propranolol HCl 40 mg PO DAILY 02/25/17 [History] Trazodone HCl [Desyrel] 75 mg PO QHS 02/25/17 [History] Fluvoxamine Maleate [Fluvoxamine Maleate ER] 150 mg PO DAILY 10/05/18 [History] Cariprazine HCl [Vraylar] 1.5 mg PO DAILY 03/10/19 [History] Etonogestrel [Nexplanon] 68 mg SQ UD 03/10/19 [History] Hx Tetanus, Diphtheria Vaccination/Date Given: Yes Hx Influenza Vaccination/Date Given: No Hx Pneumococcal Vaccination/Date Given: No Travel Risk - International Travel Have you traveled outside of the country in past 3 weeks: No - Coronavirus Screening Are you exhibiting any of the following symptoms?: No Close contact with a COVID-19 positive Pt in past 14-21 Days: No - Review of Systems Constitutional: No Symptoms Eyes: No Symptoms Ears, Nose, & Throat: No Symptoms Respiratory: No Symptoms Cardiac: No Symptoms Abdominal/Gastrointestinal: Abdominal Pain, Nausea, Vomiting, No Diarrhea, No Constipation Genitourinary Symptoms: No Symptoms Musculoskeletal: No Symptoms Skin: No Symptoms Neurological: No Symptoms Psychological: No Symptoms Endocrine: No Symptoms Hematologic/Lymphatic: No Symptoms Immunological/Allergic: No Symptoms All Other Systems: Reviewed and Negative - Past Medical History Pertinent Past Medical History: Yes Neurological History: No Pertinent History ENT History: No Pertinent History Cardiac History: High Cholesterol, Hypertension Respiratory History: No Pertinent History Endocrine Medical History: No Pertinent History Musculoskeletal History: No Pertinent History GI Medical History: Other History: No Pertinent History Psycho-Social History: Anxiety, Bipolar, Depression Female Reproductive Disorders: No Pertinent History Other Medical History: LUPUS - Past Surgical History Past Surgical History: Yes Neuro Surgical History: No Pertinent History Cardiac: No Pertinent History Respiratory: No Pertinent History Gastrointestinal: Cholecystectomy Genitourinary: No Pertinent History Musculoskeletal: Orthopedic Surgery Female Surgical History: No Pertinent History Other Surgical History: EAR SURG, FOOT SURGERY - Social History Smoking Status: Never smoker Exposure to second hand smoke: No Drug Use: none Patient Lives Alone: No Significant Family History: no pertinent family hx - Nursing Vital Signs Nursing Vital Signs: Initial Vital Signs Temperature 97.9 F 09/18/19 18:28 Pulse Rate 85 09/18/19 18:28 Blood Pressure 137/76 09/18/19 18:28 O2 Sat by Pulse Oximetry 97 09/18/19 18:28 Pain Scale Pain Intensity 8 - Physical Exam General Appearance: no apparent distress, alert, anxiety Eye Exam: PERRL/EOMI, eyes nml inspection Ears, Nose, Throat Exam: normal ENT inspection, moist mucous membranes Neck Exam: normal inspection, non-tender, supple, full range of motion Respiratory Exam: normal breath sounds, lungs clear, airway intact, No chest tenderness, No respiratory distress Cardiovascular Exam: regular rate/rhythm, normal heart sounds, normal peripheral pulses Gastrointestinal/Abdomen Exam: soft, normal bowel sounds, tenderness (Neurolysed), guarding, No rebound Pelvic Exam: not done Rectal Exam: not done Back Exam: normal inspection, normal range of motion, No CVA tenderness, No vertebral tenderness Extremity Exam: normal inspection, normal range of motion, pelvis stable Neurologic Exam: alert, oriented x 3, cooperative, hardboard grinder II-XII nml as tested, normal mood/affect, nml cerebellar function, nml station & gait Skin Exam: normal color, warm, dry Lymphatic Exam: No adenopathy SpO2 Interpretation: normal O2 Delivery: Room Air Ordered Tests: Active Orders 24 hr Category Date Time Status IV Insertion STAT Care 09/18/19 19:11 Active ABDOMEN AND PELVIS W/0 CONTRAS [CT] Stat Exams 09/18/19 19:12 Taken AMYLASE Stat Lab 09/18/19 20:46 Completed CBC W DIFF Stat Lab 09/18/19 20:46 Completed CMP Stat Lab 09/18/19 20:46 Completed LIPASE Stat Lab 09/18/19 20:46 Completed Lactic Acid Stat Lab 09/18/19 21:40 Completed UA W/RFX UR CULTURE Stat Lab 09/18/19 19:46 Completed Urine Triage Profile Stat Lab 09/18/19 19:46 Completed Medication Summary Discontinued Medications Generic Name Dose Route Start Last Admin Trade Name Freq PRN Reason Stop Dose Admin Hydromorphone HCl 1 mg 09/18/19 19:58 09/18/19 21:17 Hydromorphone 1 Mg/Ml Ampule IV 09/18/19 19:59 1 mg STAT ONE Administration Hydromorphone HCl Confirm 09/18/19 21:16 Hydromorphone 1 Mg/Ml Ampule Administered 09/18/19 21:17 Dose 1 mg .ROUTE .STK-MED ONE Sodium Chloride 1,000 mls @ 999 mls/hr 09/18/19 19:11 09/18/19 23:09 Sodium Chloride 0.9% 1000 Ml IV 09/18/19 20:11 Infused .Q1H1M STA Infusion Sodium Chloride Confirm 09/18/19 19:55 Sodium Chloride 0.9% 1000 Ml Administered 09/18/19 19:56 Dose 1,000 mls @ ud .ROUTE .STK-MED ONE Sodium Chloride Confirm 09/18/19 21:13 Sodium Chloride 0.9% 1000 Ml Administered 09/18/19 21:14 Dose 1,000 mls @ ud .ROUTE .STK-MED ONE Methylprednisolone Sodium Succinate 125 mg 09/18/19 19:58 09/18/19 21:17 Solu-Medrol 125 Mg IV 09/18/19 19:59 125 mg STAT ONE Administration Methylprednisolone Sodium Succinate Confirm 09/18/19 21:16 Solu-Medrol 125 Mg Administered 09/18/19 21:17 Dose 125 mg .ROUTE .STK-MED ONE Promethazine HCl 25 mg 09/18/19 19:11 09/18/19 20:20 Phenergan 25 Mg Inj IM 09/18/19 19:12 25 mg STAT ONE Administration Promethazine HCl Confirm 09/18/19 19:55 Phenergan 25 Mg Inj Administered 09/18/19 19:56 Dose 25 mg .ROUTE .STK-MED ONE Lab/Rad Data: Laboratory Result Diagrams 09/18/19 20:46 09/18/19 20:46 Laboratory Results 09/18/19 09/18/19 09/18/19 Range/Units 21:40 20:46 20:46 WBC 14.8 H (4.0-10.5) K/mm3 RBC 4.54 (4.1-5.4) M/mm3 Hgb 13.1 (12.0-16.0) gm/dl Hct 40.7 (35-47) % MCV 89.6 (78-100) fl MCH 28.9 (26-32) pg MCHC 32.2 (32-36) g/dl RDW 13.9 (11.5-14.0) % Plt Count 240 (150-450) K/mm3 MPV 9.8 (7.5-11.0) fl Gran % 73.2 H (36.0-66.0) % Eos # (Auto) 0.14 (0-0.5) Absolute Lymphs (auto) 3.09 (1.0-4.6) Absolute Monos (auto) 0.73 (0.0-1.3) Lymphocytes % 20.9 L (24.0-44.0) % Monocytes % 4.9 (0.0-12.0) % Eosinophils % 0.9 (0.00-5.0) % Basophils % 0.1 (0.0-0.4) % Absolute Granulocytes 10.82 H (1.4-6.9) Basophils # 0.02 (0-0.4) Sodium 139 (137-145) mmol/L Potassium 4.3 (3.5-5.1) mmol/L Chloride 107 (98-107) mmol/L Carbon Dioxide 26 (22-30) mmol/L Anion Gap 10.7 (5-15) MEQ/L BUN 12 (7-17) mg/dL Creatinine 0.80 (0.52-1.04) mg/dL Estimated GFR > 60.0 ML/MIN Glucose 89 (74-106) mg/dL Lactic Acid 0.9 (0.4-2.0) Calcium 9.7 (8.4-10.2) mg/dL Total Bilirubin 0.50 (0.2-1.3) mg/dL AST 51 H (14-36) U/L ALT 77 H (0-35) U/L Alkaline Phosphatase 98 (38-126) U/L Serum Total Protein 8.1 (6.3-8.2) g/dL Albumin 4.4 (3.5-5.0) g/dL Amylase 167 H (30-110) U/L Lipase 58 (23-300) U/L Urine Color (YELLOW) Urine Appearance (CLEAR) Urine pH (5-6) Ur Specific [place] (1.005-1.025) Urine Protein (Negative) Urine Ketones (NEGATIVE) Urine Blood (0-5) Lon/ul Urine Nitrite (NEGATIVE) Urine Bilirubin (NEGATIVE) Urine Urobilinogen (0-1) mg/dL Ur Leukocyte Esterase (NEGATIVE) Urine WBC (Auto) (0-5) /HPF Urine RBC (Auto) (0-2) /HPF U Epithel Cells (Auto) (FEW) /HPF Urine Bacteria (Auto) (NEGATIVE) /HPF Urine Culture Reflexed (NO) Urine Glucose (NEGATIVE) mg/dL Urine Opiates Level (NEGATIVE) Ur Methadone (NEGATIVE) Urine Barbiturates (NEGATIVE) Ur Phencyclidine (PCP) (NEGATIVE) Urine Amphetamine (NEGATIVE) U Benzodiazepine Level (NEGATIVE) Urine Cocaine (NEGATIVE) Urine Marijuana (THC) (NEGATIVE) 09/18/19 09/18/19 Range/Units 19:46 19:46 WBC (4.0-10.5) K/mm3 RBC (4.1-5.4) M/mm3 Hgb (12.0-16.0) gm/dl Hct (35-47) % MCV (78-100) fl MCH (26-32) pg MCHC (32-36) g/dl RDW (11.5-14.0) % Plt Count (150-450) K/mm3 MPV (7.5-11.0) fl Gran % (36.0-66.0) % Eos # (Auto) (0-0.5) Absolute Lymphs (auto) (1.0-4.6) Absolute Monos (auto) (0.0-1.3) Lymphocytes % (24.0-44.0) % Monocytes % (0.0-12.0) % Eosinophils % (0.00-5.0) % Basophils % (0.0-0.4) % Absolute Granulocytes (1.4-6.9) Basophils # (0-0.4) Sodium (137-145) mmol/L Potassium (3.5-5.1) mmol/L Chloride (98-107) mmol/L Carbon Dioxide (22-30) mmol/L Anion Gap (5-15) MEQ/L BUN (7-17) mg/dL Creatinine (0.52-1.04) mg/dL Estimated GFR ML/MIN Glucose (74-106) mg/dL Lactic Acid (0.4-2.0) Calcium (8.4-10.2) mg/dL Total Bilirubin (0.2-1.3) mg/dL AST (14-36) U/L ALT (0-35) U/L Alkaline Phosphatase (38-126) U/L Serum Total Protein (6.3-8.2) g/dL Albumin (3.5-5.0) g/dL Amylase (30-110) U/L Lipase (23-300) U/L Urine Color YELLOW (YELLOW) Urine Appearance CLEAR (CLEAR) Urine pH 7.0 (5-6) Ur Specific [place] 1.021 (1.005-1.025) Urine Protein NEGATIVE (Negative) Urine Ketones NEGATIVE (NEGATIVE) Urine Blood NEGATIVE (0-5) Lon/ul Urine Nitrite NEGATIVE (NEGATIVE) Urine Bilirubin NEGATIVE (NEGATIVE) Urine Urobilinogen NEGATIVE (0-1) mg/dL Ur Leukocyte Esterase NEGATIVE (NEGATIVE) Urine WBC (Auto) 3-5 (0-5) /HPF Urine RBC (Auto) 3-5 (0-2) /HPF U Epithel Cells (Auto) RARE (FEW) /HPF Urine Bacteria (Auto) RARE (NEGATIVE) /HPF Urine Culture Reflexed NO (NO) Urine Glucose NEGATIVE (NEGATIVE) mg/dL Urine Opiates Level NEGATIVE (NEGATIVE) Ur Methadone NEGATIVE (NEGATIVE) Urine Barbiturates NEGATIVE (NEGATIVE) Ur Phencyclidine (PCP) NEGATIVE (NEGATIVE) Urine Amphetamine NEGATIVE (NEGATIVE) U Benzodiazepine Level NEGATIVE (NEGATIVE) Urine Cocaine NEGATIVE (NEGATIVE) Urine Marijuana (THC) NEGATIVE (NEGATIVE) - Progress Progress: improved, re-examined Progress Note: 09/18/19 23:21 CAT scan of the abdomen and pelvis shows right ovarian cyst. No acute intra- abdominal process or pathology present. The patient was given a glass of ice water. Within seconds of taking a single gulp patient states that she was about ready to gag on the fluid. She is not nauseated. She states the Phenergan is working well for her. I told her that I think her issue is going to be diagnosed by either a lot porter or a lamp shades supervisor. Patient's electrolytes are within normal limits. I expected her to have leukocytosis because of the number time she has vomited. Patient has no ketones in her urine and her specific gravity is within normal limits. Patient does not need to be admitted in the hospital at this time. I will send a prescription for Phenergan to her pharmacy. She is to call her gastroe nterologist and lamp shades supervisor tomorrow morning, 09/19/2019 to make arrangements for appointment and further management. Counseled pt/family regarding: lab results, diagnosis, need for follow-up, rad results - Departure Departure Disposition: Home Clinical Impression: Vomiting, Abdominal pain Condition: Stable Critical Care Time: No Referrals: HANNAH AMAYA [Primary Care Provider] - Additional Instructions: Drink clear liquids. May advance to full liquids if tolerating clear liquids well. Use your Phenergan and Zofran anti-nausea medicine as prescribed if needed. Call your lot porter and lamp shades supervisor tomorrow to make arrangements for follow-up appointment for further management of your symptoms. Prescriptions: Promethazine HCl 25 mg [Phenergan 25 mg] 25 mg PO Q8H PRN PRN #10 tablet PRN Reason: Nausea/Vomiting
[2019-09-18] MEDS ORDERED: Sodium Chloride 0.9% 1000 ML 1,000 ML IV STA (19:11)
[2019-09-18] MEDS ORDERED: Phenergan 25 MG INJ IM ONE (19:11)
[2019-09-18 19:55] LABS: Appearance CLEAR (CLEAR); Bacteria RARE /HPF (NEGATIVE); Bilirubin NEGATIVE (NEGATIVE); Blood NEGATIVE Ery/ul (0-5); Epithelial Cells RARE /HPF (FEW); Glucose NEGATIVE (NEGATIVE); Ketones NEGATIVE (NEGATIVE); Leukocyte Esterase NEGATIVE (NEGATIVE); Nitrite NEGATIVE (NEGATIVE); Protein,Urine Dip NEGATIVE (Negative); Specific Gravity 1.021 (1.005-1.025); Urobilinogen NEGATIVE mg/dL (0-1)
[2019-09-18] MEDS ORDERED: Phenergan 25 MG INJ ONE (19:55)
[2019-09-18] MEDS ORDERED: Sodium Chloride 0.9% 1000 ML 1,000 ML ONE ×2 (19:55→21:13)
[2019-09-18] MEDS ORDERED: Hydromorphone 1 mg/ml Ampule IV ONE (19:58)
[2019-09-18] MEDS ORDERED: solu-MEDROL 125 MG IV ONE (19:58)
[2019-09-18 20:04] LABS: Amphetamine,Urine NEGATIVE (NEGATIVE); Barbiturate,Urine NEGATIVE (NEGATIVE); Benzodiazepine,Urine NEGATIVE (NEGATIVE); Cocaine,Urine NEGATIVE (NEGATIVE); Methadone,Urine NEGATIVE (NEGATIVE); Opiate,Urine NEGATIVE (NEGATIVE); PCP,Urine NEGATIVE (NEGATIVE); THC,Urine NEGATIVE (NEGATIVE)
[2019-09-18 20:52] LABS: Absolute Neutrophil Ct (ANC) 10.82 (1.4-6.9); BASOPHIL % 0.1 % (0.0-0.4); Basophil (Absolute #) 0.02 (0-0.4); Eosinophil % 0.9 % (0.00-5.0); Eosinophil (Absolute #) 0.14 (0-0.5); Hematocrit 40.7 % (35-47); Hemoglobin 13.1 gm/dl (12.0-16.0); Lymphocyte (Absolute #) 3.09 (1.0-4.6); Lymphocytes % 20.9 % (24.0-44.0); Mean Cell Volume 89.6 fl (78-100); Mean Corpuscular Hemoglobin 28.9 pg (26-32); Mean Corpuscular Hgb Concent. 32.2 g/dl (32-36); Mean Platelet Volume 9.8 fl (7.5-11.0); Monocyte (Absolute #) 0.73 (0.0-1.3); Monocytes % 4.9 % (0.0-12.0); Neutrophil % 73.2 % (36.0-66.0); Platelet Count 240 K/mm3 (150-450); Red Blood Count 4.54 M/mm3 (4.1-5.4); Red Cell Distribution Width 13.9 % (11.5-14.0); White Blood Count 14.8 K/mm3 (4.0-10.5)
[2019-09-18 21:02] LABS: ALBUMIN 4.4 g/dL (3.5-5.0); ALKALINE PHOSPHATASE 98 U/L (38-126); AMYLASE 167 U/L (30-110); ANION GAP 10.7 MEQ/L (5-15); BLOOD UREA NITROGEN 12 mg/dL (7-17); CHLORIDE 107 mmol/L (98-107); Calcium 9.7 mg/dL (8.4-10.2); Carbon Dioxide 26 mmol/L (22-30); Glucose 89 mg/dL (74-106); LIPASE 58 U/L (23-300); Potassium 4.3 mmol/L (3.5-5.1); SGOT/AST 51 U/L (14-36); SGPT/ALT 77 U/L (0-35); SODIUM 139 mmol/L (137-145); Total Protein 8.1 g/dL (6.3-8.2)
[2019-09-18] MEDS ORDERED: Hydromorphone 1 mg/ml Ampule ONE (21:16)
[2019-09-18] MEDS ORDERED: solu-MEDROL 125 MG ONE (21:16)
[2019-09-18 23:09] VITALS: BP 131/89; PULSE 73; O2SAT 94
--- NOTE | 2019-09-19 08:41 | XRAY ---
Indication: Abdomen pain. Constipation. Nausea and vomiting. Multiple contiguous axial images obtained through the abdomen and pelvis without contrast as ordered. Comparison: September 11, 2019. Lung bases demonstrates stable tiny left costophrenic angle noncalcified nodule. No infiltrate or effusion. Heart is not enlarged. Small right infrahilar calcified nodes not previously imaged. Noncontrasted stomach and bowel loops remain nonobstructed. Again normal appendix, minimal colonic diverticulosis, calcified splenic granulomas, and cholecystectomy. Enlarging right ovary cyst today measuring 3.4 cm. No free fluid/air. Remaining liver, pancreas, spleen, adrenal glands, kidneys, ureters, bladder, uterus, and aorta appear unremarkable for noncontrast exam. Impression: 1. Enlarging 3.4 cm right ovary cyst. Pelvic sonogram may yield further information if clinically warranted. 2. Stable minimal colonic diverticulosis, tiny left costophrenic angle noncalcified micronodule, and evidence for old granulomatous disease. Comment: Preliminary interpretation was made by [facility]. No critical discrepancy.
== END 2019-09-18 23:44 | disposition home or self-care (01) ==
LOC: ED 18:21
DX: R11.0 Nausea (principal); R10.9 Unspecified abdominal pain; N83.201 Unspecified ovarian cyst, right side; K21.9 Gastro-esophageal reflux disease without esophagitis; I10 Essential (primary) hypertension; F41.9 Anxiety disorder, unspecified; F32.9 Major depressive disorder, single episode, unspecified; Z79.899 Other long term (current) drug therapy
CPT/HCPCS: 36000; 36415; 74176; 80053; 80307; 81001; 82150; 83605; 83690; 85025; 96360; 96372; 96374; 96375; 99284; J1170; J2550; J2930

== ENCOUNTER 2019-12-29 19:40 | Emergency (ER) | payer MEDICAID ==
[2019-12-29 20:00] VITALS: O2SAT 98
[2019-12-29] MEDS ORDERED: BACTRIM DS TABLET PO ONE ×2 (20:12→20:17)
[2019-12-29] MEDS ORDERED: ZOFRAN ODT 4 MG PO ONE (20:13)
[2019-12-29] MEDS ORDERED: ZOFRAN ODT 4 MG ONE (20:16)
[2019-12-29 20:27] LABS: Appearance CLEAR (CLEAR); Bacteria FEW /HPF (NEGATIVE); Bilirubin NEGATIVE (NEGATIVE); Blood LARGE Ery/ul (0-5); Epithelial Cells RARE /HPF (FEW); Glucose NEGATIVE (NEGATIVE); Ketones NEGATIVE (NEGATIVE); Leukocyte Esterase NEGATIVE (NEGATIVE); Mucus SLIGHT /HPF (NEGATIVE); Nitrite POSITIVE (NEGATIVE); Protein,Urine Dip NEGATIVE (Negative); Specific Gravity 1.013 (1.005-1.025); Urobilinogen 4 mg/dL (0-1)
--- NOTE | 2019-12-29 21:03 | ERPHSYRPT ---
- History of Present Illness Time Seen by Provider: 12/29/19 19:55 Source: patient Exam Limitations: no limitations Patient Subjective Stated Complaint: lower abdominal pain, UTI, nausea, vomiting, body aches, vaginal bleeding, and fever up to 102 degrees farenheit Triage Nursing Assessment: UTI dx on 12/28/[address] Amaya. Started on microbid 12/28/19. Has taken two doses of microbid and vomited both times. Contacted Dr. Amaya today and bactrim was ordered but patient was unable to miner pick bactrim due to insurance refusing to cover it. Patient has increased lower abdominal pain tonight. She also has had body aches, vaginal bleeding, and fever up to 102 degrees farenheit as well. Physician History: Patient is a 24-year-old female presents to our ED with complaints of suprapubic pain and hematuria. Patient saw her primary care doctor who diagnosed her with a urinary tract infection. Patient was started on Macrobid. However patient unable to tolerate Macrobid. She vomited the Macrobid. Patient called her primary care doctor within change of the Bactrim. However patient unable to take Bactrim because insurance is not currently. Patient is here because her symptoms are ongoing and does not have her antibiotics at this point. Patient states that she had a fever at home however patient currently afebrile. She did not take any antipyretics. Symptoms are mild to moderate in intensity. No s pecific worsening improving factors. Patient denies the possibility of STI. She is currently on contraception. Patient denies vaginal pain. No pelvic pain. No diarrhea. No rash. No chest pain or shortness of breath. No flank pain symptoms are mild in intensity. Palpation to the suprapubic region reproduces symptoms. Patient voices no other complaints concerns at this time. Timing/Duration: day(s) (2 days) Severity: moderate Modifying Factors: Improves With: nothing Associated Symptoms: denies symptoms, No nausea, No vomiting, No shortness of breath, No chest pain, No fever, No headaches, No loss of appetite, No malaise Allergies/Adverse Reactions: amitriptyline [From Elavil] Allergy (Verified 09/18/19 18:46) PT STATES MAKES HER GO "CRAZY AND WENT TO PSYCH DENT" amoxicillin [Amoxicillin] Allergy (Verified 09/18/19 18:46) metronidazole [From Flagyl] Allergy (Verified 09/18/19 18:46) Metronidazole HCl [From Flagyl] Allergy (Verified 09/18/19 18:46) ofloxacin [From Floxin] Allergy (Verified 09/18/19 18:46) Htineal-Syr-Sbm Reductase Inhibitor Allergy (Verified 09/18/19 18:46) caffeine Adverse Reaction (Verified 09/18/19 18:46) codeine Adverse Reaction (Verified 09/18/19 18:46) Home Medications: Famotidine 20 mg [Pepcid 20 MG] 20 mg PO DAILY 02/25/17 [History] OXcarbazepine [Trileptal] 1,200 mg PO HS 02/25/17 [History] PANTOPRAZOLE 40 mg Tablet [Protonix 40MG Tablet] 40 mg PO QPM 02/25/17 [History] Propranolol HCl 40 mg PO DAILY 02/25/17 [History] Trazodone HCl [Desyrel] 75 mg PO QHS 02/25/17 [History] Fluvoxamine Maleate [Fluvoxamine Maleate ER] 150 mg PO DAILY 10/05/18 [History] Cariprazine HCl [Vraylar] 1.5 mg PO DAILY 03/10/19 [History] Etonogestrel [Nexplanon] 68 mg SQ UD 03/10/19 [History] Hx Tetanus, Diphtheria Vaccination/Date Given: Yes Hx Influenza Vaccination/Date Given: No Hx Pneumococcal Vaccination/Date Given: No Immunizations Up to Date: Yes Travel Risk - International Travel Have you traveled outside of the country in past 3 weeks: No - Coronavirus Screening Are you exhibiting any of the following symptoms?: Yes Symptoms: Fever, Vomiting/Diarrhea, Headaches/Body Aches/Fatigue Close contact with a COVID-19 positive Pt in past 14-21 Days: No - Review of Systems Constitutional: No Symptoms, No Fever, No Chills Eyes: No Symptoms Ears, Nose, & Throat: No Symptoms Respiratory: No Symptoms, No Cough, No Dyspnea Cardiac: No Symptoms, No Chest Pain, No Edema, No Syncope Abdominal/Gastrointestinal: No Symptoms, No Abdominal Pain, No Nausea, No Vomiting, No Diarrhea Genitourinary Symptoms: No Symptoms, No Dysuria Musculoskeletal: No Symptoms, No Back Pain, No Neck Pain Skin: No Symptoms, No Rash Neurological: No Symptoms, No Dizziness, No Focal Weakness, No Sensory Changes Psychological: No Symptoms Endocrine: No Symptoms Hematologic/Lymphatic: No Symptoms Immunological/Allergic: No Symptoms All Other Systems: Reviewed and Negative - Past Medical History Pertinent Past Medical History: Yes Neurological History: No Pertinent History ENT History: No Pertinent History Cardiac History: High Cholesterol, Hypertension Respiratory History: No Pertinent History Endocrine Medical History: No Pertinent History Musculoskeletal History: No Pertinent History GI Medical History: Other History: No Pertinent History Psycho-Social History: Anxiety, Bipolar, Depression Female Reproductive Disorders: No Pertinent History Other Medical History: LUPUS - Past Surgical History Past Surgical History: Yes Neuro Surgical History: No Pertinent History Cardiac: No Pertinent History Respiratory: No Pertinent History Gastrointestinal: Cholecystectomy Genitourinary: No Pertinent History Musculoskeletal: Orthopedic Surgery Female Surgical History: No Pertinent History Other Surgical History: EAR SURG, FOOT SURGERY, bariatric surgery - Social History Smoking Status: Never smoker Exposure to second hand smoke: No Drug Use: none Patient Lives Alone: No Significant Family History: no pertinent family hx - Female History Hx Last Menstrual Period: 12/15/19 Hx Now: No (nexplanon) - Nursing Vital Signs Nursing Vital Signs: Initial Vital Signs Temperature 98 F 12/29/19 19:49 Pulse Rate 77 12/29/19 19:49 Respiratory Rate 16 12/29/19 19:49 Blood Pressure 134/94 12/29/19 19:49 O2 Sat by Pulse Oximetry 98 12/29/19 19:49 Pain Scale Pain Intensity 7 - Physical Exam General Appearance: no apparent distress, alert, other (Patient sitting up in bed. She is conversant well-appearing no acute distress.) Eye Exam: PERRL/EOMI, eyes nml inspection Ears, Nose, Throat Exam: normal ENT inspection, TMs normal, pharynx normal, moist mucous membranes Neck Exam: normal inspection, non-tender, supple, full range of motion Respiratory Exam: normal breath sounds, lungs clear, No respiratory distress Cardiovascular Exam: regular rate/rhythm, normal heart sounds, normal peripheral pulses Gastrointestinal/Abdomen Exam: soft, normal bowel sounds, other (No flank pain no back pain no CVA tenderness.), No tenderness, No mass Pelvic Exam: not done, other (Patient denies the possibility of STI. Patient declined a pelvic exam.) Back Exam: normal inspection, normal range of motion, No CVA tenderness, No vertebral tenderness Extremity Exam: normal inspection, normal range of motion, pelvis stable Neurologic Exam: alert, oriented x 3, cooperative, normal mood/affect, nml cerebellar function, nml station & gait, sensation nml, No motor deficits Skin Exam: normal color, warm, dry, No rash Lymphatic Exam: No adenopathy SpO2 Interpretation: normal SpO2: 98 O2 Delivery: Room Air - Course Nursing assessment & vital signs reviewed: Yes Ordered Tests: Active Orders 24 hr Category Date Time Status CULTURE,URINE Stat Lab 12/29/19 20:00 Received HCG,QUALITATIVE URINE Stat Lab 12/29/19 20:00 Completed UA W/RFX UR CULTURE Stat Lab 12/29/19 20:00 Completed Medication Summary Discontinued Medications Generic Name Dose Route Start Last Admin Trade Name Freq PRN Reason Stop Dose Admin Ondansetron HCl 4 mg 12/29/19 20:13 12/29/19 20:20 Zofran Odt 4 Mg PO 12/29/19 20:14 4 mg STAT ONE Administration Ondansetron HCl Confirm 12/29/19 20:16 Zofran Odt 4 Mg Administered 12/29/19 20:17 Dose 4 mg .ROUTE .STK-MED ONE Trimethoprim/Sulfamethoxazole 1 tab 12/29/19 20:12 12/29/19 20:20 Bactrim Ds Tablet PO 12/29/19 20:13 1 tab STAT ONE Administration Trimethoprim/Sulfamethoxazole Confirm 12/29/19 20:17 Bactrim Ds Tablet Administered 12/29/19 20:18 Dose 1 tab PO .STK-MED ONE Lab/Rad Data: Laboratory Results 12/29/19 12/29/19 Range/Units 20:00 20:00 Urine Color SHERICE (YELLOW) Urine Appearance CLEAR (CLEAR) Urine pH 6.0 (5-6) Ur Specific [place] 1.013 (1.005-1.025) Urine Protein NEGATIVE (Negative) Urine Ketones NEGATIVE (NEGATIVE) Urine Blood LARGE (0-5) Lon/ul Urine Nitrite POSITIVE (NEGATIVE) Urine Bilirubin NEGATIVE (NEGATIVE) Urine Urobilinogen 4 (0-1) mg/dL Ur Leukocyte Esterase NEGATIVE (NEGATIVE) Urine WBC (Auto) 11-15 (0-5) /HPF Urine RBC (Auto) 16-25 (0-2) /HPF U Epithel Cells (Auto) RARE (FEW) /HPF Urine Bacteria (Auto) FEW (NEGATIVE) /HPF Urine Mucus (Auto) SLIGHT (NEGATIVE) /HPF Urine Culture Reflexed YES (NO) Urine Glucose NEGATIVE (NEGATIVE) mg/dL Urine HCG, Qual NEGATIVE (Negative) - Progress Progress: improved Progress Note: 12/29/19 21:02 Patient reassessed. She is well. Vital stable. Patient afebrile. Patient given a dose of Bactrim with Zofran in our ED. Patient will miner pick her Bactrim prescription from her primary care doctor tomorrow. UA confirms urinary tract infection. Negative . There is a pyuria hematuria nitrite positive urine. Patient feels well. Pain is well controlled. 12/29/19 21:07 Counseled pt/family regarding: lab results, diagnosis, need for follow-up - Departure Departure Disposition: Home Clinical Impression: UTI (urinary tract infection), Cystitis Condition: Stable Critical Care Time: No Referrals: HANNAH AMAYA [Primary Care Provider] - Instructions: Urinary Tract Infection, Adult (DC) Additional Instructions: Discharge/Care Plan ROBBIEWILFREDO FLANNERY was seen on 12/29/19 in the Emergency Room. The patient was counseled regarding Diagnosis,Lab results, Imaging studies, need for follow up and when to return to the Emergency Room. Prescriptions given: Discharge Note I have spoken with the patient and/or caregivers. I have explained the patient's condition, diagnosis and treatment plan based on the information available to me at this time. I have answered the patient's and/or caregiver's questions and addressed any concerns. The patient and/or caregivers have as good understanding of the patient's diagnosis, condition and treatment plan as can be expected at this point. The vital signs have been stable. The patient's condition is stable and appropriate for discharge from the emergency department. The patient will pursue further outpatient evaluation with the primary care physician or other designated or consulting physician as outlined in the discharge instructions. The patient and/or caregivers are agreeable to this plan of care and follow-up instructions have been explained in detail. The patient and/or caregivers have received these instruction. The patient/and or caregivers are aware that any significant change in condition or worsening of symptoms should prompt an immediate return to this or the closest emergency department or call 911.
[2019-12-29 21:09] VITALS: BP 126/83; PULSE 57
== END 2019-12-29 21:10 | disposition home or self-care (01) ==
LOC: ED 19:40
DX: N39.0 Urinary tract infection, site not specified (principal); N30.90 Cystitis, unspecified without hematuria
CPT/HCPCS: 81001; 84703; 87077; 87086; 87186; 99283; Q0162; A9270-GY

== ENCOUNTER 2020-07-02 10:31 | Day surgery (SDC) | payer MEDICAID ==
[~2020-07-02 10:31] MED LIST: Lactated Ringers 1,000 ML IV SCH; MEFOXIN 2 GM PREMIX** 50 ML IV ONE; Sensorcaine 0.25% 10 ML ONE
[2020-07-02] MEDS ORDERED: Lactated Ringers 1,000 ML IV ONE ×2 (11:00→13:31)
[2020-07-02] MEDS ORDERED: Invanz 1 GM*** 1 G in Sodium Chloride 100ML MINI-BAG PLUS 100 ML IV ONE (11:20)
--- NOTE | 2020-07-02 11:57 | HP ---
HISTORY OF PRESENT ILLNESS: This is a 25 year-old female who presented to my office on Thursday. She had quite a number of GI issues recently and she was recently in the emergency room. She thought she was having a kidney stone. She had significant pain in her right lower abdomen and pelvic region radiating up to her right flank. She said that she saw the emergency room physician and was tactile and then she also seen her GI doctor at yesterday. She has had many GI issues after her bariatric surgery which she had within this past year. She now has about three bowel movements per week. She was having a significant amount of diarrhea and now this is different. She said that her GI doctor said that her body is just trying to even itself out now. She also has had some rheumatologic issues and she was seeing a iron piler but is not currently at this moment. She states that she continues to have this lower quadrant pain. It started while she was on vacation, went away for a week and then it came back. It became more severe. She went to the emergency room and then it got a little bit better but she continues to have it and is still having this pain while in my office. We reviewed the CT scan together essentially looked at this. It does look like she has likely infection, infarcted omentum on the CT scan although we are unable to tell exactly where this mass-like structure in her right lower quadrant is. I suspect status post bariatric surgery with her significant weight loss of over 70 pounds that she likely has a twisted piece of omentum that did infarct. Right now she is not septic. She is tender but there is no rebound, no guarding. She does not have an acute abdomen. She is eating. She is not vomiting. Her bowels are functioning. We plan to do a diagnostic laparoscopy and then take care of whatever I am able to take care of at that time based on what I find. I have discussed with her all the risks, benefits and alternatives to surgery and she will go back to the emergency room if symptoms change and she becomes more critical. 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 PLAN: Diagnostic laparoscopy.
[2020-07-02] MEDS ORDERED: Xylocaine-Mpf 2% 5 Ml Vial ONE (12:44)
[2020-07-02] MEDS ORDERED: Versed 2 MG/2 ML Injection ONE (12:44)
[2020-07-02] MEDS ORDERED: DIPRIVAN 200 MG/20 ML IV ONE (12:44)
[2020-07-02] MEDS ORDERED: BRIDION 200MG/2ML IV ONE (12:44)
[2020-07-02] MEDS ORDERED: Zemuron 100 MG/10 ML ONE ×2 (12:44→14:04)
[2020-07-02] MEDS ORDERED: SUBLIMAZE 100 MCG/2 ML ONE ×3 (12:44→14:56)
[2020-07-02] MEDS ORDERED: Zofran 4 MG/2 ML VIAL ONE ×2 (12:44→14:51)
[2020-07-02] MEDS ORDERED: TORAdol 30 mg Injection ONE (12:44)
[2020-07-02] MEDS ORDERED: Decadron 4 MG INJ ONE (12:44)
[2020-07-02] MEDS ORDERED: Hydromorphone 1 mg/ml Injection ONE (14:51)
[2020-07-02 16:21] LABS: Appearance CLEAR (CLEAR); Bilirubin NEGATIVE (NEGATIVE); Blood NEGATIVE Ery/ul (0-5); Glucose NEGATIVE (NEGATIVE); Ketones TRACE (NEGATIVE); Leukocyte Esterase NEGATIVE (NEGATIVE); Nitrite NEGATIVE (NEGATIVE); Protein,Urine Dip NEGATIVE (Negative); Urobilinogen NEGATIVE mg/dL (0-1)
[2020-07-02 16:40] VITALS: BP 125/73; PULSE 79; O2SAT 99
--- NOTE | 2020-07-05 15:03 | OP ---
PROCEDURE DATE/TIME: 07/02/2020 1245 PREOPERATIVE DIAGNOSIS: Right lower quadrant abdominal pain with fatty mass on CT scan. POSTOPERATIVE DIAGNOSIS: Right lower quadrant abdominal pain with fatty mass on CT scan. PROCEDURE: Diagnostic laparoscopy with partial omentectomy. PROCEDURE PERFORMED BY: Olena Martínez M.D. ANESTHESIA: General. ESTIMATED BLOOD LOSS: Minimal less than 10 cc. COMPLICATIONS: None. SPECIMEN: Partial omentectomy. PROCEDURE DETAILS: This is a patient who has had prior cholecystectomy a few years back and ten who also had a more recent gastric bypass surgery approximately nine months ago. She has lost about 75 pounds of weight and she recently started having right lower quadrant abdominal pain. This was worked up. She has also seen GI in [place] due to some other GI changes and on her imaging it was identified that she had a fatty-like mass in the right lower quadrant. The patient came to see me in the office. She is still not better. She continues to have pain here. All risks, benefits, alternatives regarding diagnostic laparoscopy were discussed with her in detail and she wanted to proceed. She was seen in the preoperative area. HP, consent confirmed and reviewed with her. Any remaining questions answered. Family at bedside. DESCRIPTION OF PROCEDURE: She was then brought back to the operative suite. Anesthesia induced. Prepped and draped in the usual sterile fashion. Complete time out performed. I then made a left upper quadrant incision. Upon placing the Veress, the patient had a baggy but thick peritoneum and I did not feel comfortable trying to pop in here after gently feeling with the Veress needle and so at that point we decided to take a Kiana approach. We made an inferior periumbilical incision slightly widened this to allow appropriate visualization for dissection down to her peritoneum. I used her old incision. Dissection was done all the way down to the fascia. We did a Kiana approach to enter. I was able to slat pickler on the fascia with Allis, opened the fascia. Carefully identified the peritoneum, pulled this up, opened this to gain access to the abdomen and then placed a 5 port trocar under direct visualization into the site without any injury. This was insufflated here. We then placed our left upper quadrant trocar to enter after visualizing with our camera and then we placed another left lower quadrant trocar while visualizing from the other ports with our camera. All ports placed under visualization. No injury is identified. No issues. I upsized the periumbilical port to a 12 port as well. We then did a survey of the abdomen. The patient's liver appears normal. I can see her gastrojejunostomy (GJ) anastomosis on the surface and there is no issue here. She has some mildly dilated colon but nothing pathologic. The surface of the bowels that are readily visible are normal appearing. There is no significant free fluid. Her right ovary appears to be normal with potentially a very small follicle and her left ovary does appear to be cystic. I do not see anything concerning but I did discuss with her family postoperatively that with the cyst we can get a pelvic ultrasound to follow these. Her appendix appears to be completely normal. Her cecum and terminal ileum appear to be completely normal from the exterior surface. I did notice a slightly bigger than an egg-sized ball of omentum that was firm and stuck in the right lower quadrant with adhesion down to the pelvis wall. This egg was pointing upward and appeared to be likely touching her peritoneum here like it could in appendicitis and highly suspect that this is absolutely the cause of her pain, this looks inflamed. It looks like the omentum may have twisted and then infarcted. At this point I then placed a LigaSure and we performed a partial omentectomy removing the inflamed wad of omentum as well as taking down the adhesions to the pelvis. There were a few adhesions to the pelvis but these were lysed completely. This omentum was taken with healthy margins as well and then placed into a laparoscopic bag. It was extracted within the bag through the umbilical port. I did have to further widen my incision to allow extraction through this port due to the nature and the thickness of the omental mass and this was sent to pathology. I am suspecting a benign process. There was no sign of obvious malignancy on the surface of the abdomen from what we could readily visualize. Once this was extracted, we then closed the fascia with interrupted 0 Vicryl suture. I laid all of the sutures in place and then I tied down each one sequentially. I then replaced my 5 camera through a 5 port trocar and insured good closure at the periumbilical fascial region. We did an inspection from all of our surgical sites. Everything was hemostatic. There were no issues identified. We then desufflated the abdomen, removed the 5 port, irrigated and closed with buried 4-0 Monocryl, Steri-Strips and sterile dressing. The patient tolerated the procedure very well. There were no immediate complications. She will be recovering and then likely will be discharging home today pending her clinical status.
== END 2020-07-02 16:54 | disposition home or self-care (01) ==
LOC: SDC 10:31
PROVIDERS: ATTEND Surgery
DX: K65.4 Sclerosing mesenteritis (principal); R10.31 Right lower quadrant pain; Z98.84 Bariatric surgery status
CPT/HCPCS: 81001; 87086; J1100; J1170; J1335; J1885; J2250; J2405; J2704; J3010

== ENCOUNTER 2020-11-06 17:00 | Emergency (ER) | payer MEDICAID ==
[2020-11-06 17:34] LABS: Absolute Neutrophil Ct (ANC) 5.26 (1.4-6.9); BASOPHIL % 0.2 % (0.0-0.4); Basophil (Absolute #) 0.02 (0-0.4); Eosinophil % 0.8 % (0.00-5.0); Eosinophil (Absolute #) 0.07 (0-0.5); Hemoglobin 11.7 gm/dl (12.0-16.0); INR 0.98 (0.8-3.0); Lymphocyte (Absolute #) 2.69 (1.0-4.6); Lymphocytes % 31.3 % (24.0-44.0); Mean Cell Volume 86.6 fl (78-100); Mean Corpuscular Hemoglobin 26.7 pg (26-32); Mean Corpuscular Hgb Concent. 30.8 g/dl (32-36); Mean Platelet Volume 11.1 fl (7.5-11.0); Monocyte (Absolute #) 0.56 (0.0-1.3); Monocytes % 6.5 % (0.0-12.0); Neutrophil % 61.2 % (36.0-66.0); PROTIME 11.6 SECONDS (9.4-12.5); Platelet Count 223 K/mm3 (150-450); Red Blood Count 4.39 M/mm3 (4.1-5.4); Red Cell Distribution Width 14.7 % (11.5-14.0); White Blood Count 8.6 K/mm3 (4.0-10.5)
[2020-11-06 17:37] LABS: PTT 29.5 SECONDS (25.1-36.5)
[2020-11-06 17:38] LABS: ALBUMIN 4.2 g/dL (3.5-5.0); ALKALINE PHOSPHATASE 85 U/L (38-126); ANION GAP 12.8 MEQ/L (5-15); BLOOD UREA NITROGEN 12 mg/dL (7-17); CHLORIDE 106 mmol/L (98-107); Calcium 9.1 mg/dL (8.4-10.2); Carbon Dioxide 24 mmol/L (22-30); Creatinine 1 0.62 mg/dL (0.52-1.04); EST GLOMERULAR FILTRATION RATE > 60.0 ML/MIN; Glucose 97 mg/dL (74-106); Potassium 4.2 mmol/L (3.5-5.1); SGOT/AST 25 U/L (14-36); SGPT/ALT 16 U/L (0-35); SODIUM 138 mmol/L (137-145); Total Protein 7.1 g/dL (6.3-8.2)
--- NOTE | 2020-11-06 17:50 | ERPHSYRPT ---
- History of Present Illness Historian: patient Exam Limitations: no limitations Patient Subjective Stated Complaint: " I had RSV two weeks ago, today I went to see my doctor and she told me to come to the ER today because I have had some left sided chest pains, nausea, and shortness of breath for the past three days." Triage Nursing Assessment: Pt presents to ER with complaints of nausea, shortness of breath, chest pains, and cough. Pt is alert and oriented x 3. Skin is pink, warm, and dry. Ambulates without difficulty. Complains of left sided upper chest pains since yesterday and states hurts to take a deep breath in. Pt respirations are slightly labored but lungs sound clear and equal throughout. Pt states nausea has been present for 3 days. Abdomen is soft and nontender. Physician History: 25 yo wf cc of mid/L sternal chest pain x 2 days which is sharp. Pain 7/10 and worse w deep breaths. She has mild dyspnea/diaphoresis/nausea w the pain. Pt has a h/o HTN/Hyperlipidemia and recently had RSV. She denies tobacco use/DM. Timing/Duration: day(s) (2 days) Activities at Onset: rest Quality: sharpness, stabbing Location: central Chest Pain Radiation: arm (L chest/L shoulder) Modifying Factors: Improves With: nothing, breathing. Worsens With: antacids, coughing, defecating, eating, exertion, lying down, morphine, movement, nitroglycerin, oxygen, palpation, rest, aspirin, sitting up, change in position Associated Symptoms: nausea, cough, diaphoresis, No vomiting, No palpitations, No heartburn, No abdominal pain, No shortness of breath, No hurts to breathe, No chills, No fever, No fatigue, No weakness, No swelling/lump in chest, No syncope, No rash, No headache, No dizziness, No edema, No back pain Prior Chest Pain/Cardiac Workup: no prior chest pain Nitro Today/Relief: no nitro taken today Aspirin Treatment Today: no aspirin today Allergies/Adverse Reactions: amitriptyline [From Elavil] Allergy (Verified 11/06/20 17:14) PT STATES MAKES HER GO "CRAZY AND WENT TO PSYCH DENT" amoxicillin [Amoxicillin] Allergy (Verified 11/06/20 17:14) metronidazole [From Flagyl] Allergy (Verified 11/06/20 17:14) Metronidazole HCl [From Flagyl] Allergy (Verified 11/06/20 17:14) ofloxacin [From Floxin] Allergy (Verified 11/06/20 17:14) Hcrrjhi-Uyc-Gno Reductase Inhibitor Allergy (Verified 11/06/20 17:14) caffeine Adverse Reaction (Verified 11/06/20 17:14) codeine Adverse Reaction (Verified 11/06/20 17:14) Hx Tetanus, Diphtheria Vaccination/Date Given: Yes Hx Influenza Vaccination/Date Given: Yes Hx Pneumococcal Vaccination/Date Given: No Immunizations Up to Date: Yes Travel Risk - International Travel Have you traveled outside of the country in past 3 weeks: No - Coronavirus Screening Are you exhibiting any of the following symptoms?: Yes Symptoms: Cough: New Onset, Shortness of Breath Close contact with a COVID-19 positive Pt in past 14-21 Days: No - Vaccine Status Have you recieved a Covid-19 vaccination: No - Review of Systems Constitutional: No Symptoms Eyes: No Symptoms Ears, Nose, & Throat: No Symptoms Respiratory: No Symptoms Cardiac: No Symptoms, Chest Pain Abdominal/Gastrointestinal: No Symptoms, Nausea Genitourinary Symptoms: No Symptoms Musculoskeletal: No Symptoms Skin: No Symptoms Neurological: No Symptoms Psychological: No Symptoms Endocrine: No Symptoms Hematologic/Lymphatic: No Symptoms Immunological/Allergic: No Symptoms - Past Medical History Pertinent Past Medical History: Yes Neurological History: No Pertinent History ENT History: No Pertinent History Cardiac History: High Cholesterol, Hypertension Respiratory History: No Pertinent History Endocrine Medical History: No Pertinent History Musculoskeletal History: No Pertinent History, Rheumatoid Arthritis GI Medical History: Other History: No Pertinent History Psycho-Social History: Anxiety, Bipolar, Depression Female Reproductive Disorders: No Pertinent History Other Medical History: LUPUS - Past Surgical History Past Surgical History: Yes Neuro Surgical History: No Pertinent History Cardiac: No Pertinent History Respiratory: No Pertinent History Gastrointestinal: Cholecystectomy Genitourinary: No Pertinent History Musculoskeletal: Orthopedic Surgery Female Surgical History: No Pertinent History Other Surgical History: EAR SURG (reconstruction , 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 ) FOOT SURGERY bilateral (implant to higher arch), bariatric surgery, ear tubes several times - Social History Smoking Status: Never smoker Exposure to second hand smoke: No Drug Use: none Patient Lives Alone: No Significant Family History: no pertinent family hx - Female History Hx Last Menstrual Period: 10/30/20 Hx Now: No - Nursing Vital Signs Nursing Vital Signs: Initial Vital Signs Temperature 98.1 F 11/06/20 17:02 Pulse Rate 70 11/06/20 17:02 Respiratory Rate 18 11/06/20 17:02 Blood Pressure 139/96 11/06/20 17:02 O2 Sat by Pulse Oximetry 100 11/06/20 17:02 Pain Scale Pain Intensity 6 Hypertensive - Physical Exam General Appearance: no apparent distress Eye Exam: PERRL/EOMI, eyes nml inspection Ears, Nose, Throat Exam: normal ENT inspection, TMs normal, pharynx normal, moist mucous membranes Neck Exam: normal inspection, non-tender, supple, full range of motion, No meningismus, No mass, No Brudzinski, No Kernig's, No carotid bruit Respiratory Exam: normal breath sounds, chest tenderness (L sternal margin TTP), lungs clear, airway intact, No respiratory distress Cardiovascular Exam: regular rate/rhythm, normal heart sounds, normal peripheral pulses, No murmur Gastrointestinal/Abdomen Exam: soft, normal bowel sounds, No tenderness Back Exam: normal inspection, normal range of motion, No CVA tenderness, No vertebral tenderness Extremity Exam: normal inspection, normal range of motion Neurologic Exam: alert, oriented x 3, cooperative, 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 as tested, normal mood/affect, nml cerebellar function, nml station & gait, sensation nml, No motor deficits, No sensory deficit Skin Exam: normal color, warm, dry Lymphatic Exam: No adenopathy SpO2 Interpretation: normal SpO2: 100 O2 Delivery: Room Air - Course Nursing assessment & vital signs reviewed: Yes EKG Interpreted by Me: RATE (NSR/R67/Normal QT-QTc/No acute ST-T wave changes) - Radiology Exams Chest X-ray Interpretation: Reviewed by me (CXR nad) Ordered Tests: Active Orders 24 hr Category Date Time Status EKG-ER Only STAT Care 11/06/20 17:12 Completed IV Insertion STAT Care 11/06/20 17:12 Completed CHEST 1 VIEW (PORTABLE) Stat Exams 11/06/20 17:12 Taken CBC W DIFF Stat Lab 11/06/20 17:00 Completed CMP Stat Lab 11/06/20 17:00 Completed D-DIMER QUANTITATIVE Stat Lab 11/06/20 17:00 Completed HCG QUALITATIVE,SERUM Stat Lab 11/06/20 17:00 Completed PROTIME WITH INR Stat Lab 11/06/20 17:00 Completed PTT Stat Lab 11/06/20 17:00 Completed TROPONIN Q3H Lab 11/06/20 17:00 Completed Medication Summary Discontinued Medications Generic Name Dose Route Start Last Admin Trade Name Emmy PRN Reason Stop Dose Admin Ketorolac Tromethamine 30 mg 11/06/20 18:20 11/06/20 18:23 Toradol 30 Mg Injection IV 11/06/20 18:21 30 mg STAT ONE Administration Ketorolac Tromethamine Confirm 11/06/20 18:22 Toradol 30 Mg Injection Administered 11/06/20 18:23 Dose 30 mg .ROUTE .[employer] ONE Lab/Rad Data: Laboratory Result Diagrams 11/06/20 17:00 11/06/20 17:00 Laboratory Results 11/06/20 11/06/20 11/06/20 Range/Units 17:00 17:00 17:00 WBC (4.0-10.5) K/mm3 RBC (4.1-5.4) M/mm3 Hgb (12.0-16.0) gm/dl Hct (35-47) % MCV (78-100) fl MCH (26-32) pg MCHC (32-36) g/dl RDW (11.5-14.0) % Plt Count (150-450) K/mm3 MPV (7.5-11.0) fl Gran % (36.0-66.0) % Eos # (Auto) (0-0.5) Absolute Lymphs (auto) (1.0-4.6) Absolute Monos (auto) (0.0-1.3) Lymphocytes % (24.0-44.0) % Monocytes % (0.0-12.0) % Eosinophils % (0.00-5.0) % Basophils % (0.0-0.4) % Absolute Granulocytes (1.4-6.9) Basophils # (0-0.4) PT 11.6 (9.4-12.5) SECONDS INR 0.98 (0.8-3.0) APTT 29.5 (25.1-36.5) SECONDS D-Dimer 370 (215-500) ng/mL Sodium (137-145) mmol/L Potassium (3.5-5.1) mmol/L Chloride (98-107) mmol/L Carbon Dioxide (22-30) mmol/L Anion Gap (5-15) MEQ/L BUN (7-17) mg/dL Creatinine (0.52-1.04) mg/dL Estimated GFR ML/MIN Glucose (74-106) mg/dL Calcium (8.4-10.2) mg/dL Total Bilirubin (0.2-1.3) mg/dL AST (14-36) U/L ALT (0-35) U/L Alkaline Phosphatase (38-126) U/L Troponin I < 0.012 (0.000-0.034) ng/mL Serum Total Protein (6.3-8.2) g/dL Albumin (3.5-5.0) g/dL Serum , Qual NEGATIVE (Negative) 11/06/20 11/06/20 Range/Units 17:00 17:00 WBC 8.6 (4.0-10.5) K/mm3 RBC 4.39 (4.1-5.4) M/mm3 Hgb 11.7 L (12.0-16.0) gm/dl Hct 38.0 (35-47) % MCV 86.6 (78-100) fl MCH 26.7 (26-32) pg MCHC 30.8 L (32-36) g/dl RDW 14.7 H (11.5-14.0) % Plt Count 223 (150-450) K/mm3 MPV 11.1 H (7.5-11.0) fl Gran % 61.2 (36.0-66.0) % Eos # (Auto) 0.07 (0-0.5) Absolute Lymphs (auto) 2.69 (1.0-4.6) Absolute Monos (auto) 0.56 (0.0-1.3) Lymphocytes % 31.3 (24.0-44.0) % Monocytes % 6.5 (0.0-12.0) % Eosinophils % 0.8 (0.00-5.0) % Basophils % 0.2 (0.0-0.4) % Absolute Granulocytes 5.26 (1.4-6.9) Basophils # 0.02 (0-0.4) PT (9.4-12.5) SECONDS INR (0.8-3.0) APTT (25.1-36.5) SECONDS D-Dimer (215-500) ng/mL Sodium 138 (137-145) mmol/L Potassium 4.2 (3.5-5.1) mmol/L Chloride 106 (98-107) mmol/L Carbon Dioxide 24 (22-30) mmol/L Anion Gap 12.8 (5-15) MEQ/L BUN 12 (7-17) mg/dL Creatinine 0.62 (0.52-1.04) mg/dL Estimated GFR > 60.0 ML/MIN Glucose 97 (74-106) mg/dL Calcium 9.1 (8.4-10.2) mg/dL Total Bilirubin 0.40 (0.2-1.3) mg/dL AST 25 (14-36) U/L ALT 16 (0-35) U/L Alkaline Phosphatase 85 (38-126) U/L Troponin I (0.000-0.034) ng/mL Serum Total Protein 7.1 (6.3-8.2) g/dL Albumin 4.2 (3.5-5.0) g/dL Serum , Qual (Negative) - Progress Progress Note: 11/06/20 18:20 30mg IV Toradol Counseled pt/family regarding: lab results, diagnosis, need for follow-up, rad results - Departure Departure Disposition: Home Clinical Impression: Chest pain, Pleurisy Condition: Stable Critical Care Time: No Referrals: HANNAH AMAYA [Primary Care Provider] - Instructions: Pleuritic Chest Pain, Chest Pain (DC) Additional Instructions: Motrin/Tylenol for pain Follow up with your family MD Return to ER for increasing pain or shortness of breath
[2020-11-06] MEDS ORDERED: TORAdol 30 mg Injection IV ONE (18:20)
[2020-11-06] MEDS ORDERED: TORAdol 30 mg Injection ONE (18:22)
[2020-11-06 18:28] VITALS: BP 148/89; PULSE 60
[2020-11-06 19:09] VITALS: O2SAT 100
--- NOTE | 2020-11-08 01:17 | XRAY ---
Exam: AP upright portable chest film from 11/06/2020. Comparison: Two-view chest from 04/25/2019. Indication: Chest pain and shortness of breath for one day; nonsmoker. Findings: It appears the patient has lost weight since the prior exam from 04/25/2019. Correlate clinically. The heart size and contour are normal. The esha and mediastinal structures appear unremarkable. A small calcified granuloma is seen within the right upper lung field. No infiltrates, vascular congestion, pneumothorax, or pleural fluid is seen. No acute osseous process is seen. Impression: 1. No infiltrates to suggest pneumonia, heart failure/pulmonary edema, or other acute cardiopulmonary disease is seen. This is unchanged from 04/25/2019.
== END 2020-11-06 18:34 | disposition home or self-care (01) ==
LOC: ED 17:00
DX: R07.9 Chest pain, unspecified (principal); R09.1 Pleurisy
CPT/HCPCS: 36000; 36415; 71045; 80053; 81025; 84484; 85025; 85379; 85610; 85730; 93005; 96374; 99284; J1885

== ENCOUNTER 2021-01-03 08:16 | Emergency (ER) | payer MEDICAID ==
[2021-01-03 08:39] LABS: Appearance CLOUDY (CLEAR); Bacteria MODERATE /HPF (NEGATIVE); Bilirubin NEGATIVE (NEGATIVE); Blood MODERATE Ery/ul (0-5); Epithelial Cells MODERATE /HPF (FEW); Glucose NEGATIVE (NEGATIVE); Ketones NEGATIVE (NEGATIVE); Leukocyte Esterase LARGE (NEGATIVE); Mucus SLIGHT /HPF (NEGATIVE); Nitrite NEGATIVE (NEGATIVE); Protein,Urine Dip 30 (Negative); RBC 51-100 /HPF (0-2); Specific Gravity 1.014 (1.005-1.025); Urobilinogen NEGATIVE mg/dL (0-1); WBC >100 /HPF (0-5)
[2021-01-03] MEDS ORDERED: TYLENOL 325 MG PO ONE (08:47)
--- NOTE | 2021-01-03 09:04 | ERPHSYRPT ---
- History of Present Illness Time Seen by Provider: 01/03/21 08:35 Source: patient Exam Limitations: no limitations Patient Subjective Stated Complaint: UTI symptoms Triage Nursing Assessment: Patient ambulated back to ED and transferred self to bed. Patient A+O X 3. Patient's skin pink, warm and dry. Patient states on thursday she started having abdominal bloating and discomfort then Thursday until now she started having urgency, frequency and pain upon urination. Patient complains of dull aching pain to lower back and sharp stabbing pain to lower abdominal/groin area. Patient states she urinated this am and noticed small blood clots when she wiped. Physician History: Patient is a 25-year-old female presents to our ED with a 3-day history of pelvic bloating sharp stabbing pain in the suprapubic region urinary frequency urgency dull low back pain and this morning observed small clots in the urine. Patient has a history of urinary tract infection. Patient states her symptoms are the same. No associated nausea vomiting or diaphoresis. No diarrhea. No rash. No fever no trauma. Symptoms are mild to moderate in intensity. Palpation to the suprapubic region reproduce symptoms. Patient states is otherw ise healthy. She voices no other complaints or concerns at this time. Timing/Duration: day(s) (3 days) Severity: moderate Modifying Factors: Improves With: nothing Associated Symptoms: chills, No nausea, No vomiting, No shortness of breath, No diaphoresis, No fever, No syncope, No seizure Allergies/Adverse Reactions: amitriptyline [From Elavil] Allergy (Verified 11/06/20 17:14) PT STATES MAKES HER GO "CRAZY AND WENT TO PSYCH DENT" amoxicillin [Amoxicillin] Allergy (Verified 11/06/20 17:14) metronidazole [From Flagyl] Allergy (Verified 11/06/20 17:14) Metronidazole HCl [From Flagyl] Allergy (Verified 11/06/20 17:14) ofloxacin [From Floxin] Allergy (Verified 11/06/20 17:14) Mvnmhkb-JRC-ThL Reductase Inhibitor [Lrcfqpq-Uyz-Hud Reductase Inhibitor] Allergy (Verified 11/06/20 17:14) caffeine Adverse Reaction (Verified 11/06/20 17:14) codeine Adverse Reaction (Verified 11/06/20 17:14) Home Medications: Gabapentin 100 mg [Neurontin 100 MG] 1 tab PO HS 01/03/21 [History] Trazodone HCl 50 mg PO HS 01/03/21 [History] Hx Tetanus, Diphtheria Vaccination/Date Given: Yes Hx Influenza Vaccination/Date Given: No Hx Pneumococcal Vaccination/Date Given: No Immunizations Up to Date: Yes Travel Risk - International Travel Have you traveled outside of the country in past 3 weeks: No - Coronavirus Screening Are you exhibiting any of the following symptoms?: No Close contact with a COVID-19 positive Pt in past 14-21 Days: No - Vaccine Status Have you recieved a Covid-19 vaccination: No - Review of Systems Constitutional: No Symptoms, No Fever, No Chills Eyes: No Symptoms Ears, Nose, & Throat: No Symptoms Respiratory: No Symptoms, No Cough, No Dyspnea Cardiac: No Symptoms, No Chest Pain, No Edema, No Syncope Abdominal/Gastrointestinal: No Symptoms, No Abdominal Pain, No Nausea, No Vomiting, No Diarrhea Genitourinary Symptoms: No Symptoms, No Dysuria Musculoskeletal: No Symptoms, No Back Pain, No Neck Pain Skin: No Symptoms, No Rash Neurological: No Symptoms, No Dizziness, No Focal Weakness, No Sensory Changes Psychological: No Symptoms Endocrine: No Symptoms Immunological/Allergic: No Symptoms All Other Systems: Reviewed and Negative - Past Medical History Pertinent Past Medical History: Yes Neurological History: No Pertinent History ENT History: No Pertinent History Cardiac History: High Cholesterol, Hypertension Respiratory History: No Pertinent History Endocrine Medical History: No Pertinent History Musculoskeletal History: No Pertinent History, Rheumatoid Arthritis GI Medical History: Other History: No Pertinent History Psycho-Social History: Anxiety, Bipolar, Depression Female Reproductive Disorders: No Pertinent History Other Medical History: LUPUS - Past Surgical History Past Surgical History: Yes Neuro Surgical History: No Pertinent History Cardiac: No Pertinent History Respiratory: No Pertinent History Gastrointestinal: Cholecystectomy Genitourinary: No Pertinent History Musculoskeletal: Orthopedic Surgery Female Surgical History: No Pertinent History Other Surgical History: EAR SURG (reconstruction , 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 ) FOOT SURGERY bilateral (implant to higher arch), bariatric surgery, ear tubes several times - Social History Smoking Status: Never smoker Exposure to second hand smoke: No Drug Use: none Patient Lives Alone: No Significant Family History: no pertinent family hx - Female History Hx Last Menstrual Period: December 16 Hx Now: No - Nursing Vital Signs Nursing Vital Signs: Initial Vital Signs Temperature 98.5 F 01/03/21 08:27 Pulse Rate 88 01/03/21 08:27 Respiratory Rate 18 01/03/21 08:27 Blood Pressure 142/101 01/03/21 08:27 O2 Sat by Pulse Oximetry 100 01/03/21 08:27 Pain Scale Pain Intensity 8 - Physical Exam General Appearance: no apparent distress, alert Eye Exam: PERRL/EOMI, eyes nml inspection Ears, Nose, Throat Exam: normal ENT inspection, TMs normal, pharynx normal, moist mucous membranes Neck Exam: normal inspection, non-tender, supple, full range of motion Respiratory Exam: normal breath sounds, lungs clear, airway intact, No respiratory distress Cardiovascular Exam: regular rate/rhythm, normal heart sounds, normal peripheral pulses Gastrointestinal/Abdomen Exam: soft, normal bowel sounds, other (Suprapubic tenderness to palpation. No CVA tenderness.), No tenderness, No mass Pelvic Exam: other (Suprapubic tenderness to palpation.) Back Exam: normal inspection, normal range of motion, No CVA tenderness, No vertebral tenderness Extremity Exam: normal inspection, normal range of motion, pelvis stable Neurologic Exam: alert, oriented x 3, cooperative, normal mood/affect, sensation nml, No motor deficits Skin Exam: normal color, warm, dry, No rash Lymphatic Exam: No adenopathy SpO2 Interpretation: normal SpO2: 100 O2 Delivery: Room Air - Course Nursing assessment & vital signs reviewed: Yes Ordered Tests: Active Orders 24 hr Category Date Time Status CULTURE,URINE Stat Lab 01/03/21 08:27 Received UA W/RFX UR CULTURE Stat Lab 01/03/21 08:27 Completed Medication Summary Discontinued Medications Generic Name Dose Route Start Last Admin Trade Name Emmy PRN Reason Stop Dose Admin Acetaminophen 975 mg 01/03/21 08:47 01/03/21 09:18 Acetaminophen 325 Mg Tablet PO 01/03/21 08:48 975 mg STAT ONE Administration Acetaminophen Confirm 01/03/21 09:18 Acetaminophen 325 Mg Tablet Administered 01/03/21 09:19 Dose 975 mg .ROUTE .STK-MED ONE Trimethoprim/Sulfamethoxazole 1 tab 01/03/21 09:27 Smz/Tmp Ds Tablet 1 Tablet PO 01/03/21 09:28 STAT STA Lab/Rad Data: Laboratory Results 10/14/21 Range/Units 08:27 Urine Color YELLOW (YELLOW) Urine Appearance CLOUDY (CLEAR) Urine pH 8.0 (5-6) Ur Specific [place] 1.014 (1.005-1.025) Urine Protein 30 (Negative) Urine Ketones NEGATIVE (NEGATIVE) Urine Blood MODERATE (0-5) Lon/ul Urine Nitrite NEGATIVE (NEGATIVE) Urine Bilirubin NEGATIVE (NEGATIVE) Urine Urobilinogen NEGATIVE (0-1) mg/dL Ur Leukocyte Esterase LARGE (NEGATIVE) Urine WBC (Auto) >100 (0-5) /HPF Urine RBC (Auto) 51-100 (0-2) /HPF U Epithel Cells (Auto) MODERATE (FEW) /HPF Urine Bacteria (Auto) MODERATE (NEGATIVE) /HPF Urine Mucus (Auto) SLIGHT (NEGATIVE) /HPF Urine Culture Reflexed YES (NO) Urine Glucose NEGATIVE (NEGATIVE) mg/dL - Progress Progress: improved Progress Note: Patient patient reassessed. Patient received Tylenol for pain control. He feels better. No active pain. Vital stable. UA reveals a UTI. Patient received Bactrim in our ED. A prescription for the same was forwarded to patient's pharmacy. Patient agrees to follow-up with primary care doctor within 48 hours for evaluation. She voices no other complaints concerns at this time. Portions of this note were created with voice recognition technology. There may be grammatical, spelling, punctuation or sound alike errors 01/03/21 09:30 Counseled pt/family regarding: lab results, diagnosis, need for follow-up - Departure Departure Disposition: Home Clinical Impression: UTI (urinary tract infection), Cystitis Condition: Stable Critical Care Time: No Referrals: HANNAH AMAYA [Primary Care Provider] - Additional Instructions: Discharge/Care Plan WILFREDO AVALOS was seen on 01/03/21 in the Emergency Room. The patient was counseled regarding Diagnosis,Lab results, Imaging studies, need for follow up and when to return to the Emergency Room. Prescriptions given: Discharge Note I have spoken with the patient and/or caregivers. I have explained the patient's condition, diagnosis and treatment plan based on the information available to me at this time. I have answered the patient's and/or caregiver's questions and addressed any concerns. The patient and/or caregivers have as good understanding of the patient's diagnosis, condition and treatment plan as can be expected at this point. The vital signs have been stable. The patient's condition is stable and appropriate for discharge from the emergency department. The patient will pursue further outpatient evaluation with the primary care physician or other designated or consulting physician as outlined in the discharge instructions. The patient and/or caregivers are agreeable to this plan of care and follow-up instructions have been explained in detail. The patient and/or caregivers have received these instruction. The patient/and or caregivers are aware that any significant change in condition or worsening of symptoms should prompt an immediate return to this or the closest emergency department or call 911. Prescriptions: Smz/Tmp Ds Tablet [Bactrim Ds Tablet] 1 udtab PO BID 7 Days #14 tablet
[2021-01-03] MEDS ORDERED: TYLENOL 325 MG ONE (09:18)
[2021-01-03] MEDS ORDERED: BACTRIM DS TABLET PO STA (09:27)
[2021-01-03 09:29] VITALS: BP 127/85; PULSE 65
[2021-01-03 09:32] VITALS: O2SAT 100
[2021-01-03] MEDS ORDERED: BACTRIM DS TABLET PO ONE ×2 (09:32→09:33)
== END 2021-01-03 09:50 | disposition home or self-care (01) ==
LOC: ED 08:16
DX: N30.90 Cystitis, unspecified without hematuria (principal)
CPT/HCPCS: 81001; 87077; 87086; 87186; 99283; A9270-GY

== ENCOUNTER 2021-01-24 20:38 | Emergency (ER) | payer MEDICAID ==
[2021-01-24 21:44] LABS: Appearance SLIGHTLY CLOUDY (CLEAR); Bacteria FEW /HPF (NEGATIVE); Bilirubin NEGATIVE (NEGATIVE); Blood MODERATE Ery/ul (0-5); Epithelial Cells RARE /HPF (FEW); Glucose NEGATIVE (NEGATIVE); Ketones NEGATIVE (NEGATIVE); Leukocyte Esterase TRACE (NEGATIVE); Mucus SLIGHT /HPF (NEGATIVE); Nitrite POSITIVE (NEGATIVE); Protein,Urine Dip 100 (Negative); RBC 26-50 /HPF (0-2); Specific Gravity 1.017 (1.005-1.025); Urobilinogen 2 mg/dL (0-1); WBC 26-50 /HPF (0-5)
[2021-01-24 22:22] VITALS: O2SAT 97
[2021-01-24] MEDS ORDERED: ROCEPHIN 1 Gm-D5w 50 ml Bag** 1 G/50 ML IVPB IV STA (22:25)
--- NOTE | 2021-01-24 22:25 | ERPHSYRPT ---
- History of Present Illness Time Seen by Provider: 01/24/21 21:15 Source: patient Exam Limitations: no limitations Patient Subjective Stated Complaint: Patient states she is having abdominal pain around her belly button. She indicates this has been going on for several days. States she was treated for a UTI several weeks ago and thought it was better but has now been noticing "small blood clots" in her urine today. States she called her bariatric surgery MD, Dr. Giraldo from [facility] to see if the pain could be related to her surgery from a year and a half ago but Dr. Giraldo's office didn't think it was related by the reports given to them by the patient during the phone call. Patient indicates that she then called her primary care physician's office, Dr. Sharon Amaya and it was recommended that she go the the ED. Triage Nursing Assessment: Patient ambulated back to ED without difficulties. She is alert and oriented and able to answer questions appropriately. Bowel sounds present. Patient grimacing and drawing up legs while in bed when nurse palpating abdomen around the umbilicus. Physician History: Patient is a 25-year-old female presents to our ED with complaints of suprapubic pain that radiates from the pubis to the umbilicus. Symptoms started approximately 3 days ago. Patient advises that she had a urinary tract infection about 3 weeks ago. Patient was initially treated with Macrobid. However upon culture patient was changed from Macrobid to Keflex. Patient states she has been doing well for the past 3 weeks up until a couple days ago when her symptoms reoccurred. Patient describes a tenderness in her suprapubic region. No radiation. Pain reproduced with palpation to the suprapubic region. Patient states she observed blood clots in her urine as well. Patient called her primary care doctor who advised her to come to the ED for an evaluation. Patient currently afebrile. No trauma. No nausea or vomiting. No diarrhea. No rash. Symptoms are mild to moderate in intensity. Patient advised that she has multiple medicine allergies. Patient otherwise voices no other complaints or concerns at this time. Patient denies the possibility of STI. No vaginal discharge. No vaginal pain. No foul-smelling odors per patient. Timing/Duration: day(s) (3 days) Severity: moderate Modifying Factors: Improves With: nothing Associated Symptoms: denies symptoms, No vomiting, No shortness of breath, No diaphoresis, No headaches, No loss of appetite, No syncope, No seizure Allergies/Adverse Reactions: amitriptyline [From Elavil] Allergy (Verified 01/24/21 21:28) PT STATES MAKES HER GO "CRAZY AND WENT TO PSYCH DENT" amoxicillin [Amoxicillin] Allergy (Verified 01/24/21 21:28) metronidazole [From Flagyl] Allergy (Verified 01/24/21:) Metronidazole HCl [From Flagyl] Allergy (Verified 01/24/21 21:28) nitrofurantoin [From Macrobid] Allergy (Verified 01/24/21 21:) ofloxacin [From Floxin] Allergy (Verified 01/24/21:) Ropoqiu-WDU-LbA Reductase Inhibitor [Yheqymm-Xkj-Fwn Reductase Inhibitor] Allergy (Verified 01/24/21:) caffeine Adverse Reaction (Verified 01/24/21:) codeine Adverse Reaction (Verified 01/24/21:) Home Medications: Gabapentin 100 mg [Neurontin 100 MG] 1 tab PO HS 01/03/21 [History] Trazodone HCl 50 mg PO HS 01/03/21 [History] Phenazopyridine HCl [Pyridium] 100 mg PO PRN 01/24/21 [History] Hx Tetanus, Diphtheria Vaccination/Date Given: Yes Hx Influenza Vaccination/Date Given: No Hx Pneumococcal Vaccination/Date Given: No Immunizations Up to Date: Yes Travel Risk - International Travel Have you traveled outside of the country in past 3 weeks: No - Coronavirus Screening Are you exhibiting any of the following symptoms?: No Close contact with a COVID-19 positive Pt in past 14-21 Days: No - Vaccine Status Have you recieved a Covid-19 vaccination: No - Review of Systems Constitutional: No Symptoms, No Fever, No Chills Eyes: No Symptoms Ears, Nose, & Throat: No Symptoms Respiratory: No Symptoms, No Cough, No Dyspnea Cardiac: No Symptoms, No Chest Pain, No Edema, No Syncope Abdominal/Gastrointestinal: No Symptoms, No Abdominal Pain, No Nausea, No Vomiting, No Diarrhea Genitourinary Symptoms: No Symptoms, No Dysuria Musculoskeletal: No Symptoms, No Back Pain, No Neck Pain Skin: No Symptoms, No Rash Neurological: No Symptoms, No Dizziness, No Focal Weakness, No Sensory Changes Psychological: No Symptoms Endocrine: No Symptoms Hematologic/Lymphatic: No Symptoms Immunological/Allergic: No Symptoms All Other Systems: Reviewed and Negative - Past Medical History Pertinent Past Medical History: Yes Neurological History: No Pertinent History ENT History: No Pertinent History Cardiac History: High Cholesterol, Hypertension Respiratory History: No Pertinent History Endocrine Medical History: No Pertinent History Musculoskeletal History: No Pertinent History, Rheumatoid Arthritis GI Medical History: Other History: No Pertinent History Psycho-Social History: Anxiety, Bipolar, Depression Female Reproductive Disorders: No Pertinent History Other Medical History: LUPUS - Past Surgical History Past Surgical History: Yes Neuro Surgical History: No Pertinent History Cardiac: No Pertinent History Respiratory: No Pertinent History Gastrointestinal: Cholecystectomy Genitourinary: No Pertinent History Musculoskeletal: Orthopedic Surgery Female Surgical History: No Pertinent History Other Surgical History: EAR SURG (reconstruction , 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 ) FOOT SURGERY bilateral (implant to higher arch), bariatric surgery, ear tubes several times - Social History Smoking Status: Never smoker Exposure to second hand smoke: No Drug Use: none Patient Lives Alone: No Significant Family History: no pertinent family hx - Female History Hx Last Menstrual Period: January 12, 2021 Hx Now: No - Nursing Vital Signs Nursing Vital Signs: Initial Vital Signs Temperature 98.5 F 01/24/21 21:09 Pulse Rate 83 01/24/21 21:09 Respiratory Rate 20 01/24/21 21:09 Blood Pressure 149/93 01/24/21 21:09 O2 Sat by Pulse Oximetry 99 01/24/21 21:09 Pain Scale Pain Intensity 9 - Physical Exam General Appearance: no apparent distress, alert Eye Exam: PERRL/EOMI, eyes nml inspection Ears, Nose, Throat Exam: normal ENT inspection, TMs normal, pharynx normal, moist mucous membranes Neck Exam: normal inspection, non-tender, supple, full range of motion Respiratory Exam: normal breath sounds, lungs clear, airway intact, No respiratory distress Cardiovascular Exam: regular rate/rhythm, normal heart sounds, normal peripheral pulses Gastrointestinal/Abdomen Exam: soft, normal bowel sounds, tenderness, other (Suprapubic tenderness to palpation.), No mass Back Exam: normal inspection, normal range of motion, No CVA tenderness, No vertebral tenderness Extremity Exam: normal inspection, normal range of motion, pelvis stable Neurologic Exam: alert, oriented x 3, cooperative, normal mood/affect, nml cerebellar function, nml station & gait, sensation nml, No motor deficits Skin Exam: normal color, warm, dry, No rash Lymphatic Exam: No adenopathy SpO2 Interpretation: normal SpO2: 97 O2 Delivery: Room Air - Course Nursing assessment & vital signs reviewed: Yes Ordered Tests: Active Orders 24 hr Category Date Time Status ABDOMEN AND PELVIS W/0 CONTRAS [CT] Stat Exams 01/24/21 21:20 Taken CULTURE,URINE Stat Lab 01/24/21 21:31 Received HCG,QUALITATIVE URINE Stat Lab 01/24/21 21:31 Completed UA W/RFX UR CULTURE Stat Lab 01/24/21 21:31 Completed Medication Summary Generic Name Dose Route Start Last Admin Trade Name Freq PRN Reason Stop Dose Admin Ceftriaxone Sodium/Dextrose 1 g in 50 mls @ 100 mls/hr 01/24/21 22:25 01/24/21 22:32 Rocephin 1 Gm-D5w 50 Ml Bag IV 01/24/21 22:54 100 mls/hr STAT STA 100 mls/hr Administration Discontinued Medications Generic Name Dose Route Start Last Admin Trade Name Freq PRN Reason Stop Dose Admin Ceftriaxone Sodium/Dextrose Confirm 01/24/21 22:27 Rocephin 1 Gm-D5w 50 Ml Bag Administered 01/24/21 22:28 Dose 1 g in 50 mls @ ud IV .STK-MED ONE Lab/Rad Data: Laboratory Results 01/24/21 01/24/21 Range/Units 21:31 21:31 Urine Color SHERICE (YELLOW) Urine Appearance SLIGHTLY CLOUDY (CLEAR) Urine pH 7.0 (5-6) Ur Specific [place] 1.017 (1.005-1.025) Urine Protein 100 (Negative) Urine Ketones NEGATIVE (NEGATIVE) Urine Blood MODERATE (0-5) Lon/ul Urine Nitrite POSITIVE (NEGATIVE) Urine Bilirubin NEGATIVE (NEGATIVE) Urine Urobilinogen 2 (0-1) mg/dL Ur Leukocyte Esterase TRACE (NEGATIVE) Urine WBC (Auto) 26-50 (0-5) /HPF Urine RBC (Auto) 26-50 (0-2) /HPF U Epithel Cells (Auto) RARE (FEW) /HPF Urine Bacteria (Auto) FEW (NEGATIVE) /HPF Urine Mucus (Auto) SLIGHT (NEGATIVE) /HPF Urine Culture Reflexed YES (NO) Urine Glucose NEGATIVE (NEGATIVE) mg/dL Urine HCG, Qual NEGATIVE (Negative) - Departure Departure Disposition: Home Clinical Impression: UTI (urinary tract infection) Condition: Stable Critical Care Time: No Referrals: HANNAH AMAYA [Primary Care Provider] - Follow up/PCP as directed Prescriptions: Cephalexin Mh 500 mg [Keflex 500 mg] 500 mg PO QID 5 Days #20 cap
[2021-01-24] MEDS ORDERED: ROCEPHIN 1 Gm-D5w 50 ml Bag** 1 G/50 ML IVPB IV ONE (22:27)
[2021-01-24 23:05] VITALS: BP 129/81; PULSE 79
--- NOTE | 2021-01-25 09:10 | XRAY ---
Indication: Abdomen and pelvic pain. Hematuria. UTI. Trouble urinating. History stones. Multiple contiguous axial images obtained through the abdomen and pelvis without contrast using renal stone protocol. Comparison: September 18, 2019. Lung bases are clear. Heart not enlarged. Again no renal calculus or evidence for obstructive uropathy in either system. There has been interval gastric bypass surgery. Noncontrasted stomach and bowel loops appear nonobstructed. Appendix not clearly visualized. Again previous cholecystectomy. No free fluid/air. Remaining liver, pancreas, spleen, adrenal glands, kidneys, ureters, bladder, uterus, and aorta appear unremarkable for noncontrast exam. Osseous structures intact again with mild thoracolumbar junction degenerative changes. No ventral or inguinal hernias. Impression: 1. Continued negative renal calculus or evidence for obstructive uropathy. 2. Interval gastric bypass surgery without complications. 3. Remaining CT abdomen/pelvis without contrast exam is negative.
== END 2021-01-24 23:17 | disposition home or self-care (01) ==
LOC: ED 20:38
DX: N39.0 Urinary tract infection, site not specified (principal)
CPT/HCPCS: 74176; 81001; 84703; 87086; 99284; J0696

== ENCOUNTER 2021-03-28 13:56 | Emergency (ER) | payer MEDICAID ==
--- NOTE | 2021-03-28 15:26 | ERPHSYRPT ---
- History of Present Illness Time Seen by Provider: 03/28/21 14:15 Source: patient Exam Limitations: no limitations Patient Subjective Stated Complaint: Right sided back pain Triage Nursing Assessment: Patient ambulated back to ED and transferred self to bed. Patient A+O X3. Patient's skin pink, warm and dry. Patient complains of right mid back pain that started yesterday 10/30. Patient denies injury to back. Patient states it hurts to take a deep breath. Lungs clear a/p jn. Physician History: 25 years old female with history of lupus, pleurisy presented in the ER from primary care office with chief complaint of right flank/right low back pain with radiation to right sacroiliac area moderate to severe intensity, sharp nature, more with activity and partial relief with applying topical analgesic. Also reports some suprapubic discomfort but no increased burning, urgency or frequency. No fever or chills reported. Denies any chest pain palpitations or shortness of breath. No fever or chills reported. Timing/Duration: yesterday, constant, gradual onset, worse Method of Injury: unknown Quality: sharp Back Pain Location: paraspinous muscles Severity of Pain-Max: severe Severity of Pain-Current: moderate Modifying Factors: Worsens With: movement Associated Symptoms: lower back pain Allergies/Adverse Reactions: amitriptyline [From Elavil] Allergy (Verified 03/28/21 14:14) PT STATES MAKES HER GO "CRAZY AND WENT TO PSYCH DENT" amoxicillin [Amoxicillin] Allergy (Verified 03/28/21 14:14) metronidazole [From Flagyl] Allergy (Verified 03/28/21 14:14) Metronidazole HCl [From Flagyl] Allergy (Verified 03/28/21 14:14) nitrofurantoin [From Macrobid] Allergy (Verified 03/28/21 14:14) ofloxacin [From Floxin] Allergy (Verified 03/28/21 14:14) Eexqrrq-JHW-DrI Reductase Inhibitor [Wbwkbcr-Rqo-Djy Reductase Inhibitor] Allergy (Verified 03/28/21 14:14) caffeine Adverse Reaction (Verified 03/28/21 14:14) codeine Adverse Reaction (Verified 03/28/21 14:14) Home Medications: Gabapentin 100 mg [Neurontin 100 MG] 1 tab PO HS 01/03/21 [History] Trazodone HCl 50 mg PO HS 01/03/21 [History] Hx Tetanus, Diphtheria Vaccination/Date Given: Yes Hx Influenza Vaccination/Date Given: No Hx Pneumococcal Vaccination/Date Given: No Immunizations Up to Date: Yes Travel Risk - International Travel Have you traveled outside of the country in past 3 weeks: No - Coronavirus Screening Are you exhibiting any of the following symptoms?: No Close contact with a COVID-19 positive Pt in past 14-21 Days: No - Vaccine Status Have you recieved a Covid-19 vaccination: No - Review of Systems Constitutional: No Symptoms Eyes: No Symptoms Ears, Nose, & Throat: No Symptoms Respiratory: No Symptoms Cardiac: No Symptoms Abdominal/Gastrointestinal: No Symptoms Genitourinary Symptoms: No Symptoms Musculoskeletal: Back Pain Skin: No Symptoms Neurological: No Symptoms Psychological: No Symptoms Endocrine: No Symptoms Hematologic/Lymphatic: No Symptoms Immunological/Allergic: No Symptoms - Past Medical History Pertinent Past Medical History: Yes Neurological History: No Pertinent History ENT History: No Pertinent History Cardiac History: High Cholesterol, Hypertension Respiratory History: No Pertinent History Endocrine Medical History: No Pertinent History Musculoskeletal History: No Pertinent History, Rheumatoid Arthritis GI Medical History: Other History: No Pertinent History Psycho-Social History: Anxiety, Bipolar, Depression Female Reproductive Disorders: No Pertinent History Other Medical History: LUPUS - Past Surgical History Past Surgical History: Yes Neuro Surgical History: No Pertinent History Cardiac: No Pertinent History Respiratory: No Pertinent History Gastrointestinal: Cholecystectomy Genitourinary: No Pertinent History Musculoskeletal: Orthopedic Surgery Female Surgical History: No Pertinent History Other Surgical History: EAR SURG (reconstruction , 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 ) FOOT SURGERY bilateral (implant to higher arch), bariatric surgery, ear tubes several times - Social History Smoking Status: Never smoker Exposure to second hand smoke: No Drug Use: none Patient Lives Alone: No Significant Family History: no pertinent family hx - Female History Hx Last Menstrual Period: 5 days ago Hx Now: (UNKN) - Nursing Vital Signs Nursing Vital Signs: Initial Vital Signs Temperature 98.2 F 03/28/21 14:15 Pulse Rate 72 03/28/21 14:15 Respiratory Rate 18 03/28/21 14:15 Blood Pressure 140/90 03/28/21 14:15 O2 Sat by Pulse Oximetry 100 03/28/21 14:15 Pain Scale Pain Intensity 8 - Physical Exam General Appearance: no apparent distress, alert Eye Exam: PERRL/EOMI, eyes nml inspection Ears, Nose, Throat Exam: normal ENT inspection Neck Exam: normal inspection, non-tender, supple, full range of motion Respiratory Exam: normal breath sounds, lungs clear, No chest tenderness Cardiovascular Exam: regular rate/rhythm, normal heart sounds Gastrointestinal Exam: soft, normal bowel sounds, tenderness (Minimal suprapubic) Back Exam: normal inspection, CVA tenderness (Right), muscle spasm (Right flank/back/sacroiliac area), No normal range of motion, No vertebral tenderness Extremity Exam: normal inspection, normal range of motion, pelvis stable Neurologic Exam: alert, oriented x 3, cooperative Skin Exam: normal color SpO2 Interpretation: normal SpO2: 100 O2 Delivery: Room Air Ordered Tests: Active Orders 24 hr Category Date Time Status NPO (ED) STAT Care 03/28/21 14:38 Active ABDOMEN AND PELVIS W/0 CONTRAS [CT] Stat Exams 03/28/21 14:38 Completed CBC W DIFF Stat Lab 03/28/21 15:50 Completed CMP Stat Lab 03/28/21 15:50 Completed HCG,QUALITATIVE URINE Stat Lab 03/28/21 14:43 Completed LIPASE Stat Lab 03/28/21 16:32 Completed UA W/RFX UR CULTURE Stat Lab 03/28/21 14:43 Completed Medication Summary Discontinued Medications Generic Name Dose Route Start Last Admin Trade Name Emmy PRN Reason Stop Dose Admin Ketorolac Tromethamine 30 mg 03/28/21 17:02 03/28/21 17:24 Ketorolac Tromethamine 30 Mg/Ml Inj IM 03/28/21 17:03 30 mg STAT ONE Administration Ketorolac Tromethamine Confirm 03/28/21 17:23 Ketorolac Tromethamine 30 Mg/Ml Inj Administered 03/28/21 17:24 Dose 30 mg .ROUTE .STK-MED ONE Orphenadrine Citrate 60 mg 03/28/21 17:02 03/28/21 17:25 Orphenadrine Citrate 60 Mg/2 Ml Amp IM 03/28/21 17:03 60 mg STAT ONE Administration Orphenadrine Citrate Confirm 03/28/21 17:23 Orphenadrine Citrate 60 Mg/2 Ml Amp Administered 03/28/21 17:24 Dose 60 mg .ROUTE .STK-MED ONE Lab/Rad Data: Laboratory Result Diagrams 03/28/21 15:50 03/28/21 15:50 Laboratory Results 03/28/21 03/28/21 03/28/21 Range/Units 16:32 15:50 15:50 WBC 6.3 (4.0-10.5) K/mm3 RBC 4.45 (4.1-5.4) M/mm3 Hgb 11.6 L (12.0-16.0) gm/dl Hct 38.2 (35-47) % MCV 85.8 (78-100) fl MCH 26.1 (26-32) pg MCHC 30.4 L (32-36) g/dl RDW 14.9 H (11.5-14.0) % Plt Count 201 (150-450) K/mm3 MPV 10.5 (7.5-11.0) fl Gran % 49.1 (36.0-66.0) % Eos # (Auto) 0.07 (0-0.5) Absolute Lymphs (auto) 2.72 (1.0-4.6) Absolute Monos (auto) 0.40 (0.0-1.3) Lymphocytes % 43.2 (24.0-44.0) % Monocytes % 6.4 (0.0-12.0) % Eosinophils % 1.1 (0.00-5.0) % Basophils % 0.2 (0.0-0.4) % Absolute Granulocytes 3.09 (1.4-6.9) Basophils # 0.01 (0-0.4) Sodium 138 (137-145) mmol/L Potassium 4.2 (3.5-5.1) mmol/L Chloride 106 (98-107) mmol/L Carbon Dioxide 27 (22-30) mmol/L Anion Gap 8.9 (5-15) MEQ/L BUN 8 (7-17) mg/dL Creatinine 0.66 (0.52-1.04) mg/dL Estimated GFR > 60.0 ML/MIN Glucose 93 (74-106) mg/dL Calcium 8.9 (8.4-10.2) mg/dL Total Bilirubin 0.60 (0.2-1.3) mg/dL AST 24 (14-36) U/L ALT 15 (0-35) U/L Alkaline Phosphatase 70 (38-126) U/L Serum Total Protein 6.7 (6.3-8.2) g/dL Albumin 4.0 (3.5-5.0) g/dL Lipase 78 (23-300) U/L Urine Color (YELLOW) Urine Appearance (CLEAR) Urine pH (5-6) Ur Specific [place] (1.005-1.025) Urine Protein (Negative) Urine Ketones (NEGATIVE) Urine Blood (0-5) Lon/ul Urine Nitrite (NEGATIVE) Urine Bilirubin (NEGATIVE) Urine Urobilinogen (0-1) mg/dL Ur Leukocyte Esterase (NEGATIVE) Urine WBC (Auto) (0-5) /HPF Urine RBC (Auto) (0-2) /HPF U Epithel Cells (Auto) (FEW) /HPF Urine Bacteria (Auto) (NEGATIVE) /HPF Urine Culture Reflexed (NO) Urine Glucose (NEGATIVE) mg/dL Urine HCG, Qual (Negative) 03/28/21 03/28/21 Range/Units 14:43 14:43 WBC (4.0-10.5) K/mm3 RBC (4.1-5.4) M/mm3 Hgb (12.0-16.0) gm/dl Hct (35-47) % MCV (78-100) fl MCH (26-32) pg MCHC (32-36) g/dl RDW (11.5-14.0) % Plt Count (150-450) K/mm3 MPV (7.5-11.0) fl Gran % (36.0-66.0) % Eos # (Auto) (0-0.5) Absolute Lymphs (auto) (1.0-4.6) Absolute Monos (auto) (0.0-1.3) Lymphocytes % (24.0-44.0) % Monocytes % (0.0-12.0) % Eosinophils % (0.00-5.0) % Basophils % (0.0-0.4) % Absolute Granulocytes (1.4-6.9) Basophils # (0-0.4) Sodium (137-145) mmol/L Potassium (3.5-5.1) mmol/L Chloride (98-107) mmol/L Carbon Dioxide (22-30) mmol/L Anion Gap (5-15) MEQ/L BUN (7-17) mg/dL Creatinine (0.52-1.04) mg/dL Estimated GFR ML/MIN Glucose (74-106) mg/dL Calcium (8.4-10.2) mg/dL Total Bilirubin (0.2-1.3) mg/dL AST (14-36) U/L ALT (0-35) U/L Alkaline Phosphatase (38-126) U/L Serum Total Protein (6.3-8.2) g/dL Albumin (3.5-5.0) g/dL Lipase (23-300) U/L Urine Color YELLOW (YELLOW) Urine Appearance CLEAR (CLEAR) Urine pH 7.0 (5-6) Ur Specific [place] 1.012 (1.005-1.025) Urine Protein NEGATIVE (Negative) Urine Ketones NEGATIVE (NEGATIVE) Urine Blood NEGATIVE (0-5) Lon/ul Urine Nitrite NEGATIVE (NEGATIVE) Urine Bilirubin NEGATIVE (NEGATIVE) Urine Urobilinogen NEGATIVE (0-1) mg/dL Ur Leukocyte Esterase NEGATIVE (NEGATIVE) Urine WBC (Auto) NONE (0-5) /HPF Urine RBC (Auto) NONE (0-2) /HPF U Epithel Cells (Auto) RARE (FEW) /HPF Urine Bacteria (Auto) NONE (NEGATIVE) /HPF Urine Culture Reflexed NO (NO) Urine Glucose NEGATIVE (NEGATIVE) mg/dL Urine HCG, Qual NEGATIVE (Negative) - Progress Progress: improved, re-examined Progress Note: 03/28/21 17:40 She is given symptomatic treatment for pain as it seems more of a musculoskeletal. Acute abdomen work-up negative including CT abdomen pelvis without contrast. No UTI. We'll give her muscle relaxants and NSAIDs to go home. Outpatient follow-up recommended. Counseled pt/family regarding: lab results, diagnosis, need for follow-up, rad results - Departure Departure Disposition: Home Clinical Impression: Right flank pain Low back pain Qualifiers: Chronicity: acute Back pain laterality: right Sciatica presence: without sciatica Qualified Code(s): M54.50 - Low back pain, unspecified Condition: Stable Critical Care Time: No Referrals: HANNAH AMAYA [Primary Care Provider] - Follow up/PCP as directed (In 2 days for reevaluation) Instructions: Low Back Pain (DC) Additional Instructions: Take pain medications as needed. Follow-up with primary care for reevaluation. Return to ER for worsening pain, difficulty ambulation or if pain starts going down your extremities, loss of bowel or bladder control, numbness weakness of extremities. Prescriptions: Ibuprofen 600 mg PO Q6HPRN PRN 10 Days #20 tablet PRN Reason: Pain Cyclobenzaprine HCl 10 mg [Flexeril 10 MG] 10 mg PO TID #12 tablet
[2021-03-28 16:04] LABS: Appearance CLEAR (CLEAR); Bilirubin NEGATIVE (NEGATIVE); Blood NEGATIVE Ery/ul (0-5); Epithelial Cells RARE /HPF (FEW); Glucose NEGATIVE (NEGATIVE); Ketones NEGATIVE (NEGATIVE); Leukocyte Esterase NEGATIVE (NEGATIVE); Nitrite NEGATIVE (NEGATIVE); Protein,Urine Dip NEGATIVE (Negative); Specific Gravity 1.012 (1.005-1.025); Urobilinogen NEGATIVE mg/dL (0-1)
[2021-03-28 16:06] LABS: Absolute Neutrophil Ct (ANC) 3.09 (1.4-6.9); Basophil (Absolute #) 0.01 (0-0.4); Eosinophil % 1.1 % (0.00-5.0); Eosinophil (Absolute #) 0.07 (0-0.5); Hematocrit 38.2 % (35-47); Hemoglobin 11.6 gm/dl (12.0-16.0); Lymphocyte (Absolute #) 2.72 (1.0-4.6); Lymphocytes % 43.2 % (24.0-44.0); Mean Cell Volume 85.8 fl (78-100); Mean Corpuscular Hemoglobin 26.1 pg (26-32); Mean Corpuscular Hgb Concent. 30.4 g/dl (32-36); Mean Platelet Volume 10.5 fl (7.5-11.0); Monocytes % 6.4 % (0.0-12.0); Neutrophil % 49.1 % (36.0-66.0); Platelet Count 201 K/mm3 (150-450); Red Blood Count 4.45 M/mm3 (4.1-5.4); Red Cell Distribution Width 14.9 % (11.5-14.0); White Blood Count 6.3 K/mm3 (4.0-10.5)
[2021-03-28 16:48] LABS: ALKALINE PHOSPHATASE 70 U/L (38-126); ANION GAP 8.9 MEQ/L (5-15); BLOOD UREA NITROGEN 8 mg/dL (7-17); CHLORIDE 106 mmol/L (98-107); Calcium 8.9 mg/dL (8.4-10.2); Carbon Dioxide 27 mmol/L (22-30); Creatinine 1 0.66 mg/dL (0.52-1.04); EST GLOMERULAR FILTRATION RATE > 60.0 ML/MIN; Glucose 93 mg/dL (74-106); Potassium 4.2 mmol/L (3.5-5.1); SGOT/AST 24 U/L (14-36); SGPT/ALT 15 U/L (0-35); SODIUM 138 mmol/L (137-145); Total Protein 6.7 g/dL (6.3-8.2)
--- NOTE | 2021-03-28 16:52 | XRAY ---
Indication: Right flank pain. Nausea. Multiple contiguous axial images obtained through abdomen and pelvis without contrast. Comparison: January 24, 2021. Lung bases remain clear. Heart not enlarged. Again previous gastric bypass surgery. Noncontrasted stomach and bowel loops nonobstructed. Appendix not seen. Again previous cholecystectomy. No free fluid/air. Remaining liver, pancreas, spleen, adrenal glands, kidneys, ureters, bladder, uterus, and aorta are unremarkable for noncontrast exam. Osseous structures intact again with minimal degenerative changes throughout the spine. No ventral or inguinal hernias. Impression: Continued negative CT abdomen/pelvis without contrast exam.
[2021-03-28] MEDS ORDERED: Norflex 60 MG/2 ML IM ONE (17:02)
[2021-03-28] MEDS ORDERED: TORAdol 30 mg Injection IM ONE (17:02)
[2021-03-28] MEDS ORDERED: Norflex 60 MG/2 ML ONE (17:23)
[2021-03-28] MEDS ORDERED: TORAdol 30 mg Injection ONE (17:23)
[2021-03-28 18:17] VITALS: BP 125/76; PULSE 88; O2SAT 97
== END 2021-03-28 18:18 | disposition home or self-care (01) ==
LOC: ED 13:56
DX: M54.50 Low back pain, unspecified (principal); R10.30 Lower abdominal pain, unspecified; E78.5 Hyperlipidemia, unspecified; I10 Essential (primary) hypertension; M32.9 Systemic lupus erythematosus, unspecified
CPT/HCPCS: 36415; 74176; 80053; 81001; 83690; 84703; 85025; 96372; 99284; J1885; J2360

== ENCOUNTER 2021-07-25 21:25 | Emergency (ER) | payer MEDICAID ==
[2021-07-25 22:01] LABS: Absolute Neutrophil Ct (ANC) 5.16 (1.4-6.9); Basophil (Absolute #) 0.03 (0-0.4); Eosinophil % 0.9 % (0.00-5.0); Eosinophil (Absolute #) 0.09 (0-0.5); Hematocrit 36.7 % (35-47); Hemoglobin 11.5 gm/dl (12.0-16.0); Lymphocyte (Absolute #) 3.61 (1.0-4.6); Mean Cell Volume 86.8 fl (78-100); Mean Corpuscular Hemoglobin 27.2 pg (26-32); Mean Corpuscular Hgb Concent. 31.3 g/dl (32-36); Mean Platelet Volume 10.9 fl (7.5-11.0); Monocyte (Absolute #) 0.61 (0.0-1.3); Monocytes % 6.4 % (0.0-12.0); Neutrophil % 54.4 % (36.0-66.0); Platelet Count 239 K/mm3 (150-450); Red Blood Count 4.23 M/mm3 (4.1-5.4); Red Cell Distribution Width 14.9 % (11.5-14.0); White Blood Count 9.5 K/mm3 (4.0-10.5)
[2021-07-25 22:12] LABS: ALBUMIN 4.3 g/dL (3.5-5.0); ALKALINE PHOSPHATASE 79 U/L (38-126); ANION GAP 14.2 MEQ/L (5-15); BLOOD UREA NITROGEN 14 mg/dL (7-17); CHLORIDE 107 mmol/L (98-107); Carbon Dioxide 21 mmol/L (22-30); Creatinine 1 0.64 mg/dL (0.52-1.04); EST GLOMERULAR FILTRATION RATE > 60.0 ML/MIN; Glucose 87 mg/dL (74-106); Potassium 3.8 mmol/L (3.5-5.1); SGOT/AST 29 U/L (14-36); SGPT/ALT 21 U/L (0-35); SODIUM 138 mmol/L (137-145); Total Protein 7.2 g/dL (6.3-8.2)
[2021-07-25 23:37] VITALS: O2SAT 98
--- NOTE | 2021-07-25 23:59 | ERPHSYRPT ---
- History of Present Illness Time Seen by Provider: 07/25/21 21:45 Historian: patient Exam Limitations: no limitations Patient Subjective Stated Complaint: pt states she has dental work today and is now experiencing chest pain that has been present for 15 minutes, startes she is scared that something is wrong because she has had endocarditis, she has lupus. Triage Nursing Assessment: pt is holding chest, appears pale, states that she is scared that there may be something going on. pt is 100 % on room air and 146/96 bp. temp 99.1. siobhan is at bedside says she has not been herself today, very tired and "out of it". Physician History: Patient is a 26-year-old female presents to our ED for evaluation of chest pain. Patient states she was having dental work today. Patient later developed chest pain. Chest pain was substernal. Pain lasted approximately 15 minutes. Pain improved. Patient states he has a history of lupus and endocarditis. Patient worried that she may be developing endocarditis. No trauma. No fever. No nausea vomiting or diaphoresis. Symptoms are mild to moderate in intensity. No specific worsening or improving factors. Patient otherwise healthy. Patient voices no other complaints or concerns at this time. Timing/Duration: today Activities at Onset: none Quality: aching Location: substernal Chest Pain Radiation: no radiation Severity of Pain-Max: moderate Severity of Pain-Current: mild Modifying Factors: Improves With: nothing Associated Symptoms: denies symptoms Nitro Today/Relief: no nitro taken today Aspirin Treatment Today: no aspirin today Allergies/Adverse Reactions: amitriptyline [From Elavil] Allergy (Verified 07/25/21 21:52) PT STATES MAKES HER GO "CRAZY AND WENT TO PSYCH DENT" amoxicillin [Amoxicillin] Allergy (Verified 07/25/21 21:52) metronidazole [From Flagyl] Allergy (Verified 07/25/21 21:52) Metronidazole HCl [From Flagyl] Allergy (Verified 07/25/21 21:52) morphine Allergy (Verified 07/25/21 21:53) nitrofurantoin [From Macrobid] Allergy (Verified 07/25/21 21:52) ofloxacin [From Floxin] Allergy (Verified 07/25/21 21:52) Kivjdyw-NHE-OaW Reductase Inhibitor [Phmbiok-Wqh-Ztv Reductase Inhibitor] Allergy (Verified 07/25/21 21:52) caffeine Adverse Reaction (Verified 07/25/21 21:52) codeine Adverse Reaction (Verified 07/25/21 21:52) Home Medications: Gabapentin 100 mg [Neurontin 100 MG] 1 tab PO HS 01/03/21 [History] Trazodone HCl 50 mg PO HS 01/03/21 [History] Hx Tetanus, Diphtheria Vaccination/Date Given: No Hx Influenza Vaccination/Date Given: No Hx Pneumococcal Vaccination/Date Given: No Immunizations Up to Date: No Travel Risk - International Travel Have you traveled outside of the country in past 3 weeks: No - Coronavirus Screening Are you exhibiting any of the following symptoms?: No Close contact with a COVID-19 positive Pt in past 14-21 Days: No - Vaccine Status Have you recieved a Covid-19 vaccination: No - Review of Systems Constitutional: No Symptoms, No Fever, No Chills Eyes: No Symptoms Ears, Nose, & Throat: No Symptoms Respiratory: No Symptoms, No Cough, No Dyspnea Cardiac: No Symptoms, No Chest Pain, No Edema, No Syncope Abdominal/Gastrointestinal: No Symptoms, No Abdominal Pain, No Nausea, No Vomiting, No Diarrhea Genitourinary Symptoms: No Symptoms, No Dysuria Musculoskeletal: No Symptoms, No Back Pain, No Neck Pain Skin: No Symptoms, No Rash Neurological: No Symptoms, No Dizziness, No Focal Weakness, No Sensory Changes Psychological: No Symptoms Endocrine: No Symptoms Hematologic/Lymphatic: No Symptoms Immunological/Allergic: No Symptoms All Other Systems: Reviewed and Negative - Past Medical History Pertinent Past Medical History: Yes Neurological History: No Pertinent History ENT History: No Pertinent History Cardiac History: High Cholesterol, Hypertension Respiratory History: No Pertinent History Endocrine Medical History: No Pertinent History Musculoskeletal History: No Pertinent History, Rheumatoid Arthritis GI Medical History: Other History: No Pertinent History Psycho-Social History: Anxiety, Bipolar, Depression Female Reproductive Disorders: No Pertinent History Other Medical History: LUPUS, endocarditis - Past Surgical History Past Surgical History: Yes Neuro Surgical History: No Pertinent History Cardiac: No Pertinent History Respiratory: No Pertinent History Gastrointestinal: Cholecystectomy Genitourinary: No Pertinent History Musculoskeletal: Orthopedic Surgery Female Surgical History: No Pertinent History Other Surgical History: EAR SURG (reconstruction , 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 ) FOOT SURGERY bilateral (implant to higher arch), bariatric surgery, ear tubes several times - Social History Smoking Status: Never smoker Exposure to second hand smoke: No Drug Use: none Patient Lives Alone: No Significant Family History: no pertinent family hx - Female History Hx Last Menstrual Period: 07/25/21 Hx Now: No - Nursing Vital Signs Nursing Vital Signs: Initial Vital Signs Temperature 99.1 F 07/25/21 21:36 Pulse Rate 66 07/25/21 21:36 Respiratory Rate 18 07/25/21 21:36 O2 Sat by Pulse Oximetry 100 07/25/21 21:36 Pain Scale Pain Intensity 8 - Physical Exam General Appearance: no apparent distress, alert Eye Exam: PERRL/EOMI, eyes nml inspection Ears, Nose, Throat Exam: normal ENT inspection, TMs normal, pharynx normal, moist mucous membranes Neck Exam: normal inspection, non-tender, supple, full range of motion Respiratory Exam: normal breath sounds, lungs clear, airway intact, No respiratory distress Cardiovascular Exam: regular rate/rhythm, normal heart sounds, normal peripheral pulses Gastrointestinal/Abdomen Exam: soft, normal bowel sounds, No tenderness, No mass Back Exam: normal inspection, normal range of motion, No CVA tenderness, No vertebral tenderness Extremity Exam: normal inspection, normal range of motion Neurologic Exam: alert, oriented x 3, cooperative, normal mood/affect, sensation nml, No motor deficits Skin Exam: normal color, warm, dry SpO2 Interpretation: normal SpO2: 98 O2 Delivery: Room Air - Course Nursing assessment & vital signs reviewed: Yes EKG Interpreted by Me: RATE (71), Sinus Rhythm, NORMAL AXIS, NORMAL INTERVALS - Radiology Exams Chest X-ray Interpretation: Interpreted by me Ordered Tests: Active Orders 24 hr Category Date Time Status Animal Geneticist STAT Care 07/25/21 21:40 Active EKG-ER Only STAT Care 07/25/21 21:40 Active IV Insertion STAT Care 07/25/21 21:40 Active Pulse Oximetry (ED) STAT Care 07/25/21 21:40 Active CHEST 1 VIEW (PORTABLE) Stat Exams 07/25/21 21:58 Taken CBC W DIFF Stat Lab 07/25/21 21:56 Completed CMP Stat Lab 07/25/21 21:56 Completed D-DIMER QUANTITATIVE Stat Lab 07/25/21 21:56 Completed TROPONIN Q3H Lab 07/25/21 21:56 Completed TROPONIN Q3H Lab 07/26/21 00:20 Completed TROPONIN Q3H Lab 07/26/21 03:45 Ordered TROPONIN Q3H Lab 07/26/21 06:45 Ordered TROPONIN Q3H Lab 07/26/21 09:45 Ordered UA W/RFX CULTURE Stat Lab 07/26/21 00:07 Completed Urine Triage Profile Stat Lab 07/26/21 00:04 Completed Medication Summary Discontinued Medications Generic Name Dose Route Start Last Admin Trade Name Emmy PRN Reason Stop Dose Admin Meclizine HCl 25 mg 07/26/21 01:26 07/26/21 01:28 Meclizine Hcl 25 Mg Tablet PO 07/26/21 01:27 25 mg STAT ONE Administration Meclizine HCl Confirm 07/26/21 01:27 Meclizine Hcl 25 Mg Tablet Administered 07/26/21 01:28 Dose 25 mg .ROUTE .STApture-MED ONE Lab/Rad Data: Laboratory Result Diagrams 07/25/21 21:56 07/25/21 21:56 Laboratory Results 07/26/21 07/26/21 07/26/21 Range/Units 00:20 00:07 00:04 WBC (4.0-10.5) K/mm3 RBC (4.1-5.4) M/mm3 Hgb (12.0-16.0) gm/dl Hct (35-47) % MCV (78-100) fl MCH (26-32) pg MCHC (32-36) g/dl RDW (11.5-14.0) % Plt Count (150-450) K/mm3 MPV (7.5-11.0) fl Gran % (36.0-66.0) % Eos # (Auto) (0-0.5) Absolute Lymphs (auto) (1.0-4.6) Absolute Monos (auto) (0.0-1.3) Lymphocytes % (24.0-44.0) % Monocytes % (0.0-12.0) % Eosinophils % (0.00-5.0) % Basophils % (0.0-0.4) % Absolute Granulocytes (1.4-6.9) Basophils # (0-0.4) D-Dimer (215-500) ng/mL Sodium (137-145) mmol/L Potassium (3.5-5.1) mmol/L Chloride (98-107) mmol/L Carbon Dioxide (22-30) mmol/L Anion Gap (5-15) MEQ/L BUN (7-17) mg/dL Creatinine (0.52-1.04) mg/dL Estimated GFR ML/MIN Glucose (74-106) mg/dL Calcium (8.4-10.2) mg/dL Total Bilirubin (0.2-1.3) mg/dL AST (14-36) U/L ALT (0-35) U/L Alkaline Phosphatase (38-126) U/L Troponin I < 0.012 (0.000-0.034) ng/mL Serum Total Protein (6.3-8.2) g/dL Albumin (3.5-5.0) g/dL Urinalys Dipstick Clnc MAIN LAB Urine Color YELLOW (YELLOW) Urine Appearance CLEAR (CLEAR) Urine pH 6.0 (5-6) Ur Specific [place] >=1.030 (1.005-1.025) POC Urine Protein Conf NEGATIVE (Negative) Urine Ketones NEGATIVE (NEGATIVE) Urine Nitrite NEGATIVE (NEGATIVE) Urine Bilirubin NEGATIVE (NEGATIVE) Urine Urobilinogen 0.2 (0-1) mg/dL Urine Leukocytes NEGATIVE (NEGATIVE) Urine WBC (Auto) NONE (0-5) /HPF Urine RBC (Auto) NONE (0-2) /HPF U Epithel Cells (Auto) NONE (FEW) /HPF Urine Bacteria (Auto) NONE (NEGATIVE) /HPF Urine RBC NEGATIVE (0-5) Lon/ul Urine Mucus (Auto) SLIGHT (NEGATIVE) /HPF Ur Culture Indicated? NO Urine Glucose NEGATIVE (NEGATIVE) mg/dL Urine Opiates Level NEGATIVE (NEGATIVE) Ur Methadone NEGATIVE (NEGATIVE) Urine Barbiturates NEGATIVE (NEGATIVE) Ur Phencyclidine (PCP) NEGATIVE (NEGATIVE) Urine Amphetamine NEGATIVE (NEGATIVE) U Benzodiazepine Level NEGATIVE (NEGATIVE) Urine Cocaine NEGATIVE (NEGATIVE) Urine Marijuana (THC) NEGATIVE (NEGATIVE) 07/25/21 07/25/21 07/25/21 Range/Units 21:56 21:56 21:56 WBC (4.0-10.5) K/mm3 RBC (4.1-5.4) M/mm3 Hgb (12.0-16.0) gm/dl Hct (35-47) % MCV (78-100) fl MCH (26-32) pg MCHC (32-36) g/dl RDW (11.5-14.0) % Plt Count (150-450) K/mm3 MPV (7.5-11.0) fl Gran % (36.0-66.0) % Eos # (Auto) (0-0.5) Absolute Lymphs (auto) (1.0-4.6) Absolute Monos (auto) (0.0-1.3) Lymphocytes % (24.0-44.0) % Monocytes % (0.0-12.0) % Eosinophils % (0.00-5.0) % Basophils % (0.0-0.4) % Absolute Granulocytes (1.4-6.9) Basophils # (0-0.4) D-Dimer 354 (215-500) ng/mL Sodium 138 (137-145) mmol/L Potassium 3.8 (3.5-5.1) mmol/L Chloride 107 (98-107) mmol/L Carbon Dioxide 21 L (22-30) mmol/L Anion Gap 14.2 (5-15) MEQ/L BUN 14 (7-17) mg/dL Creatinine 0.64 (0.52-1.04) mg/dL Estimated GFR > 60.0 ML/MIN Glucose 87 (74-106) mg/dL Calcium 9.0 (8.4-10.2) mg/dL Total Bilirubin 0.40 (0.2-1.3) mg/dL AST 29 (14-36) U/L ALT 21 (0-35) U/L Alkaline Phosphatase 79 (38-126) U/L Troponin I < 0.012 (0.000-0.034) ng/mL Serum Total Protein 7.2 (6.3-8.2) g/dL Albumin 4.3 (3.5-5.0) g/dL Urinalys Dipstick Clnc Urine Color (YELLOW) Urine Appearance (CLEAR) Urine pH (5-6) Ur Specific [place] (1.005-1.025) POC Urine Protein Conf (Negative) Urine Ketones (NEGATIVE) Urine Nitrite (NEGATIVE) Urine Bilirubin (NEGATIVE) Urine Urobilinogen (0-1) mg/dL Urine Leukocytes (NEGATIVE) Urine WBC (Auto) (0-5) /HPF Urine RBC (Auto) (0-2) /HPF U Epithel Cells (Auto) (FEW) /HPF Urine Bacteria (Auto) (NEGATIVE) /HPF Urine RBC (0-5) Lon/ul Urine Mucus (Auto) (NEGATIVE) /HPF Ur Culture Indicated? Urine Glucose (NEGATIVE) mg/dL Urine Opiates Level (NEGATIVE) Ur Methadone (NEGATIVE) Urine Barbiturates (NEGATIVE) Ur Phencyclidine (PCP) (NEGATIVE) Urine Amphetamine (NEGATIVE) U Benzodiazepine Level (NEGATIVE) Urine Cocaine (NEGATIVE) Urine Marijuana (THC) (NEGATIVE) 07/25/21 Range/Units 21:56 WBC 9.5 (4.0-10.5) K/mm3 RBC 4.23 (4.1-5.4) M/mm3 Hgb 11.5 L (12.0-16.0) gm/dl Hct 36.7 (35-47) % MCV 86.8 (78-100) fl MCH 27.2 (26-32) pg MCHC 31.3 L (32-36) g/dl RDW 14.9 H (11.5-14.0) % Plt Count 239 (150-450) K/mm3 MPV 10.9 (7.5-11.0) fl Gran % 54.4 (36.0-66.0) % Eos # (Auto) 0.09 (0-0.5) Absolute Lymphs (auto) 3.61 (1.0-4.6) Absolute Monos (auto) 0.61 (0.0-1.3) Lymphocytes % 38.0 (24.0-44.0) % Monocytes % 6.4 (0.0-12.0) % Eosinophils % 0.9 (0.00-5.0) % Basophils % 0.3 (0.0-0.4) % Absolute Granulocytes 5.16 (1.4-6.9) Basophils # 0.03 (0-0.4) D-Dimer (215-500) ng/mL Sodium (137-145) mmol/L Potassium (3.5-5.1) mmol/L Chloride (98-107) mmol/L Carbon Dioxide (22-30) mmol/L Anion Gap (5-15) MEQ/L BUN (7-17) mg/dL Creatinine (0.52-1.04) mg/dL Estimated GFR ML/MIN Glucose (74-106) mg/dL Calcium (8.4-10.2) mg/dL Total Bilirubin (0.2-1.3) mg/dL AST (14-36) U/L ALT (0-35) U/L Alkaline Phosphatase (38-126) U/L Troponin I (0.000-0.034) ng/mL Serum Total Protein (6.3-8.2) g/dL Albumin (3.5-5.0) g/dL Urinalys Dipstick Clnc Urine Color (YELLOW) Urine Appearance (CLEAR) Urine pH (5-6) Ur Specific [place] (1.005-1.025) POC Urine Protein Conf (Negative) Urine Ketones (NEGATIVE) Urine Nitrite (NEGATIVE) Urine Bilirubin (NEGATIVE) Urine Urobilinogen (0-1) mg/dL Urine Leukocytes (NEGATIVE) Urine WBC (Auto) (0-5) /HPF Urine RBC (Auto) (0-2) /HPF U Epithel Cells (Auto) (FEW) /HPF Urine Bacteria (Auto) (NEGATIVE) /HPF Urine RBC (0-5) Lon/ul Urine Mucus (Auto) (NEGATIVE) /HPF Ur Culture Indicated? Urine Glucose (NEGATIVE) mg/dL Urine Opiates Level (NEGATIVE) Ur Methadone (NEGATIVE) Urine Barbiturates (NEGATIVE) Ur Phencyclidine (PCP) (NEGATIVE) Urine Amphetamine (NEGATIVE) U Benzodiazepine Level (NEGATIVE) Urine Cocaine (NEGATIVE) Urine Marijuana (THC) (NEGATIVE) - Progress Progress: improved Air Movement: good Progress Note: Patient reassessed. She feels well. Patient no longer expressing chest pain. D-dimer negative. Troponin negative x2. Chest x-ray negative. Patient states he felt slightly dizzy. Patient received meclizine and dizziness resolved. Patient states he is ready for discharge. She voices no other complaints or concerns at this time. Patient agrees to follow-up with her primary care doctor within 48 hours for evaluation. Portions of this note were created with voice recognition technology. There may be grammatical, spelling, punctuation or sound alike errors 07/26/21 03:21 Blood Culture(s) Obtained: No Antibiotics given: No Counseled pt/family regarding: lab results, diagnosis, need for follow-up, rad results - Departure Departure Disposition: Home Clinical Impression: Chest pain, Dizziness Condition: Stable Critical Care Time: No Referrals: MONIQUE,SHREELEKHA [Primary Care Provider] - Follow up/PCP as directed Additional Instructions: Please follow-up with your family doctor within 48 hours for a reevaluation. Discharge/Care Plan KEVIN AVALOSBILLY FLANNERY was seen on 07/26/21 in the Emergency Room. The patient was counseled regarding Diagnosis,Lab results, Imaging studies, need for follow up and when to return to the Emergency Room. Prescriptions given: Discharge Note I have spoken with the patient and/or caregivers. I have explained the patient's condition, diagnosis and treatment plan based on the information available to me at this time. I have answered the patient's and/or caregiver's questions and addressed any concerns. The patient and/or caregivers have as good understanding of the patient's diagnosis, condition and treatment plan as can be expected at this point. The vital signs have been stable. The patient's condition is stable and appropriate for discharge from the emergency department. The patient will pursue further outpatient evaluation with the primary care physician or other designated or consulting physician as outlined in the discharge instructions. The patient and/or caregivers are agreeable to this plan of care and follow-up instructions have been explained in detail. The patient and/or caregivers have received these instruction. The patient/and or caregivers are aware that any significant change in condition or worsening of symptoms should prompt an immediate return to this or the closest emergency department or call 911.
[2021-07-26 00:44] LABS: Amphetamine,Urine NEGATIVE (NEGATIVE); Barbiturate,Urine NEGATIVE (NEGATIVE); Benzodiazepine,Urine NEGATIVE (NEGATIVE); Cocaine,Urine NEGATIVE (NEGATIVE); Methadone,Urine NEGATIVE (NEGATIVE); Opiate,Urine NEGATIVE (NEGATIVE); PCP,Urine NEGATIVE (NEGATIVE); THC,Urine NEGATIVE (NEGATIVE)
[2021-07-26 00:46] LABS: Mucus SLIGHT /HPF (NEGATIVE)
[2021-07-26 00:48] LABS: Appearance CLEAR (CLEAR); Bilirubin NEGATIVE (NEGATIVE); Dipstick done @ ? MAIN LAB; Glucose NEGATIVE (NEGATIVE); Ketones NEGATIVE (NEGATIVE); Nitrite NEGATIVE (NEGATIVE); Protein,Urine Dip NEGATIVE (Negative); RBC NEGATIVE Ery/ul (0-5); Specific Gravity >=1.030 (1.005-1.025); Urine Cultured Indicated? NO; Urobilinogen 0.2 mg/dL (0-1)
[2021-07-26] MEDS ORDERED: ANTIVERT 25 MG PO ONE (01:26)
[2021-07-26] MEDS ORDERED: ANTIVERT 25 MG ONE (01:27)
[2021-07-26 03:31] VITALS: BP 136/87; PULSE 62
--- NOTE | 2021-07-26 09:16 | XRAY ---
Indication: Chest pain and dizziness. Low blood sugar. Comparison: November 06, 2020. Portable chest again demonstrates normal heart, lungs, and bony thorax with a few incidental tiny calcified granulomas.
== END 2021-07-26 03:45 | disposition home or self-care (01) ==
LOC: ED 21:25
DX: R07.9 Chest pain, unspecified (principal); R42 Dizziness and giddiness; E78.5 Hyperlipidemia, unspecified; I10 Essential (primary) hypertension
CPT/HCPCS: 36000; 36415; 71045; 80053; 80307; 81015; 84484; 85025; 85379; 93005; 93041; 94760; 99284; A9270-GY